=== PATIENT | female | born 1945 | race Caucasian/White ===

== ENCOUNTER 2017-08-16 12:19 | Inpatient (IN) | payer OTHER, BC ==
--- NOTE | 2017-08-16 13:26 | RAD REPORT ---
EXAM DESCRIPTION: Amina Single View08/16/2017 1:18 pm CLINICAL HISTORY: Shortness of breath COMPARISON: 2016 FINDINGS: Mild bilateral social opacities are present. The heart is mildly to moderately enlarged. Postsurgical changes involve the chest. IMPRESSION: Mild CHF
--- NOTE | 2017-08-16 13:38 | EKG ---
Test Date: 2017-08-16 Test Time: 13:15:24 [employer] Support: STEVEN MEASUREMENT RESULTS: Intervals: Rate: 41 MI: 172 QRSD: 150 QT: 508 QTc: 419 [place]: P: 80 MI: 172 QRS: 99 T: 70 INTERPRETIVE STATEMENTS: Marked sinus bradycardia with premature atrial complexes Right bundle branch block Abnormal ECG Compared to ECG 10/12/2015 07:43:26 Atrial premature complex(es) now present Sinus arrhythmia no longer present Atrial abnormality no longer present Electronically Signed On 08-16-17 13:37:49 CDT by Yusuf Montano
[2017-08-16 13:53] LABS: Absolute Lymphocytes (CBC) 2.1 K/uL (0.7-4.9); Absolute Monocytes 0.6 K/uL (0.1-1.3); Absolute Neutrophil 4.1 K/uL (1.8-8.0); Basophils % 0.8 % (0-1.3); Eosinophils % 1.9 % (0-4.4); Hematocrit 37.9 % (36.0-45.0); Lymphocytes % 29.9 % (15.3-44.8); MCV 85.5 fL (80-100); MPV 10.8 fL (7.6-11.3); RBC Red Blood Cell Count 4.43 M/uL (3.86-4.86)
[2017-08-16] MEDS ORDERED: GLUCAGON 1 MG/VIAL ONE (13:55)
[2017-08-16] MEDS ORDERED: FUROSEMIDE 20 MG/ 2ML VIAL ONE (14:03)
[2017-08-16 14:05] LABS: Potassium 5.4 mEq/L (3.6-5.0)
[2017-08-16 14:06] LABS: Protime INR 1.75
[2017-08-16 14:12] LABS: Albumin 3.9 g/dL (3.2-5.5); Bilirubin Direct 0.1 mg/dL (0-0.2); Bilirubin Total 0.8 mg/dL (0.3-1.2); Protein, Total 6.9 g/dL (6.0-8.3)
[2017-08-16 14:15] LABS: CKMB Creatine Kinase MB 1.4 ng/ml (0.3-4.0)
[2017-08-16 14:44] LABS: Thyroid Stimulating Hormone 0.7 uIU/mL (0.34-5.60)
--- NOTE | 2017-08-16 14:52 | EDPHYS ---
Physician Documentation [facility] Name: Jaymie Dill Age: 72 yrs Sex: Female : 1945 Arrival Date: 08/16/2017 Time: 12:23 Bed 4 Private MD: Isaac Andrade B ED Physician Raúl Wilcox HPI: 08/16 13:08 This 72 yrs old Female presents to ER via Wheelchair with complaints of betito Weakness. Historical: - Allergies: 12:44 Codeine; lk1 12:44 Demerol; lk1 12:44 Sulfa (Sulfonamide Antibiotics); lk1 12:44 Tetanus Vaccines \T\ Toxoid; lk1 - Home Meds: 13:19 seroflo 1 puff daily [Active]; Vitamin D3 68630 units oral tab every month [Active]; hj hydralazine 25 mg Oral tab 2 tab daily [Active]; doxazosin 8 mg oral tab 1 tab once daily [Active]; calcitriol 0.25 mcg oral cap 1 cap once daily [Active]; losartan-hydrochlorothiazide 50-12.5 mg oral tab 1 tab once daily [Active]; levothyroxine 88 mcg tab 1 tab once daily [Active]; warfarin 1 mg Oral tab 2 tabs once daily [Active]; - PMHx: 12:44 ESRD; Heart Murmur; Hypertension; Pseudocholinesterase deficiency; lk1 - PSHx: 12:44 open heart surgery; Cholecystectomy; lk1 - Immunization history:: Adult Immunizations up to date. - Social history:: Smoking status: Patient/guardian denies using tobacco. ROS: 13:08 Constitutional: Negative for fever, chills, and weight loss, Eyes: Negative for injury, betito pain, redness, and discharge, ENT: Negative for injury, pain, and discharge, Neck: Negative for injury, pain, and swelling, Respiratory: Negative for shortness of breath, cough, wheezing, and pleuritic chest pain, Abdomen/GI: Negative for abdominal pain, nausea, vomiting, diarrhea, and constipation, Back: Negative for injury and pain, : Negative for injury, bleeding, discharge, and swelling, MS/Extremity: Negative for injury and deformity, Skin: Negative for injury, rash, and discoloration, Psych: Negative for depression, anxiety, suicide ideation, homicidal ideation, and hallucinations, Allergy/Immunology: Negative for hives, rash, and allergies, Endocrine: Negative for neck swelling, polydipsia, polyuria, polyphagia, and marked weight changes, Hematologic/Lymphatic: Negative for swollen nodes, abnormal bleeding, and unusual bruising. 13:08 Cardiovascular: Positive for palpitations. 13:08 Neuro: Positive for dizziness, syncope, weakness. Exam: 13:08 Constitutional: This is a well developed, well nourished patient who is awake, alert, betito and in no acute distress. Head/Face: Normocephalic, atraumatic. Eyes: Pupils equal round and reactive to light, extra-ocular motions intact. Lids and lashes normal. Conjunctiva and sclera are non-icteric and not injected. Cornea within normal limits. Periorbital areas with no swelling, redness, or edema. ENT: Nares patent. No nasal discharge, no septal abnormalities noted. Tympanic membranes are normal and external auditory canals are clear. Oropharynx with no redness, swelling, or masses, exudates, or evidence of obstruction, uvula midline. Mucous membranes moist. Neck: Trachea midline, no thyromegaly or masses palpated, and no cervical lymphadenopathy. Supple, full range of motion without nuchal rigidity, or vertebral point tenderness. No Meningismus. Chest/axilla: Normal chest wall appearance and motion. Nontender with no deformity. No lesions are appreciated. Respiratory: Lungs have equal breath sounds bilaterally, clear to auscultation and percussion. No rales, rhonchi or wheezes noted. No increased work of breathing, no retractions or nasal flaring. Abdomen/GI: Soft, non-tender, with normal bowel sounds. No distension or tympany. No guarding or rebound. No evidence of tenderness throughout. Back: No spinal tenderness. No costovertebral tenderness. Full range of motion. Female : Normal external genitalia. Skin: Warm, dry with normal turgor. Normal color with no rashes, no lesions, and no evidence of cellulitis. MS/ Extremity: Pulses equal, no cyanosis. Neurovascular intact. Full, normal range of motion. Neuro: Awake and alert, GCS 15, oriented to person, place, time, and situation. Cranial nerves II-XII grossly intact. Motor strength 5/5 in all extremities. Sensory grossly intact. Cerebellar exam normal. Normal gait. Psych: Awake, alert, with orientation to person, place and time. Behavior, mood, and affect are within normal limits. 13:08 Cardiovascular: Rate: bradycardic, Rhythm: irregularly irregular, Pulses: Pulses are 4+ in bilateral radial, brachial, femoral, popliteal, posterior tibial and and dorsalis pedis arteries.. Heart sounds: normal, Edema: is not appreciated, JVD: is not appreciated. Vital Signs: 12:45 Pulse 35; Resp 14; Temp 97.7; Pulse Ox 92% on R/A; Weight 58.97 kg (R); Height 5 ft. 3 lk1 in. (160.02 cm) (R); Pain 0/10; 13:13 BP 194 / 51; Pulse 41; Resp 18; Pulse Ox 100% on 2 lpm NC; hj 13:28 BP 195 / 50; Pulse 35; Resp 18; Pulse Ox 100% on 2 lpm NC; hj 14:04 BP 189 / 45; Pulse 36; Resp 18; Pulse Ox 100% on 2 lpm NC; hj 15:09 BP 143 / 47; Pulse 50; Resp 18; Pulse Ox 100% on 2 lpm NC; hj 15:30 BP 146 / 50; Pulse 46; Resp 18; Pulse Ox 100% on 2 lpm NC; hj 12:45 Body Mass Index 23.03 (58.97 kg, 160.02 cm) lk1 12:45 unable to read BP lk1 MDM: 12:52 Patient medically screened. [facility] 13:10 Data reviewed: vital signs, nurses notes, lab test result(s), EKG, radiologic studies, betito plain films. 08/16 13:07 Order name: Basic Metabolic Panel; Complete Time: 14:45 [facility] 08/16 13:07 Order name: BNP; Complete Time: 14:40 [facility] 08/16 13:07 Order name: CBC with Diff; Complete Time: 14:03 [facility] 08/16 13:07 Order name: Ckmb; Complete Time: 14:45 [facility] 08/16 13:07 Order name: CPK; Complete Time: 14:45 [facility] 08/16 13:07 Order name: LFT's; Complete Time: 14:45 [facility] 08/16 13:07 Order name: Magnesium; Complete Time: 14:45 [facility] 08/16 13:07 Order name: PT-INR; Complete Time: 14:40 [facility] 08/16 13:07 Order name: Ptt, Activated; Complete Time: 14:40 [facility] 08/16 13:07 Order name: Troponin (emerg Dept Use Only); Complete Time: 14:40 [facility] 08/16 13:07 Order name: XRAY Chest (1 view); Complete Time: 14:03 [facility] 08/16 13:07 Order name: Lipase; Complete Time: 14:45 [facility] 08/16 13:39 Order name: TSH; Complete Time: 14:45 [facility] 08/16 14:45 Order name: CT Head Brain wo Cont [facility] 08/16 13:07 Order name: EKG; Complete Time: 13:08 [facility] 08/16 13:07 Order name: Cardiac monitoring; Complete Time: 13:12 [facility] 08/16 13:07 Order name: EKG - Nurse/Tech; Complete Time: 13:26 [facility] 08/16 13:07 Order name: IV Saline Lock; Complete Time: 13:12 [facility] 08/16 13:07 Order name: Labs collected and sent; Complete Time: 13:12 [facility] 08/16 14:46 Order name: EKG; Complete Time: 14:46 [facility] 08/16 14:59 Order name: CONS Physician Consult EDWA 08/16 14:59 Order name: Echo with Doppler EDWA 08/16 15:34 Order name: CT EDWA 08/16 16:39 Order name: MRI EDWA 08/16 17:00 Order name: VAS EDWA 08/16 13:07 Order name: O2 Per Protocol; Complete Time: 13:12 [facility] 08/16 13:07 Order name: O2 Sat Monitoring; Complete Time: 13:12 [facility] 08/16 13:25 Order name: Labs - recollect needed; Complete Time: 13:26 08/16 14:46 Order name: EKG - Nurse/Tech; Complete Time: 15:09 [facility] Administered Medications: 13:33 Drug: Glucagon 1 mg Route: IVP; Site: right antecubital; hj 13:40 Follow up: Response: No adverse reaction hj 13:40 Drug: Lasix 20 mg Route: IVP; Site: right antecubital; hj 13:47 Follow up: Response: No adverse reaction hj 14:43 Drug: Albuterol - atroVENT (3:1) (2.5 mg - 0.5 mg) 3 ml Route: Nebulizer; hj 15:09 Follow up: Response: No adverse reaction 14:43 Drug: Kayexalate 30 grams Route: PO; hj 15:08 Follow up: Response: No adverse reaction hj 15:08 Drug: Zofran 4 mg Route: IVP; Site: right antecubital; hj 15:08 Follow up: Response: No adverse reaction Disposition: 08/16/17 14:52 Hospitalization ordered by Jaime Cosby for Inpatient Admission. Preliminary diagnosis are Syncope and collapse, Dizziness and giddiness, Bradycardia, unspecified, Unspecified systolic (congestive) heart failure, Unspecified kidney failure - mild hyperkalemia, Hypercalcemia. - Bed requested for Telemetry/MedSurg (Inpatient). - Status is Inpatient Admission. iw - Condition is Fair. - Problem is new. - Symptoms have improved. UTI on Admission? No Signatures: Dispatcher [employer] EDMS Li England Corey, MD MD cha Williams, Irene, RN RN Thee Landaverde RN RN hj Kluge, Leah RN RN lk1
--- NOTE | 2017-08-16 14:52 | ER ---
Nurse's Notes [facility] Name: Jaymie iDll Age: 72 yrs Sex: Female : 1945 Arrival Date: 08/16/2017 Time: 12:23 Bed 4 Private MD: Isaac Andrade B Diagnosis: Syncope and collapse;Dizziness and giddiness;Bradycardia, unspecified;Unspecified systolic (congestive) heart failure;Unspecified kidney failure-mild hyperkalemia;Hypercalcemia Presentation: 08/16 12:41 Presenting complaint: Patient states: "I am real real weak. I passed out a few days ago lk1 and again last night. I went to Dr. Massey Monday and he started me on Metoprolol, but I was feeling weak before that.". Presenting complaint:. Transition of care: patient was not received from another setting of care. Onset of symptoms was August 12, 2017. Care prior to arrival: None. 12:41 Method Of Arrival: Wheelchair lk1 12:41 Acuity: SALUD 3 lk1 Triage Assessment: 12:44 General: Appears in no apparent distress. Behavior is calm, cooperative, appropriate lk1 for age. Pain: Denies pain. Neuro: Level of Consciousness is awake, alert, obeys commands, Oriented to person, place, time, situation, Moves all extremities. Weakness in bilateral arm(s) leg(s) Speech is normal, Facial symmetry appears normal. Historical: - Allergies: 12:44 Codeine; lk1 12:44 Demerol; lk1 12:44 Sulfa (Sulfonamide Antibiotics); lk1 12:44 Tetanus Vaccines \\T\\ Toxoid; lk1 - Home Meds: 13:19 seroflo 1 puff daily [Active]; Vitamin D3 87287 units oral tab every month [Active]; hj hydralazine 25 mg Oral tab 2 tab daily [Active]; doxazosin 8 mg oral tab 1 tab once daily [Active]; calcitriol 0.25 mcg oral cap 1 cap once daily [Active]; losartan-hydrochlorothiazide 50-12.5 mg oral tab 1 tab once daily [Active]; levothyroxine 88 mcg tab 1 tab once daily [Active]; warfarin 1 mg Oral tab 2 tabs once daily [Active]; - PMHx: 12:44 ESRD; Heart Murmur; Hypertension; Pseudocholinesterase deficiency; lk1 - PSHx: 12:44 open heart surgery; Cholecystectomy; lk1 - Immunization history:: Adult Immunizations up to date. - Social history:: Smoking status: Patient/guardian denies using tobacco. Screenin:07 Abuse screen: Denies threats or abuse. Denies injuries from another. Nutritional hj screening: No deficits noted. Tuberculosis screening: No symptoms or risk factors identified. Fall Risk Fall in past 12 months (25 points). Assessment: 13:09 General: Appears in no apparent distress. uncomfortable, slender, Behavior is calm, hj cooperative, appropriate for age. Pain: Denies pain. Neuro: Level of Consciousness is awake, alert, obeys commands, Oriented to person, place, time, situation, Appropriate for age. Cardiovascular: Capillary refill < 3 seconds Patient's skin is warm and dry. Respiratory: Airway is patent Respiratory effort is even, unlabored, Respiratory pattern is regular. GI: No signs and/or symptoms were reported involving the gastrointestinal system. : No signs and/or symptoms were reported regarding the genitourinary system. EENT: No signs and/or symptoms were reported regarding the EENT system. Derm: No signs and/or symptoms reported regarding the dermatologic system. Musculoskeletal: No signs and/or symptoms reported regarding the musculoskeletal system. 14:04 Reassessment: Patient and/or family updated on plan of care and expected duration. Pain hj level reassessed. Patient is alert, oriented x 3, equal unlabored respirations, skin warm/dry/pink. awaiting results;. 15:06 Reassessment: Patient and/or family updated on plan of care and expected duration. Pain hj level reassessed. Patient is alert, oriented x 3, equal unlabored respirations, skin warm/dry/pink. vomited x 1; MD notified with orders;. 15:19 Reassessment: wheeled to CT;. hj 15:30 Reassessment: Patient and/or family updated on plan of care and expected duration. Pain hj level reassessed. Patient is alert, oriented x 3, equal unlabored respirations, skin warm/dry/pink. came back from CT;. 16:39 Reassessment: wheeled to MRI:. hj Vital Signs: 12:45 Pulse 35; Resp 14; Temp 97.7; Pulse Ox 92% on R/A; Weight 58.97 kg (R); Height 5 ft. 3 lk1 in. (160.02 cm) (R); Pain 0/10; 13:13 BP 194 / 51; Pulse 41; Resp 18; Pulse Ox 100% on 2 lpm NC; hj 13:28 BP 195 / 50; Pulse 35; Resp 18; Pulse Ox 100% on 2 lpm NC; hj 14:04 BP 189 / 45; Pulse 36; Resp 18; Pulse Ox 100% on 2 lpm NC; hj 15:09 BP 143 / 47; Pulse 50; Resp 18; Pulse Ox 100% on 2 lpm NC; hj 15:30 BP 146 / 50; Pulse 46; Resp 18; Pulse Ox 100% on 2 lpm NC; hj 12:45 Body Mass Index 23.03 (58.97 kg, 160.02 cm) lk1 12:45 unable to read BP lk1 ED Course: 12:23 Patient arrived in ED. mr 12:23 Isaac Andrade MD is Private Physician. mr 12:44 Triage completed. lk1 12:50 Arm band placed on right wrist. lk1 12:52 Raúl Wilcox MD is Attending Physician. betito 12:53 Thee Landaverde RN is Primary Nurse. hj 13:07 Patient has correct armband on for positive identification. Placed in gown. Bed in low hj position. Call light in reach. Side rails up X2. Adult w/ patient. 13:09 Initial lab(s) drawn, by me, sent to lab. Inserted saline lock: 20 gauge in right hj antecubital area, using aseptic technique. Blood collected. 13:15 X-ray completed. Portable x-ray completed in exam room. Patient tolerated procedure jb2 well. 13:16 XRAY Chest (1 view) In Process Unspecified. EDMS 13:35 EKG done, by supply chain tech. reviewed by Raúl Wilcox MD. tc 14:50 Jaime Cosby DO is Hospitalizing Provider. betito 14:54 Radiology exam delayed due to bedside bathroom at this time. jg1 15:[address] via stretcher. nj 15:25 CT completed. Patient tolerated procedure well. Patient moved back from CT. nj 16:21 Patient moved to MRI via stretcher. em2 16:24 MRI completed. Patient tolerated well. em2 16:25 Patient taken to ultrasound. via stretcher. em2 16:52 Ultrasound completed. Patient tolerated well. Note: via stretcher. . Patient taken to sheree an exam room. 17:02 No provider procedures requiring assistance completed. Patient admitted, IV remains in hj place. Administered Medications: 13:33 Drug: Glucagon 1 mg Route: IVP; Site: right antecubital; hj 13:40 Follow up: Response: No adverse reaction hj 13:40 Drug: Lasix 20 mg Route: IVP; Site: right antecubital; hj 13:47 Follow up: Response: No adverse reaction hj 14:43 Drug: Albuterol - atroVENT (3:1) (2.5 mg - 0.5 mg) 3 ml Route: Nebulizer; hj 15:09 Follow up: Response: No adverse reaction hj 14:43 Drug: Kayexalate 30 grams Route: PO; hj 15:08 Follow up: Response: No adverse reaction hj 15:08 Drug: Zofran 4 mg Route: IVP; Site: right antecubital; hj 15:08 Follow up: Response: No adverse reaction Outcome: 14:52 Decision to Hospitalize by Provider. betito 17:02 Admitted to Med/surg accompanied by tech, family with patient, via stretcher, room 212, hj Report called to MARINO Stiles 17:02 Condition: stable 17:02 Instructed on the need for admit, Demonstrated understanding of instructions. 17:15 Patient left the ED. iw Signatures: Dispatcher [employer] EDRaúl Goode MD MD cha Rivera, Maria mr Cordero, Jason jb2 Meghan Dominguez jg1 Unique Gilmore, Thierry Batista RN em2 Janette Sommers, visual supervisor EKG [facility] Thee Landaverde RN RN hj Kluge, Leah, RN RN Temo Rice jd, Nathan nj
[2017-08-16] MEDS ORDERED: SOD POLYSTYREN SUL 15 GM/60 ML UCUP ONE (15:14)
[2017-08-16] MEDS ORDERED: ALBUTEROL 2.5 MG/3 ML NEB SOL ONE (15:14)
[2017-08-16] MEDS ORDERED: IPRATROPIUM BROM 0.5MG/2.5ML ONE (15:14)
[2017-08-16] MEDS ORDERED: ONDANSETRON 4 MG/2 ML VIAL ONE (15:19)
[2017-08-16] MEDS ORDERED: ACETAMINOPHEN 500 MG TAB PO PRN (15:24)
[2017-08-16] MEDS ORDERED: ONDANSETRON 4 MG/2 ML VIAL IV PRN (15:24)
[2017-08-16] MEDS ORDERED: IPRATROPIUM BROM 0.5MG/2.5ML NEB PRN (15:24)
[2017-08-16] MEDS ORDERED: ALBUTEROL 2.5 MG/3 ML NEB SOL NEB PRN (15:24)
--- NOTE | 2017-08-16 15:33 | RAD REPORT ---
EXAM DESCRIPTION: CT - Head Brain Wo Cont - 08/16/2017 3:26 pm CLINICAL HISTORY: Syncope COMPARISON: None. TECHNIQUE: Computed axial tomography of the head was obtained. IV contrast was not requested. All CT scans are performed using dose optimization technique as appropriate and may include automated exposure control or mA/KV adjustment according to patient size. FINDINGS: An intracranial bleed is not seen . The ventricles are normal in caliber. No extra-axial fluid collection is noted. Fluid within the sinuses/ mastoids is not seen. IMPRESSION: No acute intracranial abnormality is seen. If patient's symptoms persist MRI of the bra in would be recommended.
--- NOTE | 2017-08-16 15:44 | P.HP ---
Certification for Inpatient Patient admitted to: Inpatient With expected LOS: >2 Midnights Patient will require the following post-hospital care: None Practitioner: I am a practitioner with admitting privileges, knowledge of patient current condition, hospital course, and medical plan of care. Services: Services provided to patient in accordance with Admission requirements found in Title 42 Section 412.3 of the Code of Federal Regulations Patient History Date of Service: 08/16/17 Primary Care Provider: Dr. Andrade; Card-Dr. Raygoza; Pulm-Dr. Hamilton; Nephrology-Dr. Connors Reason for admission: Fatigue, syncope, shortness of breath History of Present Illness: 72-year-old female presented emergency room with multiple complaints including weakness, syncope and shortness of breath. The patient reports that she has been having episodes of syncope since the weekend. She 1st had an episode on Monday morning. This was very brief. She did not go to the emergency room at that time. Then she had 1 last night. Patient also reports blood pressure being elevated. She went to see her marine service manager on Monday. She was started on metoprolol at that time. Over the last day she has been having increasing shortness of breath. Weakness has been noted. She denies any chest pain. No significant nausea or vomiting noted. In the ER she was evaluated. CBC was unremarkable. Lab was remarkable for elevated potassium of 5.4, creatinine 2.68 with a GFR 17. Calcium 10.7. Troponin less than 0.03. BNP elevated at 484. Chest x-ray showed mild CHF. Patient also had bradycardia with a rate as low as 30 ranging from 30-50. Blood pressure elevated at 180 systolic. Due to nature of her symptoms the patient was admitted for further evaluation. She was treated in the ER for her hyperkalemia. In the ER when I evaluated the patient, she appeared without any respiratory distress. No significant edema to the lower extremities. Patient has significant history of pulmonary hypertension, chronic renal disease, history of DVT on anti coagulation. She sees multiple specialists including cardiology , nephrology, and pulmonology. Patient has a history of ventricular septal defect repair. Patient takes multiple medications for blood pressure including hydralazine, doxazosin, losartan and hydrochlorothiazide. Allergies Sulfa (Sulfonamide Antibiotics) Allergy (Intermediate, Verified 10/11/15 23:03) Anaphylaxis Tetanus Vaccines and Toxoid [Tetanus Vaccines & Toxoid] Allergy (Intermediate, Verified 10/11/15 23:03) unknown codeine Allergy (Mild, Verified 10/11/15 23:03) Nausea/Vomiting meperidine HCl [From Demerol] Allergy (Mild, Verified 10/11/15 23:03) Nausea/Vomiting Home medications list reviewed: Yes Home Medications: Amlodipine Besylate/Benazepril [Lotrel 10-20 mg Capsule] 1 each PO DAILY Cholecalciferol (Vitamin D3) [Vitamin D3] 1,000 unit PO DAILY 10/12/15 Citalopram Hydrobromide [Celexa] 10 mg PO DAILY 10/12/15 Fexofenadine HCl [Angelika Allergy] 180 mg PO DAILY 10/12/15 Folic Acid 0.4 mg PO DAILY 10/12/15 Levothyroxine [Synthroid*] 88 mcg PO [id number] 10/12/15 Magnesium Oxide [Magnesium] 400 mg PO DAILY 10/12/15 Pravastatin [Pravachol*] 40 mg PO DAILY 10/12/15 Vit A/Vit C/Vit E/Zinc/Copper [Preservision Areds Softgel] 1 each PO DAILY 10/11 Warfarin Sodium [Coumadin*] 2 mg PO DAILY 5 PM 10/12/15 Hydralazine [Apresoline*] 50 mg PO TID #90 tab 10/15/15 Levofloxacin [Levaquin] 500 mg PO DAILY #7 tab 10/15/15 Magnesium Oxide [Mag 0X*] 800 mg PO BID #20 tab 10/15/15 - Past Medical/Surgical History Diabetic: No -: Severe pulmonary hypertension -: History VSD repair -: COPD -: Chronic renal disease -: Hypothyroidism -: History DVT, chronic anti coagulation therapy -: VSD repair 1999 -: Cholecystectomy Psychosocial/ Personal History: The patient is of 3 years. She has no children. - Family History Family History: Reviewed- Non-Contributory - Family History Father -: Heart disease, Hypertension Notes: heart murmur - Social History Smoking Status: Never smoker Alcohol use: No CD- Drugs: No Caffeine use: Yes Place of Residence: Home Review of Systems General: Weakness, Malaise, As per HPI Eyes: Unremarkable ENT: Unremarkable Respiratory: Shortness of Breath, As per HPI Cardiovascular: As per HPI Gastrointestinal: As per HPI Genitourinary: Unremarkable Musculoskeletal: Unremarkable Integumentary: Unremarkable Neurological: Weakness, As per HPI Lymphatics: Unremarkable Physical Examination - Physical Exam General: Alert, In no apparent distress, Oriented x3, Cooperative HEENT: Atraumatic, Normocephalic, PERRLA, Mucous membr. moist/pink Neck: Supple, No Thyromegaly Respiratory: Crackles/rales (Minimal crackles to the bases bilateral, good air movement bilateral to the anterior chest) Cardiovascular: Abnormal pulses (Sinus bradycardia) Gastrointestinal: Normal bowel sounds, Soft and benign, Non-distended, No ascites, No tenderness, No masses, No rebound, No guarding Musculoskeletal: No contractures, No erythema, No tenderness, No warmth Integumentary: No tenderness/swelling, No erythema, No warmth, No cyanosis Neurological: Normal speech, Normal strength at 5/5 x4 extr, Normal tone, Normal affect Lymphatics: No axilla or inguinal lymphadenopathy - Studies Laboratory Data (last 24 hrs) 08/16/17 13:35: PT 20.8 H, INR 1.75, APTT 45.1 H 08/16/17 13:35: WBC 7.0, Hgb 12.4, Hct 37.9, Plt Count 152 08/16/17 13:35: B-Natriuretic Peptide 484 H 08/16/17 13:35: Sodium 138, Potassium 5.4 H, BUN 70 H, Creatinine 2.69 H, Glucose 94, Magnesium 2.0, Total Bilirubin 0.8, AST 41, ALT 26, Alkaline Phosphatase 110, Lipase 43 Assessment and Plan - Problems (Diagnosis) (1) Syncope Current Visit: Yes Status: Acute Plan: Etiology unknown. Likely from bradycardia. Patient with elevated blood pressure. Will make adjustments to medication. Will discontinue metoprolol. Will continue with hydralazine and Doxazosin. Will add Norvasc. Will hold losartan/hydrochlorothiazide at this time. Pulmonology, cardiology and Nephrology have been consulted to further address other multiple issues. Will check CT head. Will check echocardiogram and carotid Doppler. Will provide IV Lasix due to pulmonary edema noted on exam. Will monitor this closely as the patient has underlying chronic renal disease. Patient also treated for hyperkalemia. Patient given Kayexalate in the emergency room. Will continue monitor closely. Qualifiers: Syncope type: unspecified Qualified Code(s): R55 - Syncope and collapse (2) Chronic renal disease Current Visit: Yes Status: Acute Plan: Will monitor this closely. Nephrology consulted to further evaluate and address. Qualifiers: Chronic kidney disease stage: stage 4 (severe) Qualified Code(s): N18.4 - Chronic kidney disease, stage 4 (severe) (3) Pulmonary edema Current Visit: Yes Status: Acute Plan: Patient had mild pulmonary edema noted on chest x-ray. Will provide Lasix. This should help with hyperkalemia as well. Patient with chronic renal disease. Will monitor this closely. Nephrology consulted. Pulmonology also consulted Qualifiers: Chronicity: acute Qualified Code(s): J81.0 - Acute pulmonary edema (4) Pulmonary hypertension Current Visit: Yes Status: Chronic Plan: Patient with history of severe pulmonary hypertension. Will continue with diuresis. Pulmonology consulted to further evaluate. Will check echocardiogram. (5) Hypothyroidism Current Visit: Yes Status: Chronic Plan: Will continue with her medication. Will check TSH. Qualifiers: Hypothyroidism type: unspecified Qualified Code(s): E03.9 - Hypothyroidism , unspecified (6) COPD (chronic obstructive pulmonary disease) Current Visit: Yes Status: Chronic Plan: Patient with history of COPD. Will provide medication. Pulmonology consulted. Qualifiers: COPD type: chronic bronchitis (7) Chronic anticoagulation Current Visit: Yes Status: Chronic Plan: Will continue with her Coumadin. Will monitor INR closely. (8) History of DVT (deep vein thrombosis) Current Visit: Yes Status: Chronic Plan: Patient on Coumadin. Will continue as above. (9) Bradycardia Onset Date: 10/13/15 Current Visit: No Status: Acute Plan: Bradycardia likely related to new medication added recently. Metoprolol has been discontinued. Cardiology consulted to further evaluate. (10) Hyperkalemia Onset Date: 10/13/15 Current Visit: No Status: Acute Plan: Patient given Kayexalate in the ER. Will monitor this closely. Will provide Lasix. Discharge Plan: Home Plan to discharge in: Greater than 2 days - Advance Directives Does patient have a Living Will: Yes Does patient have a Durable POA for Healthcare: Yes - Code Status/Comfort Care Code Status Assessed: Yes Time Spent Managing Pts Care (In Minutes): 55
--- NOTE | 2017-08-16 16:38 | RAD REPORT ---
EXAM DESCRIPTION: MRI - Brain Wo Cont - 08/16/2017 4:26 pm CLINICAL HISTORY: Altered consciousness, syncope, CVA. COMPARISON: 08/16/2017 TECHNIQUE: Multi-sequence, multiplanar MR imaging of the brain was performed without contrast. FINDINGS: No intracranial hemorrhage, hydrocephalus or extra-axial fluid collections. No edema or sh ift of midline structures. No findings to suspect brain mass. DWI is negative for acute CVA. Midline structures are normally formed. Mastoid air cells and paranasal sinuses are clear. IMPRESSION: No acute or concerning intracranial abnormalities.
[2017-08-16 16:55] VITALS: BMI 23.0
[2017-08-16] MEDS ORDERED: WARFARIN SODIUM 1 MG TAB PO SCH (17:00)
--- NOTE | 2017-08-16 17:00 | RAD REPORT ---
EXAM DESCRIPTION: ARTEMIO - CP - 08/16/2017 4:53 pm CLINICAL HISTORY: Syncope COMPARISON: None. TECHNIQUE: Real-time sonographic evaluation of both carotid systems was performed. Doppler interroga tion was performed with waveform tracing bilaterally. FINDINGS: Normal high resistance waveforms are noted in both external carotid arteries. The common c arotid arteries and internal carotid arteries show normal low resistance waveforms. Minimal soft plaquing is seen in both proximal internal carotid arteries. Peak systolic and end diast olic velocity values and the ICA/CCA ratios are in the non-hemodynamically significant range. Antegrade flow seen in both vertebral arteries. IMPRESSION: Minimal soft plaquing in both proximal internal carotid arteries. No evidence of a hemodynamically significant stenosis.
[2017-08-16] MEDS: FUROSEMIDE 20 MG/ 2ML VIAL IV SCH (17:56)
[2017-08-16 18:16] LABS: Urine Appearance CLEAR; Urine Bilirubin NEGATIVE (NEG); Urine Blood NEGATIVE (NEG); Urine Color YELLOW; Urine Glucose NEGATIVE (NEG); Urine Protein TRACE (NEG); Urine Urobilinogen 0.2 mg/dL (0.2-1.0)
[2017-08-16 18:21] LABS: Urine Microscopic Reflex NO UMIC
[2017-08-16] MEDS: ARFORMOTEROL TARTRATE 15 MCG/2 ML VIAL.NEB NEB SCH (19:30)
[2017-08-16] MEDS: HYDRALAZINE HCL 25 MG TABLET PO SCH (20:17)
--- NOTE | 2017-08-16 20:54 | RAD REPORT ---
EXAM DESCRIPTION: US - Renal Ultrasound-Complete - 08/16/2017 8:42 pm CLINICAL HISTORY: . Acute renal failure COMPARISON: 2017 FINDINGS: The right kidney measures 9 cm with an increased echotexture. The left kidney measures 9 cm with an increased echotexture. Hydronephrosis is not seen. A 1.3 centimeter cyst is present within each kidney IMPRESSION: Increased renal echotexture consistent with parenchymal disease No hydronephrosis
[2017-08-16] MEDS ORDERED: DOXAZOSIN 4 MG TAB PO SCH (21:00)
[2017-08-16 21:37] LABS: CKMB Creatine Kinase MB 1.8 ng/ml (0.3-4.0); Uric Acid 8.7 mg/dL (2.6-8.0)
[2017-08-17 05:09] LABS: Absolute Monocytes 0.7 K/uL (0.1-1.3); Absolute Neutrophil 4.3 K/uL (1.8-8.0); Basophils % 0.9 % (0-1.3); Eosinophils % 1.2 % (0-4.4); Hematocrit 36.5 % (36.0-45.0); Lymphocytes % 27.8 % (15.3-44.8); MCH 27.9 pg (27.0-35.0); MCV 85.1 fL (80-100); MPV 10.9 fL (7.6-11.3); Monocytes % 9.5 % (3.3-12.3); RBC Red Blood Cell Count 4.29 M/uL (3.86-4.86)
[2017-08-17 05:23] LABS: Protime INR 1.89
[2017-08-17 05:49] LABS: CKMB Creatine Kinase MB 2.2 ng/ml (0.3-4.0)
[2017-08-17] MEDS ORDERED: LEVOTHYROXINE SOD 0.088 MG TAB PO SCH (06:00)
[2017-08-17] MEDS ORDERED: PANTOPRAZOLE 40MG TABLET PO SCH (07:30)
[2017-08-17] MEDS: ARFORMOTEROL TARTRATE 15 MCG/2 ML VIAL.NEB NEB SCH (07:31)
--- NOTE | 2017-08-17 08:12 | ECHO ---
HEIGHT: 5 ft 3 in WEIGHT: 130 lb 0.106 oz DATE OF STUDY: 08/16/[address]: Jaime Cosby DO 2-DIMENSIONAL: YES M.MODE: YES DOPPLER: YES COLOR FLOW: YES TDS: NO PORTABLE: NO DEFINITY: NO BUBBLE STUDY: NO DIAGNOSIS: CONGESTIVE HEART FAILURE CARDIAC HISTORY: CATHERIZATION: NO SURGERY: YES PROSTHETIC VALVE: NO PACEMAKER: NO MEASUREMENTS (cm) DIASTOLIC (NORMALS) SYSTOLIC (NORMALS) IVSd 0.8 (0.6-1.2) LA Diam (1.9-4.0) LVEF 79% LVIDd 4.3 (3.5-5.7) LVIDs 2.3 (2.0-3.5) %FS 47% LVPWd 1.0 (0.6-1.2) Ao Diam 2.3 (2.0-3.7) 2 DIMENSIONAL ASSESSMENT: RIGHT ATRIUM: NORMAL LEFT ATRIUM: NORMAL RIGHT VENTRICLE: NORMAL LEFT VENTRICLE: NORMAL TRICUSPID VALVE: NORMAL MITRAL VALVE: NORMAL PULMONIC VALVE: NORMAL AORTIC VALVE: NORMAL PERICARDIAL EFFUSION: NONE AORTIC ROOT: NORMAL LEFT VENTRICULAR WALL MOTION: NORMAL. DOPPLER/COLOR FLOW: MODERATE TRICUSPID REGURGITATION. SEVERE PULMONARY HYPERTENSION. ESTIMATED RIGHT VENTRICULAR SYSTOLIC PRESSURE 80mmHg. COMMENTS: NORMAL 2D ECHO. MODERATE TRICUSPID REGURGITATION. SEVERE PULMONARY HYPERTENSION. TECHNOLOGIST: HAVEN KAHN
--- NOTE | 2017-08-17 08:25 | RAD REPORT ---
EXAM DESCRIPTION: Amina Pa And Lat (2 Views)08/17/2017 6:34 am CLINICAL HISTORY: Shortness of breath COMPARISON: August 16 FINDINGS: Minimal improvement in bilateral interstitial lung opacities has occurred. The heart has m ildly decreased in size and is within normal limits. IMPRESSION: Improvement in mild CHF
[2017-08-17 08:28] LABS: Magnesium 2.1 mg/dL (1.8-2.5); Thyroid Stimulating Hormone 0.42 uIU/mL (0.34-5.60)
[2017-08-17 08:46] LABS: Potassium 5.7 mEq/L (3.6-5.0)
[2017-08-17] MEDS ORDERED: SOD POLYSTYREN SUL 15 GM/60 ML UCUP PO ONE (08:47)
[2017-08-17] MEDS: HYDRALAZINE HCL 25 MG TABLET PO SCH (09:00)
[2017-08-17] MEDS ORDERED: AMLODIPINE 5 MG TAB PO SCH (09:00)
[2017-08-17] MEDS: FUROSEMIDE 20 MG/ 2ML VIAL IV SCH (09:00)
[2017-08-17 09:29] VITALS: O2SAT 98
--- NOTE | 2017-08-17 10:10 | EKG ---
Test Date: 2017-08-16 Test Time: 15:09:58 Hospital Product Specialist: STEVEN MEASUREMENT RESULTS: Intervals: Rate: 47 [place]: 176 QRSD: 144 QT: 482 QTc: 426 [place]: P: 76 [place]: 176 QRS: 99 T: 66 INTERPRETIVE STATEMENTS: Sinus bradycardia with sinus arrhythmia Right bundle branch block Abnormal ECG Compared to ECG 08/16/2017 13:15:24 Atrial premature complex(es) no longer present Electronically Signed On 08-17-17 10:07:56 CDT by Jerry Raygoza
--- NOTE | 2017-08-17 11:51 | CON ---
Date of Consultation: 08/17/2017 Reason For Consultation: Syncope and weakness. History Of Present Illness: Ms. Dill is a 72-year-old white woman who has a history of ventricu lar septal defect repair and pulmonary hypertension secondary to that. She has a history of renal in sufficiency that is severe, hypertension. She has hypertension that is poorly controlled. I saw her in the office about 3 days ago. We started her on low-dose beta-irina. Her blood pressure is muc h better controlled, but she came in with a heart rate of 40, syncopal episode, and chronic right bun dle-branch block. Renal Doppler in the office has been done recently and is negative and had a negat hyacinth Cardiolite within the last year. Denied chest pain, nausea, vomiting, diaphoresis, PND, orthopne a, pedal edema, or palpitations. Past Medical History: As stated above. Allergies: INCLUDE CODEINE, DEMEROL, SULFA, AND TETANUS. Review of Systems: Negative. Social History: Negative. Family History: Negative. Medications: At home include hydralazine, Toprol, Cardura, Hyzaar, and Coumadin. Physical Examination: General: She appears to be rather weak, fatigued. No acute distress otherwise. Vital Signs: Stable. Her blood pressure is 140/64. Her heart rate in the 40s. HEENT: Negative. Neck: Supple without any bruit, lymphadenopathy, JVD, or thyromegaly. Chest: Clear. Cardiac: Revealed a regular rhythm and rate with a with a 3/6 holosystolic murmur radiating to the b ack. No S3 or S4, gallops, no rubs. Abdomen: Benign. Extremities: Reveal no clubbing, cyanosis, or edema. Diagnostic Data: Her INR was 1.75. Her calcium was 10.7. Chest x-ray showed mild failure. BNP is 484. Creatinine is 2.69. MRI is negative of the brain. Carotid Doppler negative. EKG showed right bundle-branch block, bradycardia. Impression And Plan: 1.Syncope, may be secondary to bradycardia. 2.History of ventricular septal defect repair. 3.Severe renal insufficiency. 4.Hypertension. Negative renal Doppler, negative carotid, negative stress test. There is an echoca rdiogram pending for today. I will consider switching the Hyzaar to losartan alone and maybe give he r low-dose Lasix to go home with. I would definitely discontinue her beta-irina. I think we will see what she does without the beta-irina. I would like her to get an event monitor in my office as an outpatient and she may end up needing a pacemaker. 5.I will discuss the case further with Dr. Cosby. RENUKA/MARCO Voice ID: [id number] Report ID: [id number]
[2017-08-17 12:20] VITALS: BP 193/73; TEMP 97.4
--- NOTE | 2017-08-17 13:02 | P.DS ---
Admission Date: 08/16/17 Discharge Date: 08/17/17 Primary Care Provider: Dr. Andrade; Card-Dr. Raygoza; Pulm-Dr. Hamilton; Nephrology-Dr. Connors Disposition: ROUTINE DISCHARGE Discharge Condition: GOOD Reason for Admission: Fatigue, syncope, shortness of breath Consultations: Pulmonology-Dr. Hamilton Cardiology-Dr. Raygoza Nephrology-Dr. Morales Procedures: Echocardiogram: Ejection fraction 79%. Severe pulmonary hypertension noted. MRI brain: No acute abnormality noted. CT scan: No acute abnormality noted. Carotid Doppler: No significant stenosis noted. - Problems (1) Syncope Onset Date: 08/17/17 Current Visit: Yes Status: Acute Qualifiers: Syncope type: unspecified Qualified Code(s): R55 - Syncope and collapse (2) Chronic renal disease Onset Date: 08/17/17 Current Visit: Yes Status: Acute Qualifiers: Chronic kidney disease stage: stage 4 (severe) Qualified Code(s): N18.4 - Chronic kidney disease, stage 4 (severe) (3) Pulmonary edema Onset Date: 08/17/17 Current Visit: Yes Status: Acute Qualifiers: Chronicity: acute Qualified Code(s): J81.0 - Acute pulmonary edema (4) Pulmonary hypertension Onset Date: 08/17/17 Current Visit: Yes Status: Chronic (5) Hypothyroidism Onset Date: 08/17/17 Current Visit: Yes Status: Chronic Qualifiers: Hypothyroidism type: unspecified Qualified Code(s): E03.9 - Hypothyroidism , unspecified (6) COPD (chronic obstructive pulmonary disease) Onset Date: 08/17/17 Current Visit: Yes Status: Chronic Qualifiers: COPD type: chronic bronchitis (7) Chronic anticoagulation Onset Date: 08/17/17 Current Visit: Yes Status: Chronic (8) History of DVT (deep vein thrombosis) Onset Date: 08/17/17 Current Visit: Yes Status: Chronic (9) Bradycardia Onset Date: 08/17/17 Current Visit: No Status: Acute (10) Hyperkalemia Onset Date: 08/17/17 Current Visit: No Status: Acute Brief History of Present Illness: 72-year-old female presented emergency room with multiple complaints including weakness, syncope and shortness of breath. The patient reports that she has been having episodes of syncope since the weekend. She 1st had an episode on Monday morning. This was very brief. She did not go to the emergency room at that time. Then she had 1 last night. Patient also reports blood pressure being elevated. She went to see her conditioner tender on Monday. She was started on metoprolol at that time. Over the last day she has been having increasing shortness of breath. Weakness has been noted. She denies any chest pain. No significant nausea or vomiting noted. In the ER she was evaluated. CBC was unremarkable. Lab was remarkable for elevated potassium of 5.4, creatinine 2.68 with a GFR 17. Calcium 10.7. Troponin less than 0.03. BNP elevated at 484. Chest x-ray showed mild CHF. Patient also had bradycardia with a rate as low as 30 ranging from 30-50. Blood pressure elevated at 180 systolic. Due to nature of her symptoms the patient was admitted for further evaluation. She was treated in the ER for her hyperkalemia. In the ER when I evaluated the patient, she appeared without any respiratory distress. No significant edema to the lower extremities. Patient has significant history of pulmonary hypertension, chronic renal disease, history of DVT on anti coagulation. She sees multiple specialists including cardiology , nephrology, and pulmonology. Patient has a history of ventricular septal defect repair. Patient takes multiple medications for blood pressure including hydralazine, doxazosin, losartan and hydrochlorothiazide. Hospital Course: The patient did well during the course of her stay. The patient had no further syncopal episode. Patient had bradycardia, rate around 45-60. Patient was evaluated by cardiology. Echocardiogram shows severe pulmonary hypertension with ejection fraction 79%. Patient had MRI brain, CT head, and carotid Doppler which were unremarkable. During her stay medications were adjusted. Losartan/hydrochlorothiazide and metoprolol were discontinued. At discharge patient has been started on Lasix 40 mg daily and Norvasc 5 mg daily. Patient will continue with Cardura 4 mg 1 pill twice daily. Hydralazine has been adjusted to 25 mg 1 pill 3 times a day. Cardiology recommended no further intervention at this time. Pulmonology if reported that she has not been able to afford specialized medication for pulmonary hypertension. Cardiology recommends that the patient can be discharged. The patient will follow up with cardiology within 1 week. Cardiology plans to have the patient get an event monitor set up as an outpatient to monitor and evaluate the bradycardia. Cardiology also plans to send the patient to be pulmonary hypertensive Clinic in [place]. Patient will likely require pulmonary hypertensive medication after her evaluation in [place]. Recommendation is to maintain blood pressures less 150/80. Further adjustment can be done by cardiology. Patient has hypothyroidism. She will continue with her medication-Levoxyl 88 mcg daily. Patient has history of COPD. She will continue with her inhaler-Advair/Proair. She does have home oxygen. She is to maintain oxygen greater than 90%. The patient has home oxygen. Patient will follow up with pulmonology as an outpatient to further monitor. Patient with chronic renal disease. Patient had acute on chronic disease. This remained stable. Patient will follow up with nephrology as an outpatient to further address. Patient will continue with a 1500 cc per day fluid restriction. Patient will continue with Lasix as stated above. Patient likely has GERD. She will continue with Protonix 40 mg 1 pill once daily. Patient with history of DVT on chronic anti coagulation therapy. She will continue with Coumadin. Patient will need to have her INR followed by her PCP or cardiology. Further adjustment can be done by them. Patient did have some hyperkalemia. She was given Kayexalate. At discharge potassium was within normal range. Recommendation to recheck lab-BMP in 1 week to monitor progress. Losartan has been discontinued. Vital Signs/Physical Exam: Temp Pulse Resp BP Pulse Ox 97.4 F 50 18 193/73 H 98 08/17/17 12:00 08/17/17 12:00 08/17/17 12:00 08/17/17 12:00 08/17/17 12:00 General: Alert, In no apparent distress, Oriented x3, Cooperative HEENT: Atraumatic Neck: Supple Respiratory: Clear to auscultation bilaterally, Normal air movement Gastrointestinal: Normal bowel sounds, Soft and benign, Non-distended, No rebound, No guarding Musculoskeletal: No erythema, No tenderness, No warmth Integumentary: No tenderness/swelling, No erythema, No warmth, No cyanosis Neurological: Normal speech, Normal strength at 5/5 x4 extr, Normal tone, Normal affect Laboratory Data at Discharge: WBC 7.1 K/uL (4.3-10.9) 08/17/17 04:50 Hgb 12.0 g/dL (12.0-15.0) 08/17/17 04:50 Hct 36.5 % (36.0-45.0) 08/17/17 04:50 Plt Count 142 K/uL (152-406) L 08/17/17 04:50 PT 22.4 SECONDS (9.5-12.5) H 08/17/17 04:50 INR 1.89 08/17/17 04:50 APTT 45.1 SECONDS (24.3-36.9) H 08/16/17 13:35 Sodium 137 mEq/L (135-145) 08/17/17 04:50 Potassium 4.6 mEq/L (3.6-5.0) 08/17/17 09:55 BUN 80 mg/dL (6-20) H 08/17/17 04:50 Creatinine 2.87 mg/dL (0.44-1.00) H 08/17/17 04:50 Glucose 83 mg/dL (65-120) 08/17/17 04:50 Uric Acid Cancelled 08/16/17 Unknown Magnesium 2.1 mg/dL (1.8-2.5) 08/17/17 04:50 Total Bilirubin 0.8 mg/dL (0.3-1.2) 08/16/17 13:35 AST 41 IU/L (10-42) 08/16/17 13:35 ALT 26 IU/L (10-60) 08/16/17 13:35 Alkaline Phosphatase 110 IU/L (42-121) 08/16/17 13:35 Troponin I 0.04 ng/mL (<0.03) H 08/17/17 04:50 B-Natriuretic Peptide 484 pg/ml (<=100) H 08/16/17 13:35 Triglycerides 120 mg/dL (35-160) 08/17/17 04:50 Cholesterol 170 mg/dL (<200) 08/17/17 04:50 HDL Cholesterol 55 mg/dL (29-89) 08/17/17 04:50 Cholesterol/HDL Ratio 3.09 08/17/17 04:50 Lipase 43 U/L (22-51) 08/16/17 13:35 Home Medications: Fexofenadine HCl [Angelika Allergy] 180 mg PO DAILY 10/12/15 Levothyroxine [Synthroid*] 88 mcg PO [id number] 10/12/15 Vit A/Vit C/Vit E/Zinc/Copper [Preservision Areds Softgel] 1 each PO DAILY 10/11 Warfarin Sodium [Coumadin*] 2 mg PO DAILY 5 PM 10/12/15 Doxazosin [Cardura*] 4 mg PO BID 08/16/17 Albuterol Sulfate [Proair Hfa] 8.5 gm IH TID PRN #1 hfa.aer.ad 08/17/17 Amlodipine [Norvasc*] 5 mg PO DAILY #30 tab 08/17/17 Fluticasone/Salmeterol [Advair 250-50 Diskus] 1 each IH BID #1 blst.w.dev Furosemide [Lasix] 40 mg PO DAILY #30 tab 08/17/17 Hydralazine [Apresoline*] 25 mg PO TID #90 tab 08/17/17 Pantoprazole [Protonix Tab*] 40 mg PO ACB #30 tab 08/17/17 New Medications: Albuterol Sulfate [Proair Hfa] 8.5 gm IH TID PRN #1 hfa.aer.ad PRN Reason: Shortness Of Breath Amlodipine [Norvasc*] 5 mg PO DAILY #30 tab Fluticasone/Salmeterol [Advair 250-50 Diskus] 1 each IH BID #1 blst.w.dev Furosemide [Lasix] 40 mg PO DAILY #30 tab Hydralazine [Apresoline*] 25 mg PO TID #90 tab Pantoprazole [Protonix Tab*] 40 mg PO ACB #30 tab Patient Discharge Instructions: 1. Patient will need to follow up with her PCP in 1 week to follow up this hospitalization. 2. Patient presented with syncope and bradycardia. MRI unremarkable. Echocardiogram shows severe pulmonary hypertension. Patient with multiple medical issues including history of VSD repair, severe pulmonary hypertension, and CAD. Patient evaluated by Cardiology. Medications have been adjusted. At discharge patient will no longer take losartan/hydrochlorothiazide and metoprolol. New medication includes Lasix 40 mg daily and Norvasc 5 mg daily. Patient may continue with Cardura 4 mg 1 pill twice daily. Hydralazine will be adjusted to 25 mg 1 pill 3 times a day. Recommendation is for the patient to follow up with cardiology in 1 week. Cardiology plans to have an event monitor set up for the patient to further assess the bradycardia and syncope as an outpatient. Cardiology will also plan to arrange for the patient to be seen at the pulmonary hypertension clinic in [place]. Patient will likely require pulmonary hypertension medication after evaluation in [place]. 3. Patient has hypothyroidism. She will continue with her medication-Levoxyl 88 mcg daily. 4. Patient has history of COPD. She will continue with her inhaler-Advair/Proair. She does have home oxygen. She is to maintain oxygen greater than 90%. Patient will follow up with pulmonology as an outpatient to further monitor. 5. Patient with chronic renal disease. Patient will follow up with nephrology as an outpatient to further address. Patient will continue with a 1500 cc per day fluid restriction. Patient will continue with Lasix as stated above. 6. Patient likely has GERD. She will continue with Protonix 40 mg 1 pill once daily. 7. Patient with history of DVT on chronic anti coagulation therapy. She will continue with Coumadin. Patient will need to have her INR followed by her PCP or cardiology. Further adjustment can be done by them. Diet: Renal Activity: Fall precautions Followup: Jerry Raygoza MD [ACTIVE - CAN ADMIT] - 1-2 Weeks (Call for appointment) Time spent managing pt's care (in minutes): 55
[2017-08-17 13:39] LABS: CKMB Creatine Kinase MB 2.7 ng/ml (0.3-4.0)
== END 2017-08-17 12:56 | disposition home or self-care (01) | DRG 312 ==
LOC: ER 12:19 → ERHOLD 14:53 → 2ND 17:02
PROVIDERS: ADMIT Family Medicine; ATTEND Family Medicine
DX: R55 Syncope and collapse (principal); J81.0 Acute pulmonary edema; N18.4 Chronic kidney disease, stage 4 (severe); R00.1 Bradycardia, unspecified; I27.20 Pulmonary hypertension, unspecified; I12.9 Hypertensive chronic kidney disease with stage 1 through stage 4 chronic kidney disease, or unspecified chronic kidney disease; J44.9 Chronic obstructive pulmonary disease, unspecified; E87.5 Hyperkalemia; E03.9 Hypothyroidism, unspecified; Z88.2 Allergy status to sulfonamides; Z88.7 Allergy status to serum and vaccine; Z86.718 Personal history of other venous thrombosis and embolism; Z79.01 Long term (current) use of anticoagulants
CPT/HCPCS: 36415; 70450; 70551; 71045; 71046; 76770; 80048; 80061; 80076; 81003; 81015; 82040; 82043; 82306; 82330; 82550; 82553; 82570; 83690; 83735; 83880; 83970; 84100; 84132; 84156; 84439; 84443; 84484; 84550; 85025; 85610; 85730; 87077; 87086; 87088; 87186; 93005; 93306; 93880; 94640; 96374; 96375; 99285; J1610; J1940; J2405; J7605

== ENCOUNTER 2020-01-14 15:12 | Emergency (ER) | payer OTHER, BC ==
--- OUTSIDE RECORDS SUMMARY | 2020-01-14 15:15 | XMS REPORT | Continuity of Care Document ---
:1945 Author Organization [facility] t Address [address] [place] [address] Care Team Providers Name Role Phone Raymond NORWOOD, B Primary Care Physician Edwin NUNO Attending Clinician Edelmira NORWOOD Attending Clinician Payers Payer Name Policy Type Policy Effective Date Expiration Date Sour ce Number MEDICAREMEDICARE PART [id number] 2012 MD Brenden Davidson AND 00:00:00 [id number] 2013-P [phone] TON, [place] BLUE [id number] 2012 MD Romeo calzada [facility] PPO 4 00:00:00 [id number] Problems Condition Condition Condition Status Onset Resolution Last Treating Co mments Source Name Details Category Date Date Treatment Clinician Date Mammograph Mammograph Disease Active M D y abnormal y abnormal 3-12 An derso 00:00: n 00 SOB SOB Disease Active [facility] (shortness (shortness 6-04 Assessmen Methodi of breath) of breath) 00:00: t & Plan: st 00 Uses oxygen 2 LPM and doing well Sleep Sleep Disease Active [place] apnea, apnea, 6-04 Methodi obstructiv obstructiv 00:00: st e e 00 GERD GERD Disease Active [facility] (gastroeso (gastroeso 604 Assessmen Methodi phageal phageal 00:00: t & Plan: st reflux reflux 00 Re-start disease) disease) reflux medsPatie nt advised to Follow Aspiratio n precautio ns Elevate head of the bed by 4-5 inchesWai t at least 3 hours between meals and laying down SSS (sick SSS (sick Disease Active Reanna ston sinus sinus 09-13 Methodi syndrome) syndrome) 00:00: st 00 Stage 3 Stage 3 Disease Active [place] chronic chronic 09-06 Methodi kidney kidney 00:00: st disease disease 00 Urinary Urinary Disease Active [place] tract tract 09-06 Methodi infection infection 00:00: st Essential Essential Disease Active Jonnathan Reanna ston hypertensi hypertensi 09-06 Assessmen Methodi on on 00:00: t & Plan: 00 160/60 mmhgManua raul checked right arm f/u with her pcp Bradycardi Bradycardi Disease Active H isaura a a 08-17 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 Copd teaching by Seymour and teach her adequate technique Patient advised to use adviar twice a day and rinse her mouth after each use History of History of Disease Active H isaura deep deep 05 Methodi venous venous 00:00: st thrombosis thrombosis 00 Hyperkalem Hyperkalem Disease Active H isaura ia ia 05 Methodi 00:00: st 00 Pulmonary Pulmonary Disease Active Reanna ston edema edema 08-17 Methodi 00:00: st Pulmonary Pulmonary Disease Active Jonnathan Forte ston hypertensi hypertensi 4-05 Assessmen Methodi on on 00:00: t & Plan: st 00 No gradient across pulmonary vasculatu reGood cardiac outputs/p pacemaker placement No need for PH - pulmonary vasodilat or therapy Syncope Syncope Disease Active [place] 08-17 Methodi 00:00: st 00 Elevated Elevated Disease Active [place] internatio internatio 10-12 Me thodi nal nal 00:00: st normalized normalized 00 ratio ratio (INR) (INR) Bradycardi Bradycardi Disease Active Overview : MD davidson a 1- s/p Anderso 00:00: pacemaker n 00 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 Dependence Dependence Disease Active M D on on Anderso nocturnal nocturnal n oxygen oxygen therapy therapy Chronic Chronic Disease Active kidney kidney Anderso disease disease n Hyperlipid Hyperlipid Disease Active M D emia emia Anderso n Hypertensi Hypertensi Disease Active M D on on Anderso n Hypothyroi Hypothyroi Disease Active M D dism dism Anderso n Depressive Depressive Disease Active M D disorder disorder Gavin o n Pulmonary Pulmonary Disease Active Overview: embolism embolism on Gavin o chronic n coumadin Pulmonary Pulmonary Disease Active embolism embolism Gavin o on on n long-term long-term anticoagul anticoagul ation ation therapy therapy Allergies, Adverse Reactions, Alerts Allergy Allergy Status Severity Reaction(s) Onset Inactive Treating Comm ents Source Name Type Date Date Clinician Tetanus Propensi Active Other (See Reanna ston Immune ty to Comments) 09-13 Methodi Globulin adverse 00:00: st reaction 00 s to drug Codeine Propensi Active [place] ty to 09-06 Methodi adverse 00:00: st reaction 00 s to drug Meperidi Propensi Active [place] ty to 25 Methodi adverse 00:00: st reaction 00 s to drug Sulfa Propensi Active [place] (Sulfona ty to 09-06 Methodi mide adverse 00:00: st Antibiot reaction 00 ics) s to drug Family History Family Member Diagnosis Comments Start Date Stop Date Source Natural father Hypertension [place] [employer] Natural father Mesothelioma Romeo son Natural mother Hypertension [place] [employer] Other Pancreatic cancer MD Chaparro you Family member Breast cancer MD Walters son Family member Ovarian cancer MD Chaparro you Social History Social Habit Start Date Stop Date Quantity Comments Source History [facility] MD Wilcox Alcohol Std Drinks History [facility] MD Wilcox Alcohol Binge Sex Assigned At F MD Alonso on Tobacco use and 2019-07-25 2019-07-25 Never used MD Alonso on exposure 00:00:00 00:00:00 Alcohol intake 2019-07-25 2019-07-25 Lifetime MD Michelle n 00:00:00 00:00:00 non-drinker (finding) History [facility] 2019-07-25 2019-07-25 1 MD Wilcox Alcohol Frequency 00:00:00 00:00:00 Smoking Status Start Date Stop Date Source Never smoker MD Wilcox Medications Ordered Filled Start Stop Current Ordering Indication Dosage Frequency Signature Comments Components Source Medication Medication Date Date Medication? Clinician (SIG) Name Name doxazosin 2020-0 Yes 4mg Take 4 mg MD (CARDURA) 4 3-12 by mouth Chaparro rso mg tablet 19:13: twice n 09 daily. fluticasone 2020-0 Yes 2{puff} Inhale 2 MD propionate- 3-12 puffs by Chaparro rso salmeterol 19:13: mouth. n (ADVAIR) 09 250 mcg-50 mcg/inhalat ion diskus inhaler furosemide 2020-0 Yes 40mg Take 40 mg M D (LASIX) 40 3-12 by mouth. [place] rso mg tablet 19:13: n 09 levothyroxi 2020-0 Yes 88ug Take 88 MD ne 3-12 mcg by Anderso (SYNTHROID, 19:13: mouth. n LEVOTHROID) 09 88 mcg tablet TART FERNANDEZ 2020-0 Yes 1200mg Take 1,200 MD EXTRACT 3-12 mg by Anderso ORAL 19:13: mouth. n 08 cholecalcif 2020-0 Yes 11032[i Take MD johana, 3-12 U] 15,000 Anderso vitamin D3, 19:13: Int'l n (VITAMIN D3 08 Units by ORAL) mouth every 30 (thirty) days. vit A/vit 2020-0 Yes 1{tbl} Take 1 MD C/vit 3-12 tablet by Anderso E/zinc/tiffanie 19:13: mouth. n er 08 (PRESERVISI ON AREDS ORAL) amLODIPine 2020-0 Yes 5mg Take 5 mg MD (NORVASC) 5 3-12 by mouth. And erso mg tablet 19:13: n 08 calcitriol 2020-0 Yes .25ug Take 0.25 M D (ROCALTROL) 3-12 mcg by Gavin o 0.25 mcg 19:13: mouth 2 n capsule 08 (two) times a week MTH. citalopram 2020-0 Yes MD (CeleXA) 10 3-06 Anderso mg tablet 00:00: n 00 famotidine 2020-0 Yes MD (PEPCID) 20 3-06 Anderso mg tablet 00:00: n 00 warfarin 2020-0 Yes 2{tbl} Take 2 MD (COUMADIN) 2-12 tablets by And erso 1 mg tablet 00:00: mouth n 00 daily. hydrALAZINE 2019-0 Yes 1{tbl} Take 1 MD (APRESOLINE 2-03 tablet by And erso ) 50 mg 00:00: mouth n tablet 00 twice daily. citalopram 2018-0 Yes 10mg QD Take 10 mg [place] (CeleXA) 20 6-04 by mouth Meth jason MG tablet 14:38: daily. st 58 calcitriol 2017-0 Yes .25ug QD Take 0.25 [place] (ROCALTROL) 6-04 mcg by Method i 0.25 MCG 14:38: mouth st capsule 58 daily. cholecalcif 2018-0 Yes 20030F Q30D Take [place] johana, 6-04 50,000 Methodi vitamin D3, 14:38: Units by st (VITAMIN 58 mouth D3) 1,000 every 30 unit tablet (thirty) days. hydrALAZINE 2018-0 Yes 25mg Q.[id number] Take 25 mg [place] (APRESOLINE 6-04 [id number] by mouth 3 Methodi ) 25 MG 14:38: 3D (three) st tablet 58 times a day. amLODIPine 2018-0 Yes 5mg Q.5D Take 5 mg [place] (NORVASC) 5 6-04 by mouth 2 Me thodi mg tablet 14:38: (two) st 58 times a day. furosemide Yes 40mg Take 40 mg [place] (LASIX) 40 6-04 by mouth Metho di mg tablet 14:38: as needed. st 58 For swelling levothyroxi Yes 88ug QD Take 88 Reanna ston ne 6-04 mcg by Methodi (SYNTHROID, 14:38: mouth st LEVOXYL) 88 58 every mcg tablet morning. albuterol Yes 2{puff} Q.[id number] Inhale 2 [place] (PROAIR 6-04 [id number] puffs 3 Met hodi HFA,PROVENT 14:38: 3D (three) st [place] 58 times a HFA,VENTOLI day. N HFA) 90 mcg/actuati on inhaler warfarin Yes 2mg QD Take 2 mg [place] (COUMADIN) 6-04 by mouth Metho di 2 MG tablet 14:38: daily. st 58 fluticasone Yes 2{puff} QD Inhale 2 [place] -salmeterol 6-04 puffs Methodi (ADVAIR) 14:38: daily. st 250-50 58 mcg/dose DISKUS pantoprazol Yes BEFORE [place] e 4-05 BREAKFAST Methodi (PROTONIX) 00:00: st 40 MG EC 00 tablet warfarin 0 Yes DAILY AT [place] (COUMADIN) 5-30 1700 Methodi 2 MG tablet 00:00: st 00 Vital Signs Vital Name Observation Time Observation Value Comments Source Body height 2019-07-25 17:20:00 157.5 cm MD Romeo calzada Body weight 2019-07-25 17:20:00 59.6 kg MD Romeo calzada BMI 2019-07-25 17:20:00 24.03 kg/m2 MD Romeo calzada Systolic blood pressure 2019-07-25 17:12:08 167 mm[Hg] MD Wilcox Diastolic blood pressure 2019-07-25 17:12:08 61 mm[Hg] MD Wilcox Heart rate 2019-07-25 17:12:08 71 /min MD Romeo calzada Body temperature 2019-07-25 17:12:08 36.5 [place] MD Latisha burkett Respiratory rate 2019-07-25 17:12:08 18 /min MD Latisha burkett Procedures Procedure Date / Time Performed Performing Clinician [facility] e US BREAST COMPLETE BILATERAL 2019-07-30 18:21:29 Risa Pineda MD US CHEST 2019-07-30 18:21:29 Risa Pineda MD MAMMO DIGITAL DIAGNOSTIC 2019-07-30 17:11:42 Risa Pineda MD BILATERAL W ROBINSON OSI MAMMOGRAPHY UNILATERAL 2019-07-03 21:02:17 Annabella Hickey MD LEFT OSI MAMMO BILATERAL 2019-06-07 21:02:28 Annabella Hickey MD rsgisella Plan of Care Planned Activity Planned Date Details Comments Source Future Scheduled 2020-02-13 INFLUENZA VACCINE [place] [facility] 00:00:00 [code = INFLUENZA VACCINE] Future Scheduled 2012 65+ PNEUMOCOCCAL [place] [facility] 00:00:00 VACCINE (1 of 2 - PCV13) [code = 65+ PNEUMOCOCCAL VACCINE (1 of 2 - PCV13)] Future Scheduled 1997 BREAST CANCER [place] [facility] Test 00:00:00 SCREENING [code = BREAST CANCER SCREENING] Future Scheduled 1997 COLONOSCOPY SCREENING [place] [facility] Test 00:00:00 [code = COLONOSCOPY SCREENING] Future Scheduled 1997 SHINGLES VACCINES (#1) [place] [facility] Test 00:00:00 [code = SHINGLES VACCINES (#1)] Results Test Description Test Time Test Comments Results Result Comments Source Mammography Digital Diagnostic Bilateral with Robinson 2019-07-14 7 18:27:45 Test Item Value Reference Range Interpretation Comme nts IMP (test code = IMP) 1: Fine pleomorphic calcifications in the left breast outer hemisphere at 3o'clock located 7 centimeters from the nipple are suspicious. Stereotacticbiopsy is recommended. 2: Coarse heterogeneous calcifications in the left breast upper outer quadrantat 2 o'clock located 11 centimeters from the nipple are suspicious. Stereotacticbiopsy is recommended. 3: Benign appearing calcifications in both breasts are benign. BI-RADS Category 4:Suspicious Abnormality The above recommendations were emailed to Risa Pineda on 07/30/2019. Theabove recommendations were also discussed with Ms. Rosario by Dr. Sandoval at thetime of her examination and all questions were answered. PXN (test code = PXN) Interface, Radiology Results In - 07/30/2019 1:27 PM CDTCLINICAL INDICATION:Patient is a 74 year old female and is seen for additional evaluation requestedfrom prior study MAMMO DIGITAL DIAGNOSTIC BILATERAL W TOMODigital Mammogram evaluated with Computer Aided Detection (CAD). COMPARISON:The present examination has been compared to prior imaging studies performed ata outside location on 12/31/2009, 09/02/2014, 06/07/2019 and 07/03/2019. FINDINGS:The breasts are heterogeneously dense, which may obscure small masses. 1: There are fine pleomorphic calcifications measuring 1.6 x 1 x 0.7centimeters in the left breast outer hemisphere at 3 o'clock located 7centimeters from the nipple. 2: There are coarse heterogeneous calcifications measuring 0.2 x 0.2 x 0.2centimeters in the left breast upper outer quadrant at 2 o'clock located 11centimeters from the nipple. 3: There are benign appearing calcifications with scattered distribution inboth breasts. Tomosynthesis performed in CC and MLO projections. IMPRESSION:1: Fine pleomorphic calcifications in the left breast outer hemisphere at 3o'clock located 7 centimeters from the nipple are suspicious. Stereotacticbiopsy is recommended. 2: Coarse heterogeneous calcifications in the left breast upper outer quadrantat 2 o'clock located 11 centimeters from the nipple are suspicious. Stereotacticbiopsy is recommended. 3: Benign appearing calcifications in both breasts are benign. BI-RADS Category 4:Suspicious Abnormality The above recommendations were emailed to Risa Pineda on 07/30/2019. Theabove recommendations were also discussed with Ms. Rosario by Dr. Sandoval at thetime of her examination and all questions were answered. Lab Interpretation (test code = Abnormal 50260-4) MD WilcoxUS Breast Complete - [id number] 18:25:46There is no evidence of malignancy. Left breast stereotactic biopsies have beenrecommended. Please r efer to patient's same day diagnostic mammogram report foradditional details. BI-RADS Category 4:Suspicious: Left breast stereotactic biopsies have been recommended Interface, Radiology Results In - 07/30/2019 1:25 PM CDTCLINICAL INDICATION:Patient is a 74 year old female and is seen for breast cancer FILMS COMPAREDThe present examination has been compared to a prior imaging study performed [facility] on 07/30/2019. Images were obtained in multiple scanning planes. Real-time sonographic imaging of both breasts (including all 4 quadrants andretroareolar region) was performed. Real- time sonographic imaging of the leftregional maria luz basins including ultrasound of the chest/mediastinum to evaluatethe axillary (level I,II,III) and internal mammary regions was performed. No suspicious mass is identified in either breast. Specifically, no sonographiccorrelate is identified for the suspicious calcifications seen in the leftbreast. Left Regional Maria Luz Basins: No suspi cious axillary levels I, II, III(infraclavicular) or internal mammary lymph node is identified. IMPRESSION:There is no evidence of malignancy. Left breast stereotactic biopsies have beenrecommended. Please refer to patient's same day diagnostic mammogram report foradditional details. BI-RADS Category4:Suspicious: Left breast stereotactic biopsies have been recommendedMD [facility] 2019-07-30 18:25:46There is no evidence of malignancy. Left breast stereotactic biopsies have beenrecommended. Please refer to patient's same day diagnostic mammogram report foradditional details. BI-RADS Category 4:Suspicious: Left breast stereotactic biopsies have been recommended Interface, Radiology Results In - 07/30/2019 1:25 PM CDTCLINICAL INDICATION:Patient is a 74 year old female and is seen for breast cancer FILMS COMPAREDThe present examination has been compared to a prior imaging study performed [facility] on 07/30/2019. Images were obtained in multiple scanning planes. Real- time sonographic imaging of both breasts (including all 4 quadrants andretroareolar region) was performed. Real-time sonographic imaging of the leftregional maria luz basins including ultrasound of the chest/mediastinum to evaluatethe axillary (level I,II,III) and internal mammary regions was performe d. No suspicious mass is identified in either breast. Specifically, no sonographiccorrelate is identified for the suspicious calcifications seen in the leftbreast. Left Regional Maria Luz Basins: No suspicious axillary levels I, II, III(infraclavicular) or internal mammary lymph node is identified. IMPRE SSION:There is no evidence of malignancy. Left breast stereotactic biopsies have beenrecommended. Please refer to patient's same day diagnostic mammogram report foradditional details. BI-RADS Category4:Suspicious: Left breast stereotactic biopsies have been recommendedMD Angela [id number] 20:02:41For comparison only. No interpretation requested.MD Angela MAMMOGRAPHY UNILATERAL [id number] 20:02:23For comparison only. No interpretation requested.MD Wilcox
--- OUTSIDE RECORDS SUMMARY | 2020-01-14 15:15 | XMS REPORT | Clinical Summary ---
:1945 Author Organization [facility] Address [address] [place] [address] Care Team Providers Name Role Phone Isaac Andrade MD Primary Care Provider Allergies Active Allergy Reactions Severity Noted Date Comments Codeine 09/06/2017 Meperidine 09/06/2017 Sulfa (Sulfonamide Antibiotics) 8 Tetanus Immune Globulin Other (See Comments) 8 Medications Medication Sig Dispensed Refills Start Date End Date Status citalopram (CeleXA) 20 Take 10 mg by 0 Active MG tablet mouth daily. calcitriol (ROCALTROL) Take 0.25 mcg by 0 Active 0.25 MCG capsule mouth daily. cholecalciferol, Take 50,000 Units 0 Active vitamin D3, (VITAMIN by mouth every 30 D3) 1,000 unit tablet (thirty) days. hydrALAZINE Take 25 mg by 0 Acti ve (APRESOLINE) 25 MG mouth 3 (three) tablet times a day. amLODIPine (NORVASC) 5 Take 5 mg by mouth 0 Active mg tablet 2 (two) times a day. furosemide (LASIX) 40 Take 40 mg by 0 Active mg tablet mouth as needed. For swelling levothyroxine Take 88 mcg by 0 A ctive (SYNTHROID, LEVOXYL) mouth every 88 mcg tablet morning. albuterol (PROAIR Inhale 2 puffs 3 0 Active HFA,PROVENTIL (three) times a HFA,VENTOLIN HFA) 90 day. mcg/actuation inhaler warfarin (COUMADIN) 2 Take 2 mg by mouth 0 Active MG tablet daily. fluticasone-salmeterol Inhale 2 puffs 0 Active (ADVAIR) 250-50 daily. mcg/dose DISKUS warfarin (COUMADIN) 2 DAILY AT 1700 0 10/12/2015 Active MG tablet pantoprazole BEFORE BREAKFAST 0 08/17/2017 Active (PROTONIX) 40 MG EC tablet Active Problems Problem Noted Date SOB (shortness of breath) 10/16/2017 Last Assessment & Plan: Uses oxygen 2 LPM and doing well Sleep apnea, obstructive 10/16/2017 GERD (gastroesophageal reflux disease) 10/16/2017 Last Assessment & Plan: Re-start reflux meds Patient advised to Follow Aspiration pre cautions Elevate head of the bed by 4-5 inches Wait at least 3 hours between meals and laying down SSS (sick sinus syndrome) 09/13/2017 Stage 3 chronic kidney disease 09/06/2017 Urinary tract infection 09/06/2017 Essential hypertension 09/06/2017 Last Assessment & Plan: 160/60 mmhg Manually checked right arm f/u with her pcp Bradycardia 08/17/2017 care home current use of anticoagulant therapy 018 Last Assessment & Plan: Warfarin 2 mg daily No IVC filter Hx PE Chronic kidney disease 08/17/2017 Chronic obstructive pulmonary disease 08/17/2017 Last Assessment & Plan: COPD is unchanged. Discussed monitoring symptoms and use of quick-relief medications and contacting us early in the course of exacerbations. Medication changes per orders. Copd teaching by Seymour and teach her adequate technique Patient advised to use adviar twice a da y and rinse her mouth after each use History of deep venous thrombosis 08/17/2017 Hyperkalemia 08/17/2017 Hypothyroidism 08/17/2017 Pulmonary edema 08/17/2017 Pulmonary hypertension 08/17/2017 Last Assessment & Plan: No gradient across pulmonary vasculature Good cardiac output s/p pacemaker placement No need for PH - pulmonary vasodilator t herapy Syncope 08/17/2017 Elevated international normalized ratio (INR) 10/13/19 16 Family History Medical History Relation Name Comments Hypertension Father Hypertension Mother Relation Name Status Comments Father Mother Social History Tobacco Use Types Packs/Day Years Used Date Never Smoker Smokeless Tobacco: Never Used Alcohol Use Drinks/Week oz/Week Comments No Sex Assigned at Date Recorded Not on file Job Start Date Occupation Industry Not on file Not on file Not on file Travel History Travel Start Travel End No recent travel history available. Last Filed Vital Signs Not on file Plan of Treatment Health Maintenance Due Date Last Done Comments BREAST CANCER SCREENING 1997 COLONOSCOPY SCREENING 1997 SHINGLES VACCINES (#1) 1997 65+ PNEUMOCOCCAL VACCINE (1 of 2 - PCV13) 2012 INFLUENZA VACCINE 02/13/2020 Implants Implanted Type Area Trauma Therapist Device Shelf Model / Identifier Expiration Serial / Date Lot Accolade Mri Dr Pacemaker - [id number] - [id number] Cardiac N/A: [employer] [place] 04/05/2019 [id number] / Implanted: Qty: 1 on 09/13/2017 by Yamil Bowling Jr., M D at [facility] Pacemaker N/A [employer]- CRM [id number] / Generators [id number] Ingevity Mri Pacing Lead 45cm - [id number] - [id number] Cardiac Pacing N/A: [place] [place] 07/11/2019 7740 45 / Implanted: Qty: 1 on 09/13/2017 by Yamil Bowling Jr., M D at [facility] Leads or N/A [employer]- CRM [id number] / Electrodes or [id number] Accessories 52cm [facility] Active Fixation Pacing Lead - [id number] - [id number] Cardiac Pacing N/A: [employer] [place] 12/08/2018 7741 / Implanted: Qty: 1 on 09/13/2017 by Yamil Bowling Jr., M D at [facility] Leads or N/A [employer]- CRM [id number] / Electrodes or [id number] Accessories Results Not on fileafter 01/13/2019 Insurance Payer Benefit Plan / Subscriber ID Effective Dates Phone Addre ss Type Group MEDICARE MEDICARE PART A xxxxxxxxxx 2012-Present [place], [place] Medicare AND B BCBS BCBS PAR/TRAD xxxxxxxxxxxx 2012-Present Indemnity PLAN Guarantor Name Account Type Relation to Date of Phone Billing Patient Address Jaymie Dill Personal/Family Self 1945 [address] (Home) [place] [phone] [place] [address] (Work) Advance Directives For more information, please contact: [phone] Type Date Recorded Patient Tractor Trailer Moving Van Driver Explanati on Advance Directives, Living Will 09/13/2017 5:38 AM and Medical Power of Regulator Operator Advance Directives, Living Will 09/13/2017 5:39 AM and Medical Power of Regulator Operator
--- NOTE | 2020-01-14 16:32 | RAD REPORT ---
EXAM DESCRIPTION: RAD - Chest Single View - 01/14/2020 4:26 pm CLINICAL HISTORY: SOB Chest pain. COMPARISON: Chest Pa And Lat (2 Views) dated 12/21/2018; Chest Pa And Lat (2 Views) dated 08/17/2017; Ch est Single View dated 08/16/2017; Chest Pa And Lat (2 Views) dated 02/29/2016 FINDINGS: Portable technique limits examination quality. Moderate bilateral pulmonary opacities noted likely representing pulmonary edema. Small bilateral ple ural effusions. The heart is mildly enlarged in size with multilead pacer device present. Sternotomy wires present. IMPRESSION: Moderate CHF.
[2020-01-14 16:35] LABS: Absolute Lymphocytes (CBC) 1.7 K/uL (0.7-4.9); Basophils % 1.2 % (0-1.3); Hematocrit 35.1 % (36.0-45.0); Lymphocytes % 24.5 % (15.3-44.8); MPV 10.1 fL (7.6-11.3); RBC Red Blood Cell Count 4.27 M/uL (3.86-4.86)
[2020-01-14] MEDS ORDERED: FUROSEMIDE 40 MG/4 ML VIAL ONE (16:35)
[2020-01-14] MEDS ORDERED: ALBUTEROL 2.5 MG/3 ML NEB SOL ONE (16:35)
[2020-01-14 16:36] LABS: Protime INR 1.43
[2020-01-14 16:48] LABS: ALT/SGPT 16 U/L (12-78); AST/SGOT 27 U/L (15-37); Alkaline Phosphatase 122 U/L (45-117); BUN Blood Urea Nitrogen 29 mg/dL (7-18); Bicarbonate 27 mmol/L (21-32); Bilirubin Direct 0.2 mg/dL (0-0.2); Bilirubin Total 0.6 mg/dL (0.2-1.0); Glucose Level 87 mg/dL (74-106); Magnesium 2.1 mg/dL (1.8-2.4); NT PRO-BNP 2677 pg/mL (<125); Potassium 4.3 mmol/L (3.5-5.1); Protein, Total 7.8 g/dL (6.4-8.2); Sodium Level 142 mmol/L (136-145); Troponin (Emerg Dept Use Only) < 0.02 ng/mL (0.0-0.045)
--- NOTE | 2020-01-14 17:50 | EDPHYS ---
Physician Documentation [facility] Name: Jaymie Dill Age: 74 yrs Sex: Female : 1945 Arrival Date: 01/14/2020 Time: 15:16 Bed 17 Private MD: ED Physician Houston Garcia HPI: 01/13 16:39 This 74 yrs old Female presents to ER via Ambulatory with complaints of pm1 Shortness of breath. 16:39 The patient has shortness of breath at rest, with light activity. Onset: The pm1 symptoms/episode began/occurred 1 week(s) ago, and became worse 2 day(s) ago. Duration: The symptoms are continuous. The patient's shortness of breath is aggravated by light activity, is alleviated by nothing. Associated signs and symptoms: Pertinent positives: non-productive cough, Fever last night. No fever today, Pertinent negatives: chest pain. Severity of symptoms: in the emergency department the symptoms are worse. The patient has not recently seen a physician, Contacted PCP, Dr. Raza, by phone this AM and instructed to report to the ER for evaluation. Patient has been having swelling to lower extremities for the past 1 month and it is better now. Patient takes Lasix 40 mg as needed. Last dosage of Lasix was 2 days ago. Historical: - Allergies: 15:40 Codeine; iw 15:40 Demerol; iw 15:40 Sulfa (Sulfonamide Antibiotics); iw 15:40 Tetanus Vaccines \T\ Toxoid; iw - Home Meds: 15:40 doxazosin 4 mg oral tab twice a day [Active]; amlodipine 5 mg tab twice a day [Active]; iw citalopram 10 mg tab 1 tab once daily [Active]; hydralazine 50 mg oral tab 2 times per day [Active]; levothyroxine 88 mcg tab 1 tab once daily [Active]; famotidine 20 mg Oral tab 1 tab once daily [Active]; warfarin 2 mg oral tab once daily [Active]; Advair Diskus 250-50 mcg/dose Inhl dsdv 1 puff 2 times per day [Active]; Vitamin D Oral daily [Active]; Lasix 40 mg Oral tab 1 tab once daily [Active]; Tart Aguilar oral daily [Active]; PreserVision AREDS oral oral daily [Active]; - PMHx: 15:40 ESRD; Heart Murmur; Hypertension; Pseudocholinesterase deficiency; Ventricular septal iw defect; - PSHx: 15:40 open heart surgery; Cholecystectomy; iw ROS: 16:39 Constitutional: Negative for fever, chills, and weight loss, Cardiovascular: Negative pm1 for chest pain, palpitations, and edema. 16:39 Abdomen/GI: Negative for abdominal pain, nausea, vomiting, diarrhea, and constipation, Back: Negative for injury and pain. 16:39 MS/Extremity: Negative for injury and deformity, Skin: Negative for injury, rash, and discoloration, Neuro: Negative for headache, weakness, numbness, tingling, and seizure. 16:39 ENT: Positive for hoarseness, Negative for ear pain, sinus congestion, sinus pain, sore throat, difficulty swallowing, difficulty handling secretions. 16:39 Respiratory: Positive for cough, with no reported sputum, shortness of breath, Negative for wheezing. Exam: 16:39 Constitutional: This is a well developed, well nourished patient who is awake, alert, pm1 and in no acute distress. Head/Face: Normocephalic, atraumatic. 16:39 Chest/axilla: Normal chest wall appearance and motion. Nontender with no deformity. No lesions are appreciated. 16:39 Back: No spinal tenderness. No costovertebral tenderness. Full range of motion. Skin: Warm, dry with normal turgor. Normal color with no rashes, no lesions, and no evidence of cellulitis. MS/ Extremity: Pulses equal, no cyanosis. Neurovascular intact. Full, normal range of motion. 16:39 Cardiovascular: Rate: normal, Rhythm: regular, Pulses: no pulse deficits are appreciated, Edema: pedal edema, that is mild. 16:39 Respiratory: the patient does not display signs of respiratory distress, Breath sounds: decreased breath sounds, are located in both bases. 16:39 Neuro: Exam negative for acute changes, Orientation: is normal, Mentation: is normal, Motor: is normal, moves all fours. Vital Signs: 15:32 BP 171 / 40; Pulse 64; Resp 22 S; Temp 98.3; Pulse Ox 80% on R/A; iw 16:21 Pulse Ox 98% on 2 lpm NC; iw 16:33 BP 100 / 65; Pulse 61; Resp 18 S; Pulse Ox 100% on Nebulizer Mask; iw 17:21 BP 175 / 50; Pulse 66; Resp 20 S; Pulse Ox 85% on 2 lpm NC; iw MDM: 15:28 Patient medically screened. pm1 17:43 Data reviewed: vital signs. Counseling: I had a detailed discussion with the patient pm1 and/or guardian regarding: the historical points, exam findings, and any diagnostic results supporting the discharge/admit diagnosis, lab results, the need for further work-up and treatment in the hospital. 17:43 Refusal of service: The patient/guardian displays adequate decision making capability pm1 and despite a detailed discussion of alternatives, benefits, risks, and consequences refuses: Admission to the hospital for further work-up and treatment, After multiple discussions on separate occasions, patient does not want to stay in the hospital. Patient is concerned about her 96 year old mother and her is going out of town. 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 01/13 15:37 Order name: Basic Metabolic Panel; Complete Time: 16:50 pm01/13 15:37 Order name: CBC with Diff; Complete Time: 16:46 pm1 01/13 15:37 Order name: LFT's; Complete Time: 16:50 pm1 01/13 15:37 Order name: Magnesium; Complete Time: 16:50 pm01/13 15:37 Order name: NT PRO-BNP; Complete Time: 16:50 pm1 01/13 15:37 Order name: PT-INR; Complete Time: 16:46 pm01/13 15:37 Order name: Troponin (emerg Dept Use Only); Complete Time: 16:50 pm01/13 15:37 Order name: Flu; Complete Time: 16:50 pm1 01/13 15:37 Order name: Strep; Complete Time: 16:50 pm1 01/13 15:37 Order name: COVID-19 pm01/13 15:37 Order name: Blood Culture Adult (2) pm1 01/13 15:37 Order name: Lactate; Complete Time: 16:50 pm1 01/13 15:37 Order name: Procalcitonin; Complete Time: 17:34 pm01/13 16:50 Order name: Throat Culture EDMS 01/13 15:37 Order name: XRAY Chest (1 view); Complete Time: 16:37 pm1 01/13 15:37 Order name: EKG; Complete Time: 15:38 pm1 01/13 15:37 Order name: Cardiac monitoring; Complete Time: 16:22 pm1 01/13 15:37 Order name: EKG - Nurse/Tech; Complete Time: 16:20 pm1 01/13 15:37 Order name: IV Saline Lock; Complete Time: 16:20 pm1 01/13 15:37 Order name: Labs collected and sent; Complete Time: 16:20 pm1 01/13 15:37 Order name: O2 Per Protocol; Complete Time: 16:20 pm1 01/13 15:37 Order name: O2 Sat Monitoring; Complete Time: 16:20 pm1 Administered Medications: 16:32 Drug: Lasix 40 mg Route: IVP; Site: right antecubital; iw 17:28 Follow up: Response: No adverse reaction iw 16:32 Drug: Albuterol 2.5 mg Route: Inhalation; Disposition: 18:41 Co-signature as Attending Physician, Houston Garcia MD. rn Disposition: 01/14/20 17:52 Patient has left against medical advice. Impression: Unspecified combined systolic (congestive) and diastolic (congestive) heart failure, Shortness of breath, Volume overload. - Patients states they are going to Home. - Condition is Stable. - Discharge Instructions: Heart Failure, Shortness of Breath. Follow up: Emergency Department; When: As needed; Reason: Worsening of condition. Follow up: Private Physician; When: Upon discharge from the Emergency Department; Reason: Recheck today's complaints, Continuance of care, Re-evaluation by your physician. Follow up: Jerry Raygoza MD; When: Upon discharge from the Emergency Department; Reason: Recheck today's complaints, Continuance of care, Re-evaluation by your physician. Follow up: Latisha Raza MD; When: Upon discharge from the Emergency Department; Reason: Recheck today's complaints, Continuance of care, Re-evaluation by your physician. - Problem is new. - Symptoms have improved. Signatures: Dispatcher [employer] [facility] Unique Gilmore RN RN iw Nieto, Roman, MD MD rn Marinas, Patrick, NP TORCH SOLDERER pm1 Corrections: (The following items were deleted from the chart) 17:50 17:50 01/14/2020 17:50 Discharged to Home. Impression: Unspecified combined systolic pm1 (congestive) and diastolic (congestive) heart failureVolume overload; Shortness of breath. Condition is Undetermined. Forms are Medication Reconciliation Form, Thank You Letter, Antibiotic Education, Prescription Opioid Use. Follow up: Private Physician; When: Upon discharge from the Emergency Department; Reason: Recheck today's complaints, Continuance of care, Re-evaluation by your physician. Follow up: Emergency Department; When: As needed; Reason: Worsening of condition. Problem is new. Symptoms have improved. pm1 18:23 17:52 01/14/2020 17:52 Patients has left against medical advice. Impression: iw Unspecified combined systolic (congestive) and diastolic (congestive) heart failure; Shortness of breath; Volume overload. Patient states they are going to Home. Condition is Stable. Follow up: Emergency Department; When: As needed; Reason: Worsening of condition. Follow up: Private Physician; When: Upon discharge from the Emergency Department; Reason: Recheck today's complaints, Continuance of care, Re-evaluation by your physician. Follow up: Jerry Raygoza; When: Upon discharge from the Emergency Department; Reason: Recheck today's complaints, Continuance of care, Re-evaluation by your physician. Follow up: Latisha Raza; When: Upon discharge from the Emergency Department; Reason: Recheck today's complaints, Continuance of care, Re-evaluation by your physician. Problem is new. Symptoms have improved. pm1
--- NOTE | 2020-01-14 17:50 | ER ---
Nurse's Notes [facility] Name: Jaymie Dill Age: 74 yrs Sex: Female : 1945 Arrival Date: 01/14/2020 Time: 15:16 Bed 17 Private MD: Diagnosis: Unspecified combined systolic (congestive) and diastolic (congestive) heart failure;Shortness of breath;Volume overload Presentation: 01/13 15:32 Chief complaint: Patient states: increasing SOB and swelling in legs and feet, hx of iw pulmonary stenosis, uses home O2 at night but has been having to use it during the day. Ebola Screen: Patient negative for fever greater than or equal to 101.5 degrees Fahrenheit, and additional compatible Ebola Virus Disease symptoms Patient denies exposure to infectious person. Patient denies travel to an Ebola-affected area in the 21 days before illness onset. No symptoms or risks identified at this time. Initial Sepsis Screen: Does the patient meet any 2 criteria? No. Patient's initial sepsis screen is negative. Does the patient have a suspected source of infection? No. Patient's initial sepsis screen is negative. Risk Assessment: Do you want to hurt yourself or someone else? Patient reports no desire to harm self or others. 15:32 Method Of Arrival: Ambulatory iw 15:32 Acuity: SALUD 3 iw Triage Assessment: 16:00 General: Appears in no apparent distress. Behavior is calm, cooperative. iw Historical: - Allergies: 15:40 Codeine; iw 15:40 Demerol; iw 15:40 Sulfa (Sulfonamide Antibiotics); iw 15:40 Tetanus Vaccines \T\ Toxoid; iw - Home Meds: 15:40 doxazosin 4 mg oral tab twice a day [Active]; amlodipine 5 mg tab twice a day [Active]; iw citalopram 10 mg tab 1 tab once daily [Active]; hydralazine 50 mg oral tab 2 times per day [Active]; levothyroxine 88 mcg tab 1 tab once daily [Active]; famotidine 20 mg Oral tab 1 tab once daily [Active]; warfarin 2 mg oral tab once daily [Active]; Advair Diskus 250-50 mcg/dose Inhl dsdv 1 puff 2 times per day [Active]; Vitamin D Oral daily [Active]; Lasix 40 mg Oral tab 1 tab once daily [Active]; Tart Aguilar oral daily [Active]; PreserVision AREDS oral oral daily [Active]; - PMHx: 15:40 ESRD; Heart Murmur; Hypertension; Pseudocholinesterase deficiency; Ventricular septal iw defect; - PSHx: 15:40 open heart surgery; Cholecystectomy; iw Screenin:21 Abuse screen: Denies threats or abuse. Denies injuries from another. Nutritional iw screening: No deficits noted. Tuberculosis screening: No symptoms or risk factors identified. Fall Risk IV access (20 points). Assessment: 15:45 General: Appears in no apparent distress. Behavior is calm, cooperative. General:. iw Pain: Denies pain. Neuro: Level of Consciousness is awake, alert, obeys commands, Oriented to person, place, time, situation, Moves all extremities. Full function. Cardiovascular: Patient's skin is warm and dry. Respiratory: Reports shortness of breath at rest on exertion cough that is non-productive, labored breathing Respiratory effort is even, unlabored, Respiratory pattern is regular, symmetrical. Derm: Skin is fragile, is thin, Skin is pink, warm \T\ dry. Musculoskeletal: Range of motion: intact in all extremities. 17:06 Reassessment: pt got herself up to bathroom without oxygen and SpO2 dropped to 70%, iw EZEKIEL Christianson notified. 17:10 Reassessment: Patient appears in no apparent distress at this time. Patient and/or iw family updated on plan of care and expected duration. Pain level reassessed. Patient is alert, oriented x 3, equal unlabored respirations, skin warm/dry/pink. pt placed back on oxygen, SpO2 back up to 96%. 17:30 Reassessment: pt updated on POC, pt advised she needs to be admitted to hospital due to iw pulmonary edema and hypoxia, pt states she cannot stay because she has to take care of her 96 year old mother and her is going out of town, there is no one else to care for her. 18:10 Reassessment: Patient appears in no apparent distress at this time. Patient and/or iw family updated on plan of care and expected duration. Pain level reassessed. Patient is alert, oriented x 3, equal unlabored respirations, skin warm/dry/pink. pt still refuses admission after speaking with EZEKIEL Christianson and after consultation with Dr. Raza. Pt was advised to increase her lasix and use her home O2 and follow up with Dr. Raza. Vital Signs: 15:32 BP 171 / 40; Pulse 64; Resp 22 S; Temp 98.3; Pulse Ox 80% on R/A; iw 16:21 Pulse Ox 98% on 2 lpm NC; iw 16:33 BP 100 / 65; Pulse 61; Resp 18 S; Pulse Ox 100% on Nebulizer Mask; iw 17:21 BP 175 / 50; Pulse 66; Resp 20 S; Pulse Ox 85% on 2 lpm NC; iw ED Course: 15:16 Patient arrived in ED. ds1 15:27 Sammy Koch NP is PHCP. pm1 15:27 Houston Garcia MD is Attending Physician. pm1 15:35 Triage completed. iw 15:35 Arm band placed on. iw 16:00 Initial lab(s) drawn, by me, sent to lab. First set of blood cultures drawn. Inserted iw saline lock: 20 gauge in right antecubital area, using aseptic technique. Blood collected. 16:20 Unique Gilmore RN is Primary Nurse. iw 16:27 XRAY Chest (1 view) In Process Unspecified. EDMS 17:51 Jerry Raygoza MD is Referral Physician. pm1 17:52 Latisha Raza MD is Referral Physician. pm1 18:20 No provider procedures requiring assistance completed. IV discontinued, intact, iw bleeding controlled, No redness/swelling at site. Pressure dressing applied. Administered Medications: 16:32 Drug: Lasix 40 mg Route: IVP; Site: right antecubital; iw 17:28 Follow up: Response: No adverse reaction iw 16:32 Drug: Albuterol 2.5 mg Route: Inhalation; iw Outcome: 17:50 Discharge ordered by . pm1 18:10 AMA AMA form signed iw 18:10 Condition: improved 18:23 Patient left the ED. iw Addendum: 01/17/2020 14:20 Addendum: COVID-19 Result: Negative result given to RN to notify pt. Left voice mail. d m5 Signatures: Dispatcher [employer] EDMS Karen Ryder RN RN dmMeryl Cedillo ds1 Unique Gilmore RN RN iw Sammy Koch, EZEKIEL SPECIAL PROJECTS COORDINATOR pm1
--- NOTE | 2020-01-15 12:24 | EKG ---
Test Date: 2020-01-14 Test Time: 15:49:18 Spool Salvager: JUNG MEASUREMENT RESULTS: Intervals: Rate: 65 GA: 174 QRSD: 140 QT: 452 QTc: 470 [place]: P: 100 GA: 174 QRS: 153 T: 70 INTERPRETIVE STATEMENTS: Suspect arm lead reversal, interpretation assumes no reversal Electronic atrial pacemaker Right bundle branch block Abnormal ECG Compared to ECG 08/16/2017 15:09:58 Sinus bradycardia no longer present Sinus arrhythmia no longer present Electronically Signed On 01-15-20 12:22:47 CDT by Jerry Raygoza
--- NOTE | 2020-01-15 12:24 | EKG ---
Test Date: 2020-01-14 Test Time: 15:54:30 Outside Event Sales Specialist: JUNG MEASUREMENT RESULTS: Intervals: Rate: 63 IL: 178 QRSD: 136 QT: 442 QTc: 452 [place]: P: 99 IL: 178 QRS: 151 T: 59 INTERPRETIVE STATEMENTS: Suspect arm lead reversal, interpretation assumes no reversal Electronic atrial pacemaker Right bundle branch block Abnormal ECG Compared to ECG 01/14/2020 15:49:18 No significant changes Electronically Signed On 01-15-20 12:22:46 CDT by Jerry Raygoza
--- NOTE | 2020-01-15 12:24 | EKG ---
Test Date: 2020-01-14 Test Time: 15:56:07 Border Patrol Officer: JUNG MEASUREMENT RESULTS: Intervals: Rate: 65 NM: 180 QRSD: 138 QT: 442 QTc: 459 [place]: P: 90 NM: 180 QRS: 137 T: 49 INTERPRETIVE STATEMENTS: Suspect arm lead reversal, interpretation assumes no reversal Electronic atrial pacemaker Right bundle branch block Abnormal ECG Compared to ECG 01/14/2020 15:54:30 No significant changes Electronically Signed On 01-15-20 12:22:46 CDT by Jerry Raygoza
[2020-01-16 21:04] VITALS: TEMP 98.3
[2020-01-16 21:07] VITALS: BP 175/50; O2SAT 85
== END 2020-01-14 18:23 | disposition left against medical advice (07) ==
LOC: ER 15:12
DX: I50.40 Unspecified combined systolic (congestive) and diastolic (congestive) heart failure (principal); E87.70 Fluid overload, unspecified; R06.02 Shortness of breath; Z88.6 Allergy status to analgesic agent; Z88.2 Allergy status to sulfonamides; Z88.7 Allergy status to serum and vaccine; I12.0 Hypertensive chronic kidney disease with stage 5 chronic kidney disease or end stage renal disease; N18.6 End stage renal disease; Z53.29 Procedure and treatment not carried out because of patient's decision for other reasons; Z20.828 Contact with and (suspected) exposure to other viral communicable diseases
CPT/HCPCS: 93005 ×3; 87040 ×2; 87070; 85025; 80048; 36415; 83735; 85610; 80076; 87081; 83605; 84484; 84145; 83880; 87804 ×2; 71045; 96374; 99284; U0002; J1940

== ENCOUNTER 2020-03-11 18:02 | Inpatient (IN) | payer OTHER, BC ==
--- OUTSIDE RECORDS SUMMARY | 2020-03-11 18:04 | XMS REPORT | Clinical Summary ---
:1945 Author Organization [facility] Address [address] [place] [address] Care Team Providers Name Role Phone Isaac [...] arm f/u with her pcp Bradycardia 08/17/2017 longterm current use of anticoagulant therapy 018 Last [...] Elevated international normalized ratio (INR) 10/13/19 16 Surgical History Surgery Date Site/Laterality Comments GALLBLADDER SURGERY CARDIAC CATHETERIZATION CARDIAC SURGERY 05/15/2007 - VSD SURGERY- Dr 05/14/2008 TOÑO CARDIAC ELECTROPHYSIOLOGY 09/13/2017 N/A Proced ure: Ep ppi PROCEDURE generator insert ion dual; Surgeon: Yamil Bowling Jr., MD; Location: [facility] Lab Invasive Locatio n; Service: Cardiovascular; Laterality: N/A; Medical devices from this surgery are in the Implants sec tion. Medical History Medical History Date Comments GERD (gastroesophageal reflux disease) Sleep apnea, obstructive Pseudocholinesterase deficiency Arrhythmia Hypertension Pulmonary hypertension (HCC) Syncope Disease of thyroid gland Chronic kidney disease Kidney failure, acute (HCC) SOB (shortness of breath) History of blood clots Family History Medical History Relation Name Comments Hypertension Father Hypertension Mother Relation Name Status Comments Father Mother Social History Tobacco Use Types Packs/Day Years Used Date Never Smoker Smokeless Tobacco: Never Used Alcohol Use Drinks/Week oz/Week Comments No Sex Assigned at Date Recorded Not on file Last Filed Vital Signs Not on file Plan of Treatment Health Maintenance Due Date Last Done Comments BREAST CANCER SCREENING 1997 COLONOSCOPY SCREENING 1997 SHINGLES VACCINES (#1) 1997 65+ PNEUMOCOCCAL VACCINE (1 of 1 - PPSV23) 2012 INFLUENZA VACCINE 12/14/2019 Implants Implanted Type Area Auto Battery Builder Device Shelf Model / Identifier Expiration Serial / Date Lot Accolade Mri Dr Pacemaker - [id number] - [id number] Cardiac N/A: RANDOLPH 04/05/2019 [id number] / Implanted: Qty: 1 on 09/13/2017 by Yamil Bowling Jr., M D at [facility] Pacemaker N/A SCIENTIFIC- [id number] / Generators [id number] Ingevity Mri Pacing Lead 45cm - [id number] - [id number] Cardiac Pacing N/A: RANDOLPH 07/11/2019 7740 45 / Implanted: Qty: 1 on 09/13/2017 by Yamil Bowling Jr., M D at [facility] Leads or N/A [employer]x [id number] / Electrodes or [id number] Accessories 52cm Ingevity Mri Active Fixation Pacing Lead - [id number] - [id number] Cardiac Pacing N/A: RANDOLPH 12/08/2018 7741 / Implanted: Qty: 1 on 09/13/2017 by Yamil Bowling Jr., M D at [facility] Leads or N/A [employer] [id number] / Electrodes or [id number] Accessories Results Not on fileafter 03/11/2019 Insurance Payer Benefit Plan / Subscriber ID Effective Dates Phone Addre ss Type Group MEDICARE MEDICARE PART A [id number] 2012-Present [place] B BCBS BCBS PAR/TRAD [id number] 2012-Present Indemnity PLAN (Work) Advance Directives For more information, please contact: [phone] Type Date Recorded Patient Barrel Tester Explanati on Advance Directives, Living Will 09/13/2017 5:38 AM and Medical Power of Ged Instructor Advance Directives, Living Will 09/13/2017 5:39 AM and Medical Power of Ged Instructor
--- OUTSIDE RECORDS SUMMARY | 2020-03-11 18:05 | XMS REPORT | Continuity of Care Document ---
:1945 Author Organization [facility] t Address [address] [place] [address] Care Team Providers Name Role Phone Raymond NORWOOD, B Primary Care Physician Edwin NUNO Attending Clinician Edelmira NORWOOD Attending Clinician Payers Payer Name Policy Type Policy Effective Date Expiration Date Sour ce Number MEDICAREMEDICARE PART [id number] 2012 MD Brenden Davidson AND 00:00:00 [id number] 2013-P [id number] [place] [id number] 2012 MD Romeo calzada [facility] PPO 4 00:00:00 [id number] Problems Condition Condition Condition Status Onset Resolution Last Treating Co mments Source Name Details Category Date Date Treatment Clinician Date Mammograph Mammograph Disease Active M D y abnormal y abnormal 3-12 An derso 00:00: n 00 SOB SOB Disease Active [facility] (shortness (shortness 6-04 Assessmen Methodi of breath) of breath) 00:00: t & Plan: st 00 Uses oxygen 2 LPM and doing well Sleep Sleep Disease Active [place] apnea, apnea, 6-04 Methodi obstructiv obstructiv 00:00: st e e 00 GERD GERD Disease Active [facility] (gastroeso (gastroeso 604 Assessmen Methodi [...] 00 Stage 3 Stage 3 Disease Active [place] chronic chronic 09-06 Methodi kidney kidney 00:00: st disease disease 00 Urinary Urinary Disease Active [place] tract tract 09-06 Methodi infection infection 00:00: st Essential Essential Disease Active Jonnathan Reanna ston hypertensi hypertensi 09-06 Assessmen Methodi on on 00:00: t & Plan: 00 160/60 mmhgManua raul checked right arm f/u with her pcp Bradycardi Bradycardi Disease Active H isaura a a 08-17 Methodi 00:00: st 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 Reanna ston current current -05 Assessmen Metho di use of use of 00:00: t & Plan: st anticoagul anticoagul 00 Warfarin ant ant 2 mg therapy therapy daily No IVC filterHx PE Chronic Chronic Disease Active [facility] obstructiv obstructiv 08-17 Assessmen Methodi [...] vasodilat or therapy Syncope Syncope Disease Active [place] 08-17 Methodi 00:00: st 00 Elevated Elevated [...] 00 s to drug Codeine Propensi Active [place] ty to 09-06 Methodi adverse 00:00: st reaction 00 s to drug Meperidi Propensi Active [place] ty to 25 Methodi adverse 00:00: st reaction 00 s to drug Sulfa Propensi Active [place] (Sulfona ty to 09-06 Methodi mide adverse 00:00: st Antibiot reaction 00 ics) s to drug Family History Family Member Diagnosis Comments Start Date Stop Date Source Natural father Hypertension [place] [facility] Natural father Mesothelioma Romeo son Natural mother Hypertension [place] [facility] Other Pancreatic cancer MD Chaparro you Family member Breast cancer MD Walters son Family member Ovarian cancer MD Chaparro you Social History Social Habit Start Date Stop Date Quantity Comments Source History [facility] MD Wilcox Alcohol Std Drinks History [facility] MD [place] Alcohol Binge Sex Assigned At F MD Alonso on Tobacco use and 2019-07-25 2019-07-25 Never used MD Alonso on exposure 00:00:00 00:00:00 Alcohol intake 2019-07-25 2019-07-25 Lifetime MD Michelle n 00:00:00 00:00:00 non-drinker (finding) History [facility] 2019-07-25 2019-07-25 1 MD Wilcox Alcohol Frequency [...] 19:13: mouth. n 08 cholecalcif 2020-0 Yes [id number][i Take MD johana, 3-12 U] 15,000 Anderso [...] st capsule 58 daily. cholecalcif 2018-0 Yes [id number] Q30D Take [place] johana, 6-04 50,000 Methodi vitamin D3, 14:38: Units by st (VITAMIN 58 mouth D3) 1,000 every 30 unit tablet (thirty) days. hydrALAZINE 2018-0 Yes 25mg Q.[id number] Take 25 mg [place] (APRESOLINE 6-04 [id number] by mouth 3 Methodi ) 25 MG [...] every mcg tablet morning. albuterol Yes 2{puff} Q.[id number] Inhale 2 [place] (PROAIR 6-04 [id number] puffs 3 Met hodi HFA,PROVENT 14:38: 3D [...] Procedure Date / Time Performed Performing Clinician [facility] US BREAST COMPLETE BILATERAL 2019-07-30 18:21:29 Risa Pineda MD US CHEST 2019-07-30 18:21:29 Risa Pineda MD MAMMO DIGITAL DIAGNOSTIC 2019-07-30 17:11:42 Risa Pineda MD BILATERAL W [place] OSI MAMMOGRAPHY UNILATERAL 2019-07-03 21:02:17 Annabella Hickey MD LEFT OSI MAMMO BILATERAL 2019-06-07 21:02:28 Annabella Hickey MD rsgisella Plan of Care Planned Activity Planned Date Details Comments Source Future Scheduled 2019-12-14 INFLUENZA VACCINE [place] [facility] 00:00:00 [code = INFLUENZA VACCINE] Future Scheduled 2012 65+ PNEUMOCOCCAL [place] [facility] Test 00:00:00 VACCINE (1 of 1 - PPSV23) [code = 65+ PNEUMOCOCCAL VACCINE (1 of 1 - PPSV23)] Future Scheduled 1997 BREAST CANCER [place] [facility] Test 00:00:00 SCREENING [code = BREAST CANCER SCREENING] Future Scheduled 1997 COLONOSCOPY SCREENING [place] [facility] 00:00:00 [code = COLONOSCOPY SCREENING] Future Scheduled 1997 SHINGLES VACCINES (#1) [place] [facility] 00:00:00 [code = SHINGLES VACCINES (#1)] [...] been compared to prior imaging studies performed atan outside location on 12/31/2009, 09/02/2014, 06/07/2019 and [...] 07/30/2019. Theabove recommendations were also discussed with Anoop Aniyah by Dr. Sandoval at thetime of her examination and all questions were answered. Lab Interpretation (test code = Abnormal [id number]) MD WilcoxUS Breast Complete - [id number] 18:25:46There is no evidence of malignancy. Left [...] compared to a prior imaging study performed [facility] on 07/30/2019. Images were obtained in multiple [...] Left breast stereotactic biopsies [facility] 2019-07-30 18:25:46There is no evidence [...] compared to a prior imaging study performed [facility] on 07/30/2019. Images were obtained in multiple [...] breast stereotactic biopsies have been recommendedMD Angela [id number] 20:02:41For comparison only. No interpretation requested.MD Angela MAMMOGRAPHY UNILATERAL [id number] 20:02:23For comparison only. No interpretation requested.MD Wilcox
[2020-03-11 18:58] LABS: Absolute Lymphocytes (CBC) 1.4 K/uL (0.7-4.9); Basophils % 1.4 % (0-1.3); Hematocrit 34.9 % (36.0-45.0); Lymphocytes % 21.5 % (15.3-44.8); MPV 10.1 fL (7.6-11.3); RBC Red Blood Cell Count 4.52 M/uL (3.86-4.86)
[2020-03-11 18:59] LABS: Protime INR 1.26
[2020-03-11] MEDS ORDERED: FUROSEMIDE 100 MG/10 ML VIAL IV ONE (19:18)
--- NOTE | 2020-03-11 19:20 | RAD REPORT ---
EXAM DESCRIPTION: Amina Single View03/11/2020 6:50 pm CLINICAL HISTORY: Shortness of breath COMPARISON: January 2020 FINDINGS: Mild bilateral pulmonary opacities. Small to moderate pleural effusions are suspected. . The heart is mildly enlarged. Pacemaker leads are in place. IMPRESSION: CHF
[2020-03-11 19:21] LABS: ALT/SGPT 20 U/L (12-78); AST/SGOT 33 U/L (15-37); Albumin 3.1 g/dL (3.4-5.0); Alkaline Phosphatase 135 U/L (45-117); BUN Blood Urea Nitrogen 49 mg/dL (7-18); Bicarbonate 26 mmol/L (21-32); Bilirubin Direct 0.2 mg/dL (0-0.2); Bilirubin Total 0.5 mg/dL (0.2-1.0); Glucose Level 104 mg/dL (74-106); Magnesium 2.3 mg/dL (1.8-2.4); NT PRO-BNP 3881 pg/mL (<125); Potassium 4.6 mmol/L (3.5-5.1); Protein, Total 7.6 g/dL (6.4-8.2); Sodium Level 143 mmol/L (136-145); Troponin (Emerg Dept Use Only) < 0.02 ng/mL (0.0-0.045)
--- NOTE | 2020-03-11 19:36 | ER ---
Nurse's Notes [facility] Name: Jaymie Dill Age: 74 yrs Sex: Female : 1945 Arrival Date: 03/11/2020 Time: 18:03 Bed 17 Private MD: Diagnosis: Combined systolic (congestive) and diastolic (congestive) heart failure Presentation: 03/11 18:20 Chief complaint: Patient states: SOB and weakness for 2 days. No known fever. Wears ll1 oxygen 2 liters at home, states her normal O2 sat. is around 88%. Coronavirus screen: Client denies travel out of the [place] in the last 14 days. cough unrelated to allergies, difficulty breathing, fatigue, shortness of breath, Client presents with at least one sign or symptom that may indicate coronavirus-19. Standard/surgical mask placed on the client. Ebola Screen: Patient denies travel to an Ebola-affected area in the 21 days before illness onset. Initial Sepsis Screen: Does the patient meet any 2 criteria? RR > 20 per min. No. Patient's initial sepsis screen is negative. Does the patient have a suspected source of infection? Yes: Productive cough/pneumonia. Risk Assessment: Do you want to hurt yourself or someone else? Patient reports no desire to harm self or others. Onset of symptoms was March 10, 2020. 18:20 Method Of Arrival: Wheelchair ll1 18:20 Acuity: SALUD 2 ll1 Triage Assessment: 19:15 General: Behavior is calm, cooperative, appropriate for age. wh 19:17 Respiratory: Onset: The symptoms/episode began/occurred gradually, the patient has mild wh shortness of breath. Historical: - Allergies: 18:22 Codeine; ll1 18:22 Demerol; ll1 18:22 Sulfa (Sulfonamide Antibiotics); ll1 18:22 Tetanus Vaccines \T\ Toxoid; ll1 - PMHx: 18:22 ESRD; ventricular septal defect; Pseudocholinesterase deficiency; Heart Murmur; ll1 Hypertension; stage 3 renal disease; Pacemaker; - PSHx: 18:22 Cholecystectomy; open heart surgery; ll1 - Immunization history:: Flu vaccine is up to date. - Social history:: Smoking status: Patient/guardian denies using tobacco. Screenin:50 Abuse screen: Denies threats or abuse. Denies injuries from another. Nutritional hb screening: No deficits noted. Tuberculosis screening: No symptoms or risk factors identified. Fall Risk None identified. Assessment: 18:51 General: Appears distressed. Pain: Pain currently is 2 out of 10 on a pain scale. hb Neuro: Level of Consciousness is awake, alert, obeys commands, Oriented to person, place, time, situation. Cardiovascular: Capillary refill < 3 seconds Patient's skin is warm and dry. Rhythm is regular. Respiratory: Reports shortness of breath Airway is patent Respiratory effort is labored, Respiratory pattern is tachypnea. GI: No signs and/or symptoms were reported involving the gastrointestinal system. : No signs and/or symptoms were reported regarding the genitourinary system. EENT: No signs and/or symptoms were reported regarding the EENT system. Derm: Skin is pink, warm \T\ dry. Musculoskeletal: No signs and/or symptoms reported regarding the musculoskeletal system. 19:16 Reassessment: Patient appears in no apparent distress at this time. Patient and/or family updated on plan of care and expected duration. Pain level reassessed. Patient is alert, oriented x 3, equal unlabored respirations, skin warm/dry/pink. Pain: Denies pain. Cardiovascular: Heart tones S1 S2. Respiratory: Reports shortness of breath Airway is patent Respiratory effort is labored, Respiratory pattern is tachypnea Breath sounds with rales. 20:30 Reassessment: Patient appears in no apparent distress at this time. No changes from previously documented assessment. Patient and/or family updated on plan of care and expected duration. Pain level reassessed. Patient is alert, oriented x 3, equal unlabored respirations, skin warm/dry/pink. Explained POC need for admit. 21:15 Reassessment: Patient appears in no apparent distress at this time. Patient and/or family updated on plan of care and expected duration. Pain level reassessed. Patient is alert, oriented x 3, equal unlabored respirations, skin warm/dry/pink. Notified Pt that we are just awaiting covid result to establish room assignment. 22:16 Reassessment: Patient appears in no apparent distress at this time. Patient and/or family updated on plan of care and expected duration. Pain level reassessed. Patient is alert, oriented x 3, equal unlabored respirations, skin warm/dry/pink. Pt negative for Covid, notified house sup. Vital Signs: 18:20 BP 168 / 51; Pulse 82; Resp 24; Temp 98.2(O); Pulse Ox 80% on 2 lpm NC; Pain 2/10; ll1 19:16 BP 173 / 52; Pulse 61; Resp 20; Pulse Ox 91% on 2 lpm NC; wh 20:30 BP 169 / 52; Pulse 63; Resp 20; Pulse Ox 93% on 2 lpm NC; wh 21:15 BP 173 / 53; Pulse 72; Resp 18; Pulse Ox 96% on 2 lpm NC; wh 22:16 BP 168 / 50; Pulse 64; Resp 18; Pulse Ox 92% on 2 lpm NC; wh 23:00 BP 160 / 74; Pulse 68; Resp 18; Pulse Ox 92% on 2 lpm NC; wh ED Course: 18:03 Patient arrived in ED. ds1 18:20 [facility]C [facility] kb 18:20 Christina Moreno MD is Attending Physician. kb 18:21 Triage completed. ll1 18:23 Arm band placed on Patient placed in an exam room, on a stretcher. ll1 18:24 Susan Szymanski RN is Primary Nurse. hb 18:34 Inserted saline lock: 20 gauge in right antecubital area, using aseptic technique. hb Blood collected. 18:50 XRAY Chest (1 view) In Process Unspecified. EDMS 18:50 Patient has correct armband on for positive identification. Bed in low position. Call hb light in reach. 19:34 Latisha Raza MD is Hospitalizing Provider. kb 20:21 Pt swabbd for COVID-19. jp3 22:55 No provider procedures requiring assistance completed. Patient admitted, IV remains in wh place. Administered Medications: 19:15 Drug: Lasix 60 mg {Note: 173/52.} Route: IVP; Site: right antecubital; 20:59 Follow up: Response: No adverse reaction Outcome: 19:35 Decision to Hospitalize by Provider. kb 22:55 Admitted to Med/surg accompanied by tech, family with patient, via wheelchair, room wh 207, with oxygen, with chart, Report called to Ligia PICHARDO 22:55 Condition: stable 22:55 Instructed on the need for admit. 23:02 Patient left the ED. Signatures: Dispatcher [employer] EDMS Robe Mooreistin, PERSONAL DEVELOPMENT MENTOR-C PERSONAL DEVELOPMENT MENTOR-Ckb Meryl Owusu ds1 Susan Szymanski, RN RN Nicola Pa Rober Correia jp3 Gracie Aparicio, RN RN ll1 Corrections: (The following items were deleted from the chart) 20:31 20:30 Reassessment: Patient appears in no apparent distress at this time. No changes wh from previously documented assessment. Patient and/or family updated on plan of care and expected duration. Pain level reassessed. Patient is alert, oriented x 3, equal unlabored respirations, skin warm/dry/pink. wh
--- NOTE | 2020-03-11 19:36 | EDPHYS ---
Physician Documentation [facility] Name: Jaymie Dill Age: 74 yrs Sex: Female : 1945 Arrival Date: 03/11/2020 Time: 18:03 Bed 17 Private MD: ED Physician Christina Moreno HPI: 03/11 18:42 This 74 yrs old Female presents to ER via Wheelchair with complaints of kb Breathing Difficulty, Weakness. 18:42 Onset: The symptoms/episode began/occurred 4 day(s) ago. Duration: The symptoms are kb continuous. The patient's shortness of breath is aggravated by exertion, is alleviated by rest, application of supplemental oxygen. Severity of symptoms: At their worst the symptoms were moderate in the emergency department the symptoms are unchanged. The patient has experienced similar episodes in the past. The patient has not recently seen a physician. 18:49 The patient has shortness of breath with light activity. Associated signs and symptoms: kb The patient has no apparent associated signs or symptoms. Historical: - Allergies: 18:22 Codeine; ll1 18:22 Demerol; ll1 18:22 Sulfa (Sulfonamide Antibiotics); ll1 18:22 Tetanus Vaccines \T\ Toxoid; ll1 - PMHx: 18:22 ESRD; ventricular septal defect; Pseudocholinesterase deficiency; Heart Murmur; ll1 Hypertension; stage 3 renal disease; Pacemaker; - PSHx: 18:22 Cholecystectomy; open heart surgery; ll1 - Immunization history:: Flu vaccine is up to date. - Social history:: Smoking status: Patient/guardian denies using tobacco. ROS: 18:40 Constitutional: Negative for fever, chills, and weight loss, Cardiovascular: Negative kb for chest pain, palpitations, and edema, Abdomen/GI: Negative for abdominal pain, nausea, vomiting, diarrhea, and constipation, Back: Negative for injury and pain, : Negative for injury, bleeding, discharge, and swelling, MS/Extremity: Negative for injury and deformity, Skin: Negative for injury, rash, and discoloration, Neuro: Negative for headache, weakness, numbness, tingling, and seizure. 18:40 Respiratory: Positive for dyspnea on exertion, shortness of breath, Negative for cough, hemoptysis, orthopnea, pleurisy, sputum production, wheezing. Exam: 18:40 Constitutional: This is a well developed, well nourished patient who is awake, alert, kb and in no acute distress. Head/Face: Normocephalic, atraumatic. Chest/axilla: Normal chest wall appearance and motion. Nontender with no deformity. No lesions are appreciated. Abdomen/GI: Soft, non-tender, with normal bowel sounds. No distension or tympany. No guarding or rebound. No evidence of tenderness throughout. Back: No spinal tenderness. No costovertebral tenderness. Full range of motion. Skin: Warm, dry with normal turgor. Normal color with no rashes, no lesions, and no evidence of cellulitis. MS/ Extremity: Pulses equal, no cyanosis. Neurovascular intact. Full, normal range of motion. Neuro: Awake and alert, GCS 15, oriented to person, place, time, and situation. Cranial nerves II-XII grossly intact. Motor strength 5/5 in all extremities. Sensory grossly intact. Cerebellar exam normal. Normal gait. 18:40 Cardiovascular: Rate: normal, Pulses: no pulse deficits are appreciated, Heart sounds: murmur. 20:00 Respiratory: moderate respiratory distress is noted, Respirations: labored breathing, kb Breath sounds: decreased breath sounds, that are mild, that are moderate, are located in both bases. Vital Signs: 18:20 BP 168 / 51; Pulse 82; Resp 24; Temp 98.2(O); Pulse Ox 80% on 2 lpm NC; Pain 2/10; ll1 19:16 BP 173 / 52; Pulse 61; Resp 20; Pulse Ox 91% on 2 lpm NC; wh 20:30 BP 169 / 52; Pulse 63; Resp 20; Pulse Ox 93% on 2 lpm NC; wh 21:15 BP 173 / 53; Pulse 72; Resp 18; Pulse Ox 96% on 2 lpm NC; wh 22:16 BP 168 / 50; Pulse 64; Resp 18; Pulse Ox 92% on 2 lpm NC; wh 23:00 BP 160 / 74; Pulse 68; Resp 18; Pulse Ox 92% on 2 lpm NC; wh MDM: 18:20 Patient medically screened. kb 18:36 Data reviewed: vital signs, nurses notes. Data interpreted: Pulse oximetry: on 2L(s) kb per nasal canula, home O2 is 80 %. Interpretation: hypoxia. 19:31 Counseling: I had a detailed discussion with the patient and/or guardian regarding: the kb historical points, exam findings, and any diagnostic results supporting the discharge/admit diagnosis, lab results, radiology results, the need for further work-up and treatment in the hospital. Physician consultation: A Ry NORWOOD was contacted at 19:34, regarding admission, to the telemetry unit. 03/11 18:20 Order name: Basic Metabolic Panel; Complete Time: 19:25 kb 03/11 18:20 Order name: CBC with Diff; Complete Time: 19:04 kb 03/11 18:20 Order name: LFT's; Complete Time: 19:25 kb 03/11 18:20 Order name: Magnesium; Complete Time: 19:25 kb 03/11 18:20 Order name: NT PRO-BNP; Complete Time: 19:25 kb 03/11 18:20 Order name: PT-INR; Complete Time: 19:04 kb 03/11 18:20 Order name: Troponin (emerg Dept Use Only); Complete Time: 19:25 kb 03/11 18:20 Order name: XRAY Chest (1 view); Complete Time: 19:25 kb 03/11 18:20 Order name: EKG; Complete Time: 18:21 kb 03/11 18:20 Order name: Cardiac monitoring; Complete Time: 18:50 kb 03/11 19:56 Order name: COVID-19 ar5 03/11 20:27 Order name: CORONAVIRUS EDNJ 03/11 21:53 Order name: SARS-COV-2 RT PCR [facility] 03/11 18:20 Order name: EKG - Nurse/Tech; Complete Time: 18:50 kb 03/11 18:20 Order name: IV Saline Lock; Complete Time: 18:50 kb 03/11 18:20 Order name: Labs collected and sent; Complete Time: 18:50 kb 03/11 18:20 Order name: O2 Per Protocol; Complete Time: 18:50 kb 03/11 18:20 Order name: O2 Sat Monitoring; Complete Time: 18:50 kb Administered Medications: 19:15 Drug: Lasix 60 mg {Note: 173/52.} Route: IVP; Site: right antecubital; wh 20:59 Follow up: Response: No adverse reaction Disposition: 03/11/20 19:35 Hospitalization ordered by Latisha Raza for Observation. Preliminary diagnosis is Combined systolic (congestive) and diastolic (congestive) heart failure. - Bed requested for Telemetry/MedSurg (observation). - Status is Observation. - Condition is Stable. - Problem is new. - Symptoms are unchanged. Signatures: Dispatcher [employer] EDMS Lexi Moore, REEL OPERATOR-C REEL OPERATOR-Ckb Alec Luna, REEL OPERATOR-C REEL OPERATOR-Cla1 Argelia Barreto, RN RN tl1 Nicola Pa Gracie Aparicio RN RN ll1 Corrections: (The following items were deleted from the chart) 20:01 18:40 Constitutional: This is a well developed, well nourished patient who is awake, kb alert, and in no acute distress. Head/Face: Normocephalic, atraumatic. Chest/axilla: Normal chest wall appearance and motion. Nontender with no deformity. No lesions are appreciated. Abdomen/GI: Soft, non-tender, with normal bowel sounds. No distension or tympany. No guarding or rebound. No evidence of tenderness throughout. Back: No spinal tenderness. No costovertebral tenderness. Full range of motion. Skin: Warm, dry with normal turgor. Normal color with no rashes, no lesions, and no evidence of cellulitis. MS/ Extremity: Pulses equal, no cyanosis. Neurovascular intact. Full, normal range of motion. Neuro: Awake and alert, GCS 15, oriented to person, place, time, and situation. Cranial nerves II-XII grossly intact. Motor strength 5/5 in all extremities. Sensory grossly intact. Cerebellar exam normal. Normal gait. kb 22:33 19:35 Hospitalization Ordered by Latisha Raza MD for Observation. Preliminary diagnosis is tl1 Combined systolic (congestive) and diastolic (congestive) heart failure. Bed requested for Telemetry/MedSurg (observation). Status is Observation. Condition is Stable. Problem is new. Symptoms are unchanged. kb 23:02 22:33 03/11/2020 19:35 Hospitalization Ordered by Latisha Raza MD for Observation. Preliminary diagnosis is Combined systolic (congestive) and diastolic (congestive) heart failure. Bed requested for Telemetry/MedSurg (observation). Status is Observation. Condition is Stable. Problem is new. Symptoms are unchanged. tl1
[2020-03-11 23:39] VITALS: BMI 23.6
[2020-03-12 04:49] LABS: Lymphocytes % 18.4 % (15.3-44.8); MPV 10.2 fL (7.6-11.3); RBC Red Blood Cell Count 4.11 M/uL (3.86-4.86)
[2020-03-12 05:07] LABS: Potassium 4.7 mmol/L (3.5-5.1)
[2020-03-12] MEDS ORDERED: INFLUENZA VACCINE (for 3y+) 0.5 ML DOSE IMVAC ONE (08:00)
[2020-03-12] MEDS ORDERED: CALCITROL 0.25 MCG CAP PO SCH (08:00)
[2020-03-12] MEDS ORDERED: DOXAZOSIN 2 MG TAB ONE ×2 (08:08→20:38)
[2020-03-12] MEDS: SALMETEROL IH SCH (09:00)
[2020-03-12] MEDS: DOXAZOSIN 4 MG TAB PO SCH ×2 (09:00→21:00)
[2020-03-12] MEDS: FLUTICASONE IH SCH (09:00)
[2020-03-12] MEDS: CITALOPRAM 10 MG TABLET PO SCH (09:11)
[2020-03-12] MEDS: HYDRALAZINE HCL 25 MG TABLET PO SCH ×2 (09:12→21:02)
[2020-03-12] MEDS: FUROSEMIDE 40 MG/4 ML VIAL IV SCH ×2 (09:13→17:08)
[2020-03-12] MEDS: WARFARIN SODIUM 2 MG TAB PO SCH (17:08)
[2020-03-12] MEDS: FAMOTIDINE 20 MG TAB PO SCH (20:59)
[2020-03-13 05:20] LABS: Protime INR 1.42
[2020-03-13 05:21] LABS: Basophils % 2.2 % (0-1.3); Lymphocytes % 22.5 % (15.3-44.8); MPV 10.3 fL (7.6-11.3); RBC Red Blood Cell Count 4.01 M/uL (3.86-4.86)
[2020-03-13] MEDS: LEVOTHYROXINE SOD 0.088 MG TAB PO SCH (05:49)
[2020-03-13 05:57] LABS: Folic Acid, (Folate) 14.6 ng/mL (3.1-17.5); Potassium 4.4 mmol/L (3.5-5.1)
[2020-03-13 06:01] LABS: Thyroid Stimulating Hormone 6.7 uIU/mL (0.360-3.740)
--- NOTE | 2020-03-13 08:08 | ECHO ---
HEIGHT: 5 ft 3 in WEIGHT: 127 lb 4.8 oz DATE OF STUDY: 03/12/[address]: John Raza MD 2-DIMENSIONAL: YES M.MODE: YES DOPPLER: YES COLOR FLOW: YES TDS: PORTABLE: DEFINITY: BUBBLE STUDY: DIAGNOSIS: CONGESTIVE HEART FAILURE CARDIAC HISTORY: CATHERIZATION: YES SURGERY: YES PROSTHETIC VALVE: NO PACEMAKER: YES MEASUREMENTS (cm) DIASTOLIC (NORMALS) SYSTOLIC (NORMALS) IVSd 1.2 (0.6-1.2) LA Diam 3.5 (1.9-4.0) LVEF 72% LVIDd 4.3 (3.5-5.7) LVIDs 2.6 (2.0-3.5) %FS 41% LVPWd 0.9 (0.6-1.2) Ao Diam 2.0 (2.0-3.7) 2 DIMENSIONAL ASSESSMENT: RIGHT ATRIUM: ENLARGED LEFT ATRIUM: NORMAL RIGHT VENTRICLE: NORMAL LEFT VENTRICLE: NORMAL TRICUSPID VALVE: SEVERE TRICUSPID REGUGITATION MITRAL VALVE: NORMAL PULMONIC VALVE: NORMAL AORTIC VALVE: NORMAL PERICARDIAL EFFUSION: MILD AORTIC ROOT: NORMAL LEFT VENTRICULAR WALL MOTION: NORMAL DOPPLER/COLOR FLOW: SEVERE PULMONARY HYPERTENSION COMMENTS: NORMAL LEFT VENTRICULAR EJECTION FRACTION 55-60% WITH NORMAL WALL MOTION. RIGHT ATRIAL ENLARGEMENT. SEVERE PULMONARY HYPERTENSION WITH RIGHT VENTRICULAR SYSTOLIC PRESSURE >60 mmHg. MILD PERICARDIAL EFFUSION (SMALL). TECHNOLOGIST: HAVEN ARZATE
[2020-03-13] MEDS: DOXAZOSIN 4 MG TAB PO SCH ×2 (09:00→20:55)
[2020-03-13] MEDS: FLUTICASONE IH SCH (09:00)
[2020-03-13] MEDS: SALMETEROL IH SCH (09:00)
[2020-03-13] MEDS: HYDRALAZINE HCL 25 MG TABLET PO SCH ×2 (09:27→20:54)
[2020-03-13] MEDS: FUROSEMIDE 40 MG/4 ML VIAL IV SCH ×2 (09:27→17:36)
[2020-03-13] MEDS: CITALOPRAM 10 MG TABLET PO SCH (09:28)
[2020-03-13] MEDS ORDERED: DOXAZOSIN 2 MG TAB ONE ×2 (09:34→20:50)
[2020-03-13] MEDS: WARFARIN SODIUM 2 MG TAB PO SCH (17:36)
[2020-03-13] MEDS: FAMOTIDINE 20 MG TAB PO SCH (20:54)
[2020-03-14] MEDS: LEVOTHYROXINE SOD 0.088 MG TAB PO SCH (05:47)
[2020-03-14] MEDS: CITALOPRAM 10 MG TABLET PO SCH (09:00)
[2020-03-14] MEDS: FLUTICASONE IH SCH (09:00)
[2020-03-14] MEDS: SALMETEROL IH SCH (09:00)
[2020-03-14] MEDS: DOXAZOSIN 4 MG TAB PO SCH (09:28)
[2020-03-14] MEDS: HYDRALAZINE HCL 25 MG TABLET PO SCH (09:29)
[2020-03-14] MEDS: FUROSEMIDE 40 MG/4 ML VIAL IV SCH (09:29)
[2020-03-14] MEDS ORDERED: INFLUENZA VACCINE (for 3y+) 0.5 ML DOSE IMVAC ONE (11:00)
[2020-03-14 12:18] VITALS: BP 158/62; TEMP 97.3
[2020-03-14 12:47] VITALS: O2SAT 93
--- NOTE | 2020-03-19 08:02 | PN ---
Date of Progress Note: 03/13/2020 Subjective: The patient was seen for followup in the morning. No new complaints or problems reporte d by the patient. She was overall feeling better than yesterday. Objective: Vital Signs: Reviewed. HEENT: Unremarkable. Lungs: Clear to auscultation, except rales noted in both lower lung dominguez, overall better than befo re. Heart: Sounds normal. Presence of systolic murmur, unchanged. Abdomen: Soft. Bowel sounds normal. No guarding, rigidity, tenderness, or distention. Extremities: Bilateral leg edema present, but better than yesterday. Laboratory Data: White count 4.5, hemoglobin 9.7, platelets 155. INR 1.42. Sodium 145, potassium 4 .4, chloride 111, bicarb 32, BUN 46, creatinine 1.95, glucose 86, and ferritin level low at 7. Serum iron 21, TIBC 365, B12 424, folic acid 14, TSH 6.7. Echocardiogram shows normal ejection fraction 7 2% and shows severe pulmonary hypertension. Impression: 1.Congestive heart failure. 2.Severe pulmonary hypertension. 3.Anemia, iron deficiency. 4.Chronic kidney disease, stage 4. 5.Hypothyroidism. Plan: We will go ahead and continue current medications. Ambulation was encouraged. We will contin ue oxygen, continue Lasix, and possible discharge to go home tomorrow. Details were discussed with the patient. MARY/MODL Voice ID: [id number] Report ID: [id number]
--- NOTE | 2020-03-19 08:18 | HP ---
Date of Admission: 03/12/2020 Chief Complaint: Shortness of breath. History Of Present Illness: This is a 74-year-old female patient, who came into emergency room with complaints of shortness of breath. She denies any fever, chills. She has generalized weakness with shortness of breath. Denies any problems with any expectoration. No exposure to COVID-19 patient. The patient came into emergency room, she was noted to have some moderate respiratory distress and af ter she was evaluated in the emergency room, she was admitted to the hospital with congestive heart f ailure problem. She was started on IV diuretic therapy and has shown improvement with use of IV diur etic therapy. Allergies: TO CODEINE CAUSING NAUSEA, DEMEROL CAUSING NAUSEA, SULFA CAUSING NAUSEA. Medications: List reviewed. Review of Systems: Respiratory: As mentioned above. All other systems reviewed and negative. Past Medical History: Significant for hypothyroidism, COPD, hypertension, hyperlipidemia, ventricula r septal defect, chronic kidney disease, anemia due to chronic kidney disease, depression. Past Surgical History: Pacemaker placement, repair of VSD, and cholecystectomy. Family History: Father; hypertension, Parkinson disease. Mother; COPD. Brother; pancreatic cancer, COPD. Social History: Negative for smoking and alcohol use. Physical Examination: Vital Signs: Temperature 97.2, pulse 62, respiratory rate 18, blood pressure 188/86, height 5 feet 3 inches, weight 123 pounds. General: Awake, alert, oriented, not in distress. HEENT: Head atraumatic, normocephalic. Conjunctivae nonerythematous. Sclerae white. Mouth, no thr ush or edema noted. Ears/Nose, no mass, lesion, discharge noted. Neck: Supple. No JVD, lymph nodes, bruit, thyromegaly noted. Lungs: Presence of rales noted in bilateral lower lung region. Not in any respiratory distress. Heart: Presence of systolic murmur, unchanged from before. Abdomen: Soft, bowel sounds normal. No guarding, rigidity, tenderness, mass, hepatosplenomegaly, dis tention, or bruit noted. Extremities: Bilateral leg edema present. Skin: No rash, ulcer, cellulitis. Lymphatics: No lymph node enlargement in neck, supraclavicular, infraclavicular region. Neuro: No focal neurological deficit. Chest: Unremarkable. External Genitalia: Deferred. Rectal: Deferred. Laboratory Data: Yesterday; INR 1.26 with WBC 6.4, hemoglobin 10.9, platelets 199 and this was when she first came into ER. This morning; white count 5.6, hemoglobin 10, platelets 178. Yesterday; sod ium 143, potassium 4.6, chloride 111, bicarb 26, BUN 49, creatinine 2.34, glucose 104. Liver functio n tests unremarkable. Troponin less than 0.02. ProBNP 3881. COVID-19 test came back negative. Thi s morning; sodium 144, potassium 4.7, chloride 111, bicarb 28, BUN 48, creatinine 2.15, glucose 89. Chest x-ray shows changes of congestive heart failure. Impression: 1.Congestive heart failure. 2.Hypertension. 3.Chronic anticoagulation therapy. 4.Chronic kidney disease. 5.Anemia due to chronic kidney disease. 6.Hyperlipidemia. 7.Ventricular septal defect. 8.Chronic obstructive pulmonary disease. 9.Hypothyroidism. 10.Depression. Plan: We will admit the patient to hospital for further evaluation and management of this problem. The patient is appropriate for inpatient and is expected to spend 2 midnights in hospital. We will g o ahead and continue IV Lasix, monitor electrolytes. Echocardiogram will be done today, we will foll ow up on that. Home medications will be continued and she is on continuous home oxygen so we will co ntinue that. Details and plan of treatment discussed with her. We will continue her warfarin that s he takes normally and monitor her PT/INR tomorrow. MARY/MODL Voice ID: [id number]
--- NOTE | 2020-03-19 08:27 | DS ---
Date of Discharge: 03/14/2020 Physical Examination: General: The patient was seen for followup this morning. No new complaints or problems reported by her. She was lying in bed, not in distress. Vital Signs: Reviewed. HEENT: Examination unremarkable. Lungs: Clear to auscultation. No rales. Not in respiratory distress. Heart: Sounds normal. Abdomen: Soft. Bowel sounds normal. No guarding, rigidity, tenderness, or distention. Extremities: No leg edema. Discharge Diagnoses: 1.Congestive heart failure, chronic, diastolic, with acute exacerbation. 2.Severe pulmonary hypertension. 3.Anemia, due to iron deficiency. 4.Chronic kidney disease stage 4. 5.Hypothyroidism. 6.Hypertension. 7.Hyperlipidemia. 8.Ventricular septal defect. 9.Chronic obstructive pulmonary disease. 10.Depression. Discharge Medications And Instructions: Continue all prior home medication except change Lasix 40 mg , patient to take 1 tablet by mouth daily. The patient was advised to continue her oxygen use all time and follow up at office next week on . Hospital Course: This is a 74-year-old pleasant female patient, admitted to the hospital with shortn ess of breath. Please see dictated H and P for more information. After the patient was evaluated in ER, she was admitted to the hospital with congestive heart failure and she was started on IV Lasix. She is on continuous home oxygen, which was continued. Home medications were continued as well. We monitored her electrolytes and renal function and her creatinine when she came in was 2.34. Last cr eatinine yesterday was 1.95. Anemia profile was done. It shows iron deficiency anemia with low ferr itin at 7, normal B12 and folic acid level. TSH was slightly elevated at 6.7. Last hemoglobin was 9 .7 yesterday. Initial hemoglobin was 10.9. There is no evidence of any active ongoing GI bleed, but I am considering she is on chronic anticoagulation therapy, there is a possibility of chronic gastro intestinal blood loss causing this iron deficiency anemia that we need to keep in mind, and we will p ursue further discussion and intervention on outpatient basis with her. Overall, her shortness of br eath problem has improved. Echocardiogram had shown normal ejection fraction of 72% with severe pulm onary hypertension, and I have discussed with her about followup with cerner analyst for pulmonary hyp ertension problem to see if there is any further intervention can be provided. She has a longstandin g history of pulmonary hypertension as she reports. MARY/MODL Voice ID: [id number] Report ID: [id number]
== END 2020-03-14 11:58 | disposition home or self-care (01) | DRG 291 ==
LOC: ER 18:02 → ERHOLD 19:48 → 2ND 22:55 → OBSVTOIN 03-12 19:14
PROVIDERS: ADMIT Internal Medicine; ATTEND Internal Medicine
DX: I13.0 Hypertensive heart and chronic kidney disease with heart failure and stage 1 through stage 4 chronic kidney disease, or unspecified chronic kidney disease (principal); I50.33 Acute on chronic diastolic (congestive) heart failure; N18.4 Chronic kidney disease, stage 4 (severe); Q21.0 Ventricular septal defect; I27.20 Pulmonary hypertension, unspecified; D50.9 Iron deficiency anemia, unspecified; E03.9 Hypothyroidism, unspecified; J44.9 Chronic obstructive pulmonary disease, unspecified; E78.5 Hyperlipidemia, unspecified; D63.1 Anemia in chronic kidney disease; F32.9 Major depressive disorder, single episode, unspecified; Z90.49 Acquired absence of other specified parts of digestive tract; Z79.01 Long term (current) use of anticoagulants; Z88.1 Allergy status to other antibiotic agents; Z88.5 Allergy status to narcotic agent; Z88.7 Allergy status to serum and vaccine; Z99.81 Dependence on supplemental oxygen; Z23 Encounter for immunization; Z20.828 Contact with and (suspected) exposure to other viral communicable diseases
CPT/HCPCS: 36415; 71045; 80048; 80076; 82607; 82728; 82746; 83540; 83735; 83880; 84439; 84443; 84466; 84484; 85025; 85610; 90471; 93005; 93306; 96374; 99285; G0378; J1940; Q2035; U0003

== ENCOUNTER 2020-08-24 12:16 | Inpatient (IN) | payer OTHER, BC ==
--- OUTSIDE RECORDS SUMMARY | 2020-08-24 14:03 | XMS REPORT | Continuity of Care Document ---
:1945 Author Organization [facility] t Address [address] [place] [address] Care Team Providers Name Role Phone Edelmira NORWOOD Primary Care Physician Analilia NORWOOD Attending Clinician Edwin NUNO Attending Clinician Payers Payer Name Policy Type Policy Effective Date Expiration Date Sour ce Number MEDICAREMEDICARE PART [id number] 2012 MD rBenden Davidson AND 00:00:00 [id number] 2013-P [id number] [place] [id number] 2012 MD Romeo calzada [facility] PPO 4 00:00:00 [id number] Problems Condition Condition Condition Status Onset Resolution Last Treating Co mments Source Name Details Category Date Date Treatment Clinician Date Mammograph Mammograph Disease Active M D y abnormal y abnormal 3-12 An derso 00:00: n 00 SOB SOB Disease Active [facility] (shortness (shortness 6-04 Assessmen Methodi of breath) of breath) 00:00: t & Plan: st 00 Formattin g of this note might be different from the original. Uses oxygen 2 LPM and doing well Sleep Sleep Disease Active [place] apnea, apnea, 6-04 Methodi obstructiv obstructiv 00:00: st e e 00 GERD GERD Disease Active [facility] (gastroeso (gastroeso 6-04 Assessmen Methodi phageal phageal 00:00: t & Plan: st reflux reflux 00 Formattin disease) disease) g of this note might be different from the original. Re-start reflux medsPatie nt advised to Follow Aspiratio n precautio ns Elevate head of the bed by 4-5 inchesWai t at least 3 hours between meals and laying down SSS (sick SSS (sick Disease Active Reanna ston sinus sinus 09-13 Methodi syndrome) syndrome) 00:00: st 00 Stage 3 Stage 3 Disease Active [place] chronic chronic 09-06 Methodi kidney kidney 00:00: st disease disease 00 Urinary Urinary Disease Active [place] tract tract 09-06 Methodi infection infection 00:00: st Essential Essential Disease Active [facility] Reanna ston hypertensi hypertensi 09-06 Assessmen Methodi on on 00:00: t & Plan: st 00 Formattin g of this note might be different from the original. 160/60 mmhgBharathi carter checked right arm f/u with her pcp Bradycardi Bradycardi Disease Active [place] a a 4-05 Methodi 00:00: st 00 rn long term care rn long term care Disease Active [facility] Reanna ston current current -05 Assessmen Metho di use of use of 00:00: t & Plan: st anticoagul anticoagul 00 Formattin ant ant g of this therapy therapy note might be different from the original. Warfarin 2 mg daily No IVC filterHx PE Chronic Chronic Disease Active [facility] obstructiv obstructiv 4-05 Assessmen Methodi e e 00:00: t & Plan: st pulmonary pulmonary 00 Formattin disease disease g of this note might be different from the original. COPD is unchanged .Discusse d monitorin g symptoms and use of quick-rel ief medicatio ns and contactin g us early in the course of exacerbat ions.Medi cation changes per orders. Copd teaching by Seymour and teach her adequate technique Patient advised to use adviar twice a day and rinse her mouth after each use History of History of Disease Active [place] deep deep 4-05 Methodi venous venous 00:00: st thrombosis thrombosis 00 Hyperkalem Hyperkalem Disease Active [place] ia ia 08-17 Methodi 00:00: st 00 Pulmonary Pulmonary Disease Active Reanna ston edema edema 08-17 Methodi 00:00: st 00 Pulmonary Pulmonary Disease Active Last Reanna ston hypertensi hypertensi 08-17 Assessmen Methodi on on 00:00: t & Plan: st 00 Formattin g of this note might be different from the original. No gradient across pulmonary vasculatu reGood cardiac outputs/p pacemaker placement No need for PH - pulmonary vasodilat or therapy Syncope Syncope Disease Active [place] 08-17 Methodi 00:00: st 00 Elevated Elevated Disease Active [place] internatio internatio 10-12 Me thodi nal nal 00:00: st normalized normalized 00 ratio ratio (INR) (INR) Bradycardi Bradycardi Disease Active Overview : MD davidson a 1- s/p Anderso 00:00: pacemaker n 00 Ventricula Ventricula Disease Active Overview : r septal r septal 1- s/p VSD Romeo so defect defect 00:00: [...] 00 s to drug Codeine Propensi Active [place] ty to 4-25 Methodi adverse 00:00: st reaction 00 s to drug [facility]idi [facility] adverse 00:[facility]: st reaction 00 s to drug Sulfa Propensi Active [place] (Sulfona ty to 4-25 Methodi mide adverse 00:00: st Antibiot reaction 00 ics) s to drug Family History Family Member Diagnosis Comments Start Date Stop Date Source Natural father Mesothelioma Romeo son Natural father Hypertension [place] Scientologist Other Pancreatic cancer MD [place] rson Family member Breast cancer Romeo son Family member Ovarian cancer MD [place] you Natural mother Hypertension [place] Scientologist Social History Social Habit Start Date Stop Date Quantity Comments Source History [facility] MD [place] Alcohol Std Drinks History [facility] MD [place] Alcohol Binge Tobacco use and 2019-07-25 2019-07-25 Never used MD Alonso on exposure 00:00:00 00:00:00 Alcohol intake 2019-07-25 2019-07-25 Lifetime MD Viviana hernandez 00:00:00 00:00:00 non-drinker (finding) History [facility] 2019-07-25 2019-07-25 1 MD [place] Alcohol Frequency 00:00:00 00:00:00 Sex Ass[birth year] [facility] ethodist 00:00:00 00:00:00 Smoking Status Start Date Stop Date Source Never smoker MD [place] Medications Ordered Filled Start Stop Current Ordering Indication Dosage Frequency Signature Comments Components Source Medication Medication Date Date Medication? Clinician (SIG) Name Name doxazosin 2019-0 Yes 4mg Take 4 mg MD (CARDURA) [...] rso mg tablet 19:13: n 09 levothyroxi 2019-0 Yes 88ug Take 88 MD ne 3-12 mcg by Aryerscelestina (SYNTHROID, 19:13: mouth. n LEVOTHROID) 09 88 mcg tablet TART FERNANDEZ 2020-0 Yes 1200mg Take 1,200 MD EXTRACT 3-12 mg by Anderso ORAL 19:13: mouth. n 08 cholecalcif 2020-0 Yes [id number][i Take MD johana, 3-12 U] 15,000 Anderso [...] tablet 00:00: mouth n 00 daily. hydrALAZINE 2020-0 Yes 1{tbl} Take 1 MD (APRESOLINE 2-03 tablet by And erso ) 50 mg 00:00: mouth n tablet 00 twice daily. citalopram 2018-0 Yes 10mg QD Take 10 mg [place] (CeleXA) 20 6-04 by mouth Meth jason MG tablet 14:38: daily. st 58 calcitriol 2018-0 Yes .25ug QD Take 0.25 [place] (ROCALTROL) 6-04 mcg by Method i 0.25 MCG 14:38: mouth st capsule 58 daily. cholecalcif 2018-0 Yes [id number] Q30D Take [place] johana, 6-04 50,000 Methodi vitamin D3, 14:38: Units by st (VITAMIN 58 mouth D3) 1,000 every 30 unit tablet (thirty) days. hydrALAZINE 2018-0 Yes 25mg Q.[id number] Take 25 mg [place] (APRESOLINE 6-04 [id number] by mouth 3 Methodi ) 25 MG 14:38: 3D (three) st tablet 58 times a day. amLODIPine 2018-0 Yes 5mg Q.5D Take 5 mg [place] (NORVASC) 5 6-04 by mouth 2 Me thodi mg tablet 14:38: (two) st 58 times a day. furosemide 2018-0 Yes 40mg Take 40 mg [place] (LASIX) 40 6-04 by mouth Metho di mg tablet 14:38: as needed. st 58 For swelling levothyroxi 2018-0 Yes 88ug QD Take 88 Reanna ston ne 6-04 mcg by Methodi (SYNTHROID, 14:38: mouth st LEVOXYL) 88 58 every mcg tablet morning. albuterol 2018-0 Yes 2{puff} Q.[id number] Inhale 2 [place] (PROAIR 6-04 [id number] puffs 3 Met hodi HFA,PROVENT 14:38: 3D (three) st [place] 58 times a HFA,VENTOLI day. N HFA) 90 mcg/actuati on inhaler warfarin 2018-0 Yes 2mg QD Take 2 mg [place] (COUMADIN) 6-04 by mouth Metho di 2 MG tablet 14:38: daily. st 58 fluticasone 2018-0 Yes 2{puff} QD Inhale 2 [place] -salmeterol 6-04 puffs Methodi (ADVAIR) 14:38: daily. st 250-50 58 mcg/dose DISKUS pantoprazol 2018-0 Yes BEFORE [place] e 4-05 BREAKFAST Methodi (PROTONIX) 00:00: st 40 MG EC 00 tablet warfarin 2016-0 Yes DAILY AT [place] (COUMADIN) 5-30 1700 Methodi 2 MG tablet 00:00: st 00 Procedures This patient has no known procedures. Plan of Care Planned Activity Planned Date Details Comments Source Future Scheduled 2020-12-13 INFLUENZA VACCINE Geeta n Scientologist Test 00:00:00 [code = INFLUENZA VACCINE] Future Scheduled 1997 BREAST CANCER [place] Me thodist Test 00:00:00 SCREENING [code = BREAST CANCER SCREENING] Future Scheduled 1997 COLONOSCOPY SCREENING [place] razo Scientologist Test 00:00:00 [code = COLONOSCOPY SCREENING] Future Scheduled 1997 SHINGLES VACCINES (#1) Mayelin delarosa Scientologist Test 00:00:00 [code = SHINGLES VACCINES (#1)] Future Scheduled 1963 COVID-19 VACCINE (1) Reanna castanon Scientologist Test 00:00:00 [code = COVID-19 VACCINE (1)] Future Scheduled 1953 65+ PNEUMOCOCCAL [place] Scientologist Test 00:00:00 VACCINE (1 of 4 - PCV13) [code = 65+ PNEUMOCOCCAL VACCINE (1 of 4 - PCV13)] Results This patient has no known results.
[2020-08-24 15:17] VITALS: BMI 24.2
[2020-08-24 16:33] LABS: Absolute Lymphocytes (CBC) 1.1 K/uL (0.7-4.9); Basophils % 0.8 % (0-1.3); Hematocrit 31.1 % (36.0-45.0); Lymphocytes % 21.1 % (15.3-44.8); MPV 10.4 fL (7.6-11.3); RBC Red Blood Cell Count 3.82 M/uL (3.86-4.86)
[2020-08-24 16:53] LABS: Albumin 2.9 g/dL (3.4-5.0); Bilirubin Total 0.4 mg/dL (0.2-1.0); Magnesium 2.1 mg/dL (1.8-2.4); Potassium 4.7 mmol/L (3.5-5.1)
[2020-08-24 16:56] LABS: Protime INR 2.34
[2020-08-24] MEDS ORDERED: FUROSEMIDE 20 MG/ 2ML VIAL IV SCH (17:00)
--- NOTE | 2020-08-24 17:19 | RAD REPORT ---
EXAM DESCRIPTION: RAD - Chest Pa And Lat (2 Views) - 08/24/2020 4:48 pm CLINICAL HISTORY: dyspnea COMPARISON: February 2020 TECHNIQUE: Frontal and lateral views of the chest were obtained. FINDINGS: The lungs are fibrotic as a baseline with no peripheral mass or consolidations seen. Small to moderate bilateral pleural effusions are present. Interstitial pattern is probably increased over baseline. Pacemaker is in place. Sternotomy wires are in place. Heart size is upper normal to slig htly enlarged, similar to comparison. No pneumothorax. No acute bony finding noted. No aortic abnorm ality. IMPRESSION: Small to moderate bilateral pleural effusions are present similar to slightly smaller th an the comparison study. Heart size is prominent. Interstitial markings are prominent. Collectively findings would support CHF or volume overload.
[2020-08-24] MEDS ORDERED: WARFARIN SODIUM 2 MG TAB PO ONE (20:00)
[2020-08-24] MEDS: AMLODIPINE 5 MG TAB PO SCH (20:36)
[2020-08-24] MEDS: HYDRALAZINE HCL 25 MG TABLET PO SCH (20:36)
[2020-08-25] MEDS: LEVOTHYROXINE SOD 0.1 MG TAB PO SCH (05:29)
[2020-08-25 05:49] LABS: Protime INR 2.55
[2020-08-25 06:00] LABS: Potassium 4.5 mmol/L (3.5-5.1)
[2020-08-25] MEDS: HYDRALAZINE HCL 25 MG TABLET PO SCH ×2 (09:49→21:26)
[2020-08-25] MEDS: FUROSEMIDE 40 MG/4 ML VIAL IV SCH ×2 (09:49→16:58)
[2020-08-25] MEDS: VALSARTAN 160 MG TAB PO SCH (09:49)
[2020-08-25] MEDS: AMLODIPINE 5 MG TAB PO SCH ×2 (09:50→21:26)
[2020-08-25] MEDS: FAMOTIDINE 20 MG TAB PO SCH (09:50)
[2020-08-25] MEDS: CITALOPRAM 10 MG TABLET PO SCH (09:50)
--- NOTE | 2020-08-25 15:38 | HP ---
Date of Admission: 08/24/2020 Chief Complaint: Shortness of breath, low oxygen and weight gain. History Of Present Illness: Ms. Dill is a pleasant 75-year-old female patient who came to see jesus garibay for her regular followup visit and prior to seeing me today, she saw Dr. Hamilton. Her oxygen satu ration with 2 L nasal cannula oxygen at his office was 78%. The patient reported that Dr. Hamilton s uggested to change her furosemide and stop furosemide and start her on spironolactone. When she came to see me, her oxygen saturation was 80% to 81%. She was not in any respiratory distress, but she r eported that her weight lately has gone up. She is having more swelling and increasing shortness of breath. After I evaluated her, I recommended her to be admitted to the hospital and when she agreed, arrangements were made for her to be directly admitted to the hospital. Allergies: TO CODEINE CAUSING NAUSEA, DEMEROL CAUSING NAUSEA AND SULFA ALSO CAUSING NAUSEA. Medications: Amlodipine 5 mg 2 times a day; citalopram 10 mg p.o. daily with breakfast; calcitriol 0 .25 mcg daily; famotidine 20 mg p.o. daily at bedtime; ferrous fumarate 324 mg p.o. daily; Angelika 18 0 mg p.o. daily as needed for allergies; Advair 500/50 one puff 2 times a day; warfarin 1 mg tablet, she takes 2 tablets daily; olmesartan 40 mg daily; levothyroxine 100 mcg p.o. daily; hydralazine 50 m g 1.5 tablets, so total dose 75 mg 2 times a day and furosemide 40 mg p.o. daily. Review of Systems: Cardiovascular: As mentioned above. Respiratory: As mentioned above. All other systems reviewed and negative. Past Medical History: Significant for hypothyroidism, COPD, hypertension, hyperlipidemia, ventricula r septal defect, chronic kidney disease stage 4, anemia due to chronic kidney disease, depression, ch ronic diastolic congestive heart failure, iron deficiency anemia, pulmonary hypertension due to left heart disease. Past Surgical History: VSD repair, pacemaker placement, cholecystectomy. Family History: Father had Parkinson disease and hypertension. Mother, COPD. Brother had pancreati c cancer and COPD. Social History: Negative for smoking and alcohol use. Physical Examination: Vital signs: When the patient was seen at office, oxygen saturation was 80% to 81%. Blood pressure was 179/61, pulse 63, temperature 96.9, respiratory rate 18, weight 136 pounds, height 63 inches. He r oxygen saturation 81% on room air. General: Awake, alert, oriented, not in distress. HEENT: Head atraumatic, normocephalic. Conjunctivae nonerythematous. Sclerae white. Mouth, no thr ush or edema noted. Ears/Nose, no mass, lesion, discharge noted. Neck: Supple. No JVD, lymph nodes, bruit, thyromegaly noted. Lungs: Diminished air entry in lower half of both lung dominguez with presence of rales in lower lung r egion. Not using any accessory muscles of respiration. Heart: Presence of systolic murmur, unchanged from before. No gallop. Abdomen: Soft, bowel sounds normal. No guarding, rigidity, tenderness, mass, hepatosplenomegaly, dis tention, or bruit noted. Extremities: Bilateral leg edema. Skin: No rash, ulcer, cellulitis. Lymphatics: No lymph node enlargement in neck, supraclavicular, infraclavicular region. Neuro: No focal neurological deficit. Chest: Unremarkable. External Genitalia: Deferred. Rectal: Deferred. Labs: White count 5.4, hemoglobin 9.7, platelets 174. Sodium 142, potassium 4.7, chloride 108, bica rb 30, BUN 36, creatinine 2.15, glucose 95. INR 2.34. Liver function tests normal. COVID-19 test n egative and chest x-ray shows small to moderate bilateral pleural effusion with increased lung markin gs in both lung dominguez. Impression: 1.Congestive heart failure, chronic, diastolic, with acute exacerbation. 2.Pulmonary hypertension with left heart disease. 3.Iron deficiency anemia. 4.Chronic kidney disease stage 4. 5.Hypertension. 6.Hyperlipidemia. 7.Hypothyroidism. 8.Chronic anticoagulation therapy. Plan: Admit the patient to hospital for further evaluation and management of this problem. The [facility] ent is appropriate for inpatient and is expected to spend 2 midnights in hospital. Home medications will be continued per order. We will go ahead and start the patient on IV Lasix, monitor intake outp ut, daily weight monitor electrolyte, renal function and her INR. We will get echo with Doppler done . Last echocardiogram was done about 6 months ago in February of last year. Results reviewed. Kamari nue her oxygen therapy and I will see her tomorrow for followup. Details and plan of treatment discu ssed with the patient and her who was at bedside. MARY/MODL Voice ID: [id number]
[2020-08-25] MEDS: WARFARIN SODIUM 2 MG TAB PO SCH (16:58)
[2020-08-26 04:54] LABS: Absolute Lymphocytes (CBC) 1.2 K/uL (0.7-4.9); Basophils % 1.2 % (0-1.3); Hematocrit 28.5 % (36.0-45.0); Lymphocytes % 24.2 % (15.3-44.8); MPV 10.2 fL (7.6-11.3); RBC Red Blood Cell Count 3.53 M/uL (3.86-4.86)
[2020-08-26 05:10] LABS: Protime INR 2.73
[2020-08-26] MEDS: LEVOTHYROXINE SOD 0.1 MG TAB PO SCH (05:14)
[2020-08-26 05:15] LABS: Magnesium 1.9 mg/dL (1.8-2.4); Potassium 4.9 mmol/L (3.5-5.1)
--- NOTE | 2020-08-26 06:55 | PN ---
Date of Progress Note: 08/25/2020 Subjective: The patient was seen this morning for followup. She was lying in bed not in distress. Reports no new complaints. No chest pain. Shortness of breath is little better as she says. Objective: Vital signs: Reviewed HEENT: Unremarkable. Lungs: Bilateral good equal entry except diminished air entry in the lower half of both lung dominguez with some rales, not using any accessory muscles of respiration. Cardiac: Heart sounds normal. Presence of systolic murmur unchanged. Abdomen: Soft, bowel sounds normal. No guarding, rigidity, tenderness, or distention. Extremities: Bilateral leg edema present, but better today than yesterday. Skin: Brown discoloration of skin involving lower half of both legs, chronic. No open wound. No ev idence of any skin infection. Laboratory Data: Sodium 141, potassium 4.5, chloride 108, bicarb 30, BUN 35, creatinine 2.07, glucos e 82. ProBNP 3163. Impression: 1.Congestive heart failure, chronic, diastolic, with acute exacerbation. 2.Pulmonary hypertension due to left heart disease. 3.Hypertension. 4.Chronic kidney disease stage 4. Plan: We will go ahead and increase the dose of Lasix from 20 mg 2 times a day to 40 mg 2 times a da y intravenously. Monitor intake, output, daily weight, electrolyte and renal function. We will cont inue current warfarin. Monitor PT/INR. Echo with Doppler will be done and I will see her tomorrow f or followup. We will go ahead and request consultation from Dr. Raygoza and details were discussed with him. MARY/MODL Voice ID: [id number] Report ID: [id number]
[2020-08-26 07:32] LABS: Ferritin 12.6 ng/mL (8-388); Folic Acid, (Folate) 11.8 ng/mL (3.1-17.5)
--- NOTE | 2020-08-26 07:33 | RAD REPORT ---
EXAM DESCRIPTION: RAD - Chest Pa And Lat (2 Views) - 08/26/2020 7:04 am CLINICAL HISTORY: CHF COMPARISON: August 24 TECHNIQUE: Frontal and lateral views of the chest were obtained. FINDINGS: The lungs are underinflated compared to the prior study. This accentuates the interstitial opacification pattern. Interstitial markings are diffusely prominent. Cardiac silhouette remains pro minent. Pacemaker is in place. Right greater than left pleural effusions are present. Right-sided pl eural effusion is questionably larger than the comparison. No acute bony finding noted. No aortic ab normality. IMPRESSION: Diffusely prominent interstitial pattern, accentuated by shallow inspiration, shows no i mprovement since August 24. Bilateral pleural effusions are present with right-side questionably larger than the comparison.
--- NOTE | 2020-08-26 08:09 | ECHO ---
HEIGHT: 5 ft 3 in WEIGHT: 130 lb 0 oz DATE OF STUDY: 08/25/[address]: John Raza MD 2-DIMENSIONAL: YES M.MODE: YES DOPPLER: YES COLOR FLOW: YES TDS: NO PORTABLE: NO DEFINITY: NO BUBBLE STUDY: NO DIAGNOSIS: CONGESTIVE HEART FAILURE CARDIAC HISTORY: CATHERIZATION: YES SURGERY: YES PROSTHETIC VALVE: NO PACEMAKER: YES MEASUREMENTS (cm) DIASTOLIC (NORMALS) SYSTOLIC (NORMALS) IVSd 1.0 (0.6-1.2) LA Diam 3.4 (1.9-4.0) LVEF 78% LVIDd 4.4 (3.5-5.7) LVIDs 2.4 (2.0-3.5) %FS 47% LVPWd 1.1 (0.6-1.2) Ao Diam 2..5 (2.0-3.7) 2 DIMENSIONAL ASSESSMENT: RIGHT ATRIUM: NORMAL LEFT ATRIUM: NORMAL RIGHT VENTRICLE: NORMAL LEFT VENTRICLE: NORMAL TRICUSPID VALVE: NORMAL MITRAL VALVE: MITRAL ANNULAR CALCIFICATION PULMONIC VALVE: NORMAL AORTIC VALVE: SCLEROSIS PERICARDIAL EFFUSION: NONE AORTIC ROOT: NORMAL LEFT VENTRICULAR WALL MOTION: NORMAL DOPPLER/COLOR FLOW: SEVERE PULMONARY HYPERTENSION. RIGHT VENTRICULAR SYSTOLIC PRESSURE 98 mmHg. COMMENTS: SEVERE PULMONARY HYPERTENSION. RIGHT VENTRICULAR SYSTOLIC PRESSURE 98 mmHg. NORMAL LEFT VENTRICULAR SIZE AND FUNCTION. MITRAL ANNULAR CALCIFICATION. AORTIC SCLEROSIS. TECHNOLOGIST: Shan CHANDRA
[2020-08-26] MEDS: VALSARTAN 160 MG TAB PO SCH (08:52)
[2020-08-26] MEDS: AMLODIPINE 5 MG TAB PO SCH ×2 (08:53→20:37)
[2020-08-26] MEDS: FUROSEMIDE 40 MG/4 ML VIAL IV SCH ×2 (08:53→16:37)
[2020-08-26] MEDS: CITALOPRAM 10 MG TABLET PO SCH (08:54)
[2020-08-26] MEDS: FAMOTIDINE 20 MG TAB PO SCH (08:54)
[2020-08-26] MEDS: HYDRALAZINE HCL 25 MG TABLET PO SCH ×2 (08:54→20:38)
[2020-08-26] MEDS: WARFARIN SODIUM 2 MG TAB PO SCH (16:38)
--- NOTE | 2020-08-26 22:19 | PN ---
Date of Progress Note: 08/26/2020 Subjective: The patient was seen this morning for followup. She was lying in bed, not in any distress. Denies any shortness of breath. Overall feels better than before. Objective: Vital Signs: Reviewed. HEENT: Examination unremarkable. Lungs: Bilateral good equal air entry. Her air entry in both lung dominguez has improved compared to yesterday. Still has some diminished air entry in the lower lung dominguez with some rales, but overall better than before. Not using any accessory muscles of respiration. Heart: Sounds normal. Presence of systolic murmur unchanged. Abdomen: Soft. Bowel sounds normal. No guarding, rigidity, tenderness, or distention. Extremities: Trace leg edema. Laboratory Data: White count 4.9, hemoglobin 9.1. INR 2.73. Sodium 143, potassium 4.9, chloride 107, bicarb 32, BUN 38, creatinine 2.06, glucose 82, magnesium 1.9. ProBNP 3060. Chest x-ray reviewed. Impression: 1. Congestive heart failure, chronic, diastolic, with acute exacerbation. 2. Anemia. 3. Chronic kidney disease stage 4. 4. Hypertension. Plan: We will go ahead and continue current medication. Continue IV Lasix. The patient is responding well and we will continue Lasix 40 mg IV every 12 hours. Monitor electrolytes, renal function. Continue oxygen. Follow up with motor overhauler and ambulation was encouraged. I will see her tomorrow for followup. Possible discharge to go home tomorrow. MARY/MODL Voice ID: [id number] Report ID: [id number] ADALGISA
[2020-08-27 06:17] LABS: Protime INR 2.73
[2020-08-27 06:22] LABS: Magnesium 1.9 mg/dL (1.8-2.4); Potassium 4.5 mmol/L (3.5-5.1)
[2020-08-27] MEDS: LEVOTHYROXINE SOD 0.1 MG TAB PO SCH (06:23)
[2020-08-27] MEDS: FUROSEMIDE 40 MG/4 ML VIAL IV SCH ×4 (09:00→17:24)
--- NOTE | 2020-08-27 09:06 | RAD REPORT ---
EXAM DESCRIPTION: RAD - Chest Pa And Lat (2 Views) - 08/27/2020 8:57 am CLINICAL HISTORY: CHF Chest pain. COMPARISON: Chest Pa And Lat (2 Views) dated 08/26/2020; Chest Pa And Lat (2 Views) dated 08/24/2020; Chest Single View dated 03/11/2020; Chest Single View dated 01/14/2020 FINDINGS: Mild interstitial pulmonary edema persists. Bilateral pleural are again seen unchanged. Th e heart is moderately enlarged. Dual lead pacer device is present sternotomy wires noted. IMPRESSION: Stable CHF versus volume overload pattern.
[2020-08-27] MEDS: AMLODIPINE 5 MG TAB PO SCH ×2 (09:36→20:37)
[2020-08-27] MEDS: HYDRALAZINE HCL 25 MG TABLET PO SCH ×2 (09:39→20:37)
[2020-08-27] MEDS: CITALOPRAM 10 MG TABLET PO SCH (09:41)
[2020-08-27] MEDS: VALSARTAN 160 MG TAB PO SCH (09:41)
[2020-08-27] MEDS: FAMOTIDINE 20 MG TAB PO SCH (09:41)
[2020-08-27] MEDS ORDERED: METOLAZONE 2.5 MG TABLET PO ONE (11:45)
[2020-08-27] MEDS: WARFARIN SODIUM 2 MG TAB PO SCH (17:24)
--- NOTE | 2020-08-27 21:56 | PN ---
Date of Progress Note: 08/27/2020 Subjective: The patient was seen this morning for followup, lying in bed, not in distress. Denies a ny shortness of breath during nighttime. Yesterday during daytime, she did not have any complaints a s she reports. Objective: Vital Signs: Reviewed. HEENT: Unremarkable. Lungs: Bilateral good equal air entry. Presence of rales noted in lower lung field, unchanged from yesterday. Not using any accessory muscles of respiration. Heart: Sounds normal. Presence of systolic murmur unchanged. Abdomen: Soft. Bowel sounds normal. No guarding, rigidity, tenderness, or distention. Extremities: Bilateral trace leg edema. Laboratory Data: Chest x-ray done today shows no changes compared to yesterday. Sodium 145, potassi um 4.5, chloride 105, bicarb 35, BUN 39, creatinine 2.07, glucose 82, magnesium 1.9. Impression: 1.Congestive heart failure, chronic, diastolic, with acute exacerbation. 2.Right-sided heart failure. 3.Pulmonary hypertension due to left heart disease. 4.Hypertension. 5.Chronic kidney disease stage 4. 6.Paroxysmal atrial fibrillation. 7.Chronic anticoagulation therapy. Plan: We will go ahead and continue her warfarin. We will repeat blood work tomorrow morning. Toda y, Lasix IV will be continued at 40 mg 2 times a day and 1 dose of metolazone 2.5 mg p.o. x1 dose was ordered. We will follow intake and output, and I will see her tomorrow for followup. Possible discharge to go home tomorrow. Details discussed with the patient. MARY/MODL Voice ID: [id number] Report ID: [id number]
[2020-08-28 05:10] LABS: Absolute Lymphocytes (CBC) 1.5 K/uL (0.7-4.9); Basophils % 0.8 % (0-1.3); Hematocrit 29.8 % (36.0-45.0); Lymphocytes % 29.6 % (15.3-44.8); MPV 10.1 fL (7.6-11.3); RBC Red Blood Cell Count 3.73 M/uL (3.86-4.86)
[2020-08-28 05:11] LABS: Protime INR 2.11
[2020-08-28 05:20] LABS: Potassium 4.3 mmol/L (3.5-5.1)
[2020-08-28 05:26] VITALS: BP 180/76
[2020-08-28] MEDS: LEVOTHYROXINE SOD 0.1 MG TAB PO SCH (05:44)
[2020-08-28] MEDS: VALSARTAN 160 MG TAB PO SCH (08:26)
[2020-08-28] MEDS: HYDRALAZINE HCL 25 MG TABLET PO SCH (08:26)
[2020-08-28] MEDS: AMLODIPINE 5 MG TAB PO SCH (08:27)
[2020-08-28] MEDS: CITALOPRAM 10 MG TABLET PO SCH (08:28)
[2020-08-28] MEDS: FAMOTIDINE 20 MG TAB PO SCH (08:28)
[2020-08-28] MEDS: FUROSEMIDE 40 MG/4 ML VIAL IV SCH (08:28)
[2020-08-28 09:01] VITALS: TEMP 98.8
[2020-08-28 11:13] VITALS: O2SAT 90
--- NOTE | 2020-08-28 20:38 | DS ---
Date of Discharge: 08/28/2020 Disposition: Discharged to go home. Physical Examination: HEENT: Unremarkable. Lungs: Bilateral good equal entry with presence of some rales in basal region, overall much better t pimentel before. Heart: Sounds normal. Abdomen: Soft. Bowel sounds normal. No guarding, rigidity, tenderness, or distention. Extremities: Trace leg edema. Laboratory Data: Upon admission, white count 5.4, hemoglobin 9.7, platelets 174. Today, white count 4.9, hemoglobin 9.5, platelets 145. INR today 2.11 and we did multiple INR during this hospitalizat ion and her INR has remained between 2 to 3. Last chemistry today, sodium 143, potassium 4.3, chlori de 101, bicarb 36, BUN 37, creatinine 2.15, glucose 85, magnesium 2. ProBNP 3020. Her serum iron wa s 26, TIBC 371, ferritin level 12.6, vitamin B12 level 282, folic acid level 11.9. Hospital Course: This is a pleasant 75-year-old female patient, admitted to the hospital with shortn ess of breath, low oxygen level, and weight gain. Please see dictated H and P for more information. The patient was evaluated at the office. She was admitted to the hospital with acute exacerbation o f her chronic diastolic congestive heart failure. She was given IV Lasix initially 20 mg every 12 ho urs and day after admission, the dose was increased to 40 mg. Yesterday, she was given 1 dose of met olazone 2.5 mg p.o. x1 dose. The patient states that she diuresed very well during day and night maría e. Overall, she feels better. Denies any paroxysmal nocturnal dyspnea or orthopnea. She is ambulat ing well in the room without any difficulties. Cardiology consultation was requested from Dr. Kady pruitt. Echocardiogram was done showing normal ejection fraction, but increased right ventricular pressur e. Overall, her condition has improved and she will be discharged to go home in stable condition wit h above-mentioned medications and instructions. Final Diagnoses: 1.Congestive heart failure, chronic, diastolic, with acute exacerbation. 2.Pulmonary hypertension with left heart disease. 3.Iron deficiency anemia. 4.Chronic kidney disease stage 4. 5.Hypertension. 6.Hyperlipidemia. 7.Hypothyroidism. 8.Chronic anticoagulation therapy. Discharge Medications And Instructions: 1.Continue prior home medication except increase furosemide 40 mg, the patient to take 1 tablet by m outh 2 times a day. 2.Start metolazone 2.5 mg, the patient to take 1 tablet by mouth every 2 weeks, started on and the patient to take this medication 30 minutes after your morning dose of furosemide. 3.Do not take spironolactone. 4.Follow up at my office next week on 09/02/2020 at 9 a.m. MARY/MODL Voice ID: [id number] Report ID: [id number]
--- NOTE | 2020-09-01 09:09 | CON ---
Date of Consultation: 08/26/2020 Reason For Consultation: Pulmonary hypertension and right-sided failure. History Of Present Illness: Ms. Dill is a 75-year-old woman. She is known to me from previous office visits in the past and admissions. She has had a history of VSD, status post VSD repair secon flip to severe pulmonary hypertension by did many years ago. She is known to have nor mal coronaries. She is known to have severe pulmonary hypertension that persisted even postoperative ly. She is on home oxygen. She got admitted with right-sided failure. Echocardiogram showed a norm al ejection fraction. No evidence of VSD leak, but her PA pressure was 99. She is being treated by Dr. Hamilton and Dr. Raza and I was consulted to see if have any other suggestions. She is fairly as ymptomatic now. She does not have any edema. She has her baseline shortness of breath. She has mickey quate O2 saturation on nasal cannula. Past Medical History: As stated above. Allergies: TO SULFA AND TETANUS. Review of Systems: Negative. Social History: Negative. Family History: Noncontributory. Medications: She is presently on Norvasc, Lasix, hydralazine, valsartan, Coumadin, and thyroid. Review of Systems: Negative. Social History: Negative. Family History: Noncontributory. Physical Examination: General: She appeared to be her usual self. No acute distress. Vital Signs: Stable. Afebrile. HEENT: Negative. Neck: Supple with no bruit. Chest: Clear. Cardiac: Revealed a very loud 2/6 systolic ejection murmur at the left second intercostal space that did not radiate. Abdomen: Benign. Extremities: Revealed no clubbing, cyanosis, or edema. Diagnostic Data: She has a paced EKG rhythm. Creatinine was 2.07. O2 saturation was 91% on 4 L. H er hemoglobin was 9.1. Impression And Plan: Severe pulmonary hypertension secondary to history of ventricular septal defect , status post repair. Echocardiogram did not show any leaks in the VSD site. Her PA pressure was 99 . She has some right-sided failure. I think the mainstay of therapy is a calcium channel irina, h ydralazine, consider the use of Isordil. She is on diuretic. We need to watch her kidney function. I am not sure if we need to continue her valsartan. Maybe replace that with isosorbide that may hel p better with right-sided failure. Continue her Coumadin. Continue Dr. Hamilton's suggestion. Cont inue to monitor her O2 saturation and creatinine. I will discuss the case further with Dr. Raza. RENUKA/MARCO Voice ID: [id number] Report ID: [id number]
== END 2020-08-28 11:00 | disposition home or self-care (01) | DRG 291 ==
LOC: 2ND 13:59
PROVIDERS: ADMIT Internal Medicine; ATTEND Internal Medicine
DX: I13.0 Hypertensive heart and chronic kidney disease with heart failure and stage 1 through stage 4 chronic kidney disease, or unspecified chronic kidney disease (principal); I50.33 Acute on chronic diastolic (congestive) heart failure; N18.4 Chronic kidney disease, stage 4 (severe); J44.9 Chronic obstructive pulmonary disease, unspecified; I27.22 Pulmonary hypertension due to left heart disease; E78.5 Hyperlipidemia, unspecified; I50.810 Right heart failure, unspecified; D50.9 Iron deficiency anemia, unspecified; I48.0 Paroxysmal atrial fibrillation; E03.9 Hypothyroidism, unspecified; Z88.1 Allergy status to other antibiotic agents; Z79.890 Hormone replacement therapy; Z79.01 Long term (current) use of anticoagulants; Z90.49 Acquired absence of other specified parts of digestive tract; Z95.810 Presence of automatic (implantable) cardiac defibrillator; Z88.7 Allergy status to serum and vaccine; Z99.81 Dependence on supplemental oxygen; Z79.899 Other long term (current) drug therapy; Z88.5 Allergy status to narcotic agent; Z20.822 Contact with and (suspected) exposure to COVID-19
CPT/HCPCS: 36415; 71046; 80048; 80053; 82607; 82728; 82746; 83540; 83735; 83880; 84466; 85025; 85610; 93306; J1940; U0003

== ENCOUNTER 2020-10-20 16:40 | Inpatient (IN) | payer OTHER, BC ==
--- OUTSIDE RECORDS SUMMARY | 2020-10-20 18:37 | XMS REPORT | Continuity of Care Document ---
:1945 Author Organization [facility] t Address [address] [place] [address] Care Team Providers Name Role Phone Edelmira NORWOOD Primary Care Physician Analilia NORWOOD Attending Clinician Edwin NUNO Attending Clinician Payers Payer Name Policy Type Policy Effective Date Expiration Date Sour ce Number MEDICAREMEDICARE PART [id number] 2012 MD Brenden Davidson AND 00:00:00 [id number] 2013-P [id number] [place], [place] 2012 MD Romeo calzada [facility] PPO 4 00:00:00 [id number] Problems Condition Condition Condition Status Onset Resolution Last Treating Co mments Source Name Details Category Date Date Treatment Clinician Date Mammograph Mammograph Disease Active M D y abnormal y abnormal 3-12 An derso 00:00: n 00 SOB SOB Disease Active [facility] (shortness (shortness 6-04 Assessmen Methodi of breath) of breath) 00:00: t & Plan: st 00 Formattin g of this note might be different from the original. Uses oxygen 2 LPM and doing well Sleep Sleep Disease Active [place] apnea, apnea, 6-04 Methodi obstructiv obstructiv 00:00: st e e 00 GERD GERD Disease Active [facility] (gastroeso (gastroeso 604 Assessmen Methodi phageal phageal 00:00: t & Plan: st reflux reflux Formattin disease) disease) g of this note [...] 00 Stage 3 Stage 3 Disease Active [place] chronic chronic 09-06 Methodi kidney kidney 00:00: st disease disease 00 Urinary Urinary Disease Active [place] tract tract 09-06 Methodi infection infection 00:00: st Essential Essential Disease Active [facility] Reanna ston hypertensi hypertensi 09-06 Assessmen Methodi on on 00:00: t & Plan: st 00 Formattin g of this note might be different from the original. 160/60 mmhgMannora carter checked right arm f/u with her pcp Syncope Syncope Disease Active [place] 05 Methodi 00:00: st Bradycardi Bradycardi Disease Active [place] 08-17 Methodi 00:00: st MCC MCC Disease Active [facility] Reanna ston current current 05 Assessmen Metho di use of use of 00:00: t & Plan: st anticoagul anticoagul 00 Formattin ant ant g of this therapy therapy note might be different from the original. Warfarin 2 mg daily No IVC filterHx PE Chronic Chronic Disease Active [place] kidney kidney - Methodi disease disease 00:00: st 00 Chronic Chronic Disease Active [facility] obstructiv obstructiv 05 Assessmen Methodi e e 00:00: t & [...] History of History of Disease Active [facility] 405 Methodi venous venous 00:00: st thrombosis thrombosis 00 Hyperkalem Hyperkalem Disease Active [facility] 4 Methodi 00:00: st 00 Hypothyroi Hypothyroi Disease Active H isaura dism dism 4 Methodi 00:00: st 00 Pulmonary Pulmonary Disease Active Reanna ston edema edema 08-17 Methodi 00:00: st 00 Pulmonary Pulmonary Disease Active Last Reanna ston hypertensi hypertensi 405 Assessmen Methodi on on 00:00: t & Plan: st 00 Formattin g of this note might be different from the original. No gradient across pulmonary vasculatu reGood cardiac outputs/p pacemaker placement No need for PH - pulmonary vasodilat or therapy Elevated Elevated Disease Active [place] intern[place] internatio 10-12 Al thodi nal nal 00:00: st normalized normalized 00 ratio ratio (INR) (INR) Bradycardi Bradycardi Disease Active Overview : MD stuart davidson 05-15 Formattin Anderso 00:00: g of this n 00 note might be different from the original. s/p pacemaker Ventricula Ventricula Disease Active Overview : r septal r septal 05-15 Formattin And erso defect defect 00:00: g of this n 00 note might be different from the original. s/p VSD repair Anemia of Anemia of Disease Active MD chronic chronic Anderso disease disease n Stenosis Stenosis Disease Active Overview: of of Formattin Anderso pulmonary pulmonary g of this n artery artery note might be different from the original. Requires 2L 02 at night time only. Dependence Dependence Disease Active M D on on Anderso nocturnal nocturnal n oxygen oxygen therapy therapy Hyperlipid Hyperlipid Disease Active M D emia emia Anderso n Hypertensi Hypertensi Disease Active M D on on Anderso n Depressive Depressive Disease Active M D disorder disorder Gavin o n Pulmonary Pulmonary Disease Active Overview: embolism embolism Formattin And erso g of this n note might be different from the original. on chronic coumadin Pulmonary Pulmonary Disease Active MD embolism embolism Gavin o on on n long-term long-term anticoagul anticoagul ation ation therapy therapy Allergies, Adverse Reactions, Alerts Allergy Allergy Status Severity Reaction(s) Onset Inactive Treating Comm ents Source Name Type Date Date Clinician Tetanus Propensi Active Other (See Reanna ston Immune ty to Comments) 09-13 Methodi Globulin adverse 00:00: st reaction 00 s to drug Codeine Propensi Active [place] ty to 4-25 Methodi adverse 00:00: st reaction 00 s to drug Meperidi Propensi Active [place] ty to 25 Methodi adverse 00:00: st reaction 00 s to drug Sulfa Propensi Active [place] (Sulfona ty to 25 Methodi mide adverse 00:00: st Antibiot reaction 00 ics) s to drug Family History Family Member Diagnosis Comments Start Date Stop Date Source Natural father Mesothelioma Romeo son Natural father Hypertension [place] [facility] Other Pancreatic cancer Chap[place] rson Family member Breast cancer Romeo son Family member Ovarian cancer MD [place] rsgisella Natural mother Hypertension [place] [facility] Social History Social Habit Start Date Stop Date Quantity Comments Source History [facility] [place] Alcohol Std Drinks History [facility] MD [place] Alcohol Binge History [facility] 2019-07-25 2019-07-25 1 MD [place] Alcohol Frequency 00:00:00 00:00:00 Tobacco use and 2017-10-16 2017-10-16 Never used [facility] ethodist exposure 00:00:00 00:00:00 Alcohol intake 2017-10-16 2017-10-16 Current [facility]odist 00:00:00 00:00:00 non-drinker of alcohol (finding) Sex Ass[birth year] [facility] ethodist 00:00:00 00:00:00 Smoking Status Start Date Stop Date Source Never smoker [facility] t Medications Ordered Filled Start Stop Current Ordering Indication Dosage Frequency Signature Comments Components Source Medication Medication Date Date Medication? Clinician (SIG) Name Name doxazosin Yes 4mg Take 4 mg MD (CARDURA) 4 3-12 by mouth [place] rso mg tablet 19:13: twice n 09 daily. fluticasone 2019- Yes 2{puff} Inhale 2 MD propionate- 3-12 [...] 19:13: mouth. n 08 cholecalcif 2020-0 Yes [id number][i Take MD johana, 3-12 U] 15,000 Anderso [...] st capsule 58 daily. cholecalcif 2018-0 Yes [id number] Q30D Take [place] johana, 6-04 50,000 Methodi vitamin D3, 14:38: Units by st (VITAMIN 58 mouth D3) 1,000 every 30 unit tablet (thirty) days. hydrALAZINE 2018-0 Yes 25mg [id number] Take 25 mg [place] (APRESOLINE 6-04 [id number] by mouth 3 Methodi ) 25 MG [...] as needed. st 58 For swelling levothyroxi 2017-0 Yes 88ug QD Take 88 Reanna ston ne 6-04 mcg by Methodi (SYNTHROID, 14:38: mouth st LEVOXYL) 88 58 every mcg tablet morning. albuterol 2018-0 Yes 2{puff} Q.[id number] Inhale 2 [place] (PROAIR 6-04 [id number] puffs 3 Met hodi HFA,PROVENT 14:38: 3D [...] Comments Source Future Scheduled 2020-12-13 INFLUENZA VACCINE [place] [facility] 00:00:00 [code = INFLUENZA VACCINE] Future Scheduled 1997 BREAST CANCER [facility]ist Test 00:00:00 SCREENING [code = BREAST CANCER SCREENING] Future Scheduled 1997 COLONOSCOPY SCREENING [facility] Test 00:00:00 [code = COLONOSCOPY SCREENING] Future Scheduled 1997 SHINGLES VACCINES (#1) [place] [facility] Test 00:00:00 [code = SHINGLES VACCINES (#1)] Future Scheduled 1959 COVID-19 VACCINE (1) [facility] Test 00:00:00 [code = COVID-19 VACCINE (1)] Future Scheduled 1951 65+ PNEUMOCOCCAL [place] [facility] Test 00:00:00 VACCINE (1 of 4 - PCV13) [code = 65+ PNEUMOCOCCAL VACCINE (1 of 4 - PCV13)] Results This patient has no known results.
[2020-10-20 20:04] LABS: Absolute Lymphocytes (CBC) 1.6 K/uL (0.7-4.9); Basophils % 1.3 % (0-1.3); Hematocrit 32.1 % (36.0-45.0); Lymphocytes % 22.1 % (15.3-44.8); MPV 10.3 fL (7.6-11.3); RBC Red Blood Cell Count 4.02 M/uL (3.86-4.86)
[2020-10-20 20:14] LABS: Protime INR 5.46
--- NOTE | 2020-10-20 20:30 | RAD REPORT ---
EXAM DESCRIPTION: Amina Pa And Lat (2 Views)10/20/2020 8:24 pm CLINICAL HISTORY: Acute renal injury COMPARISON: August 2020 FINDINGS: Mild bilateral pulmonary opacities. The heart is mildly enlarged. Pacemaker leads are in place. Postsurgical changes involve the chest IMPRESSION: Mild CHF
[2020-10-20 20:44] LABS: Albumin 3.3 g/dL (3.4-5.0); Bilirubin Total 0.3 mg/dL (0.2-1.0); Potassium 5.4 mmol/L (3.5-5.1); Protein, Total 7.9 g/dL (6.4-8.2)
[2020-10-20] MEDS: NA CHLORIDE 0.9% 1,000 ML IV SCH (21:05)
[2020-10-20] MEDS ORDERED: ACETAMINOPHEN 500 MG TAB PO PRN (21:55)
[2020-10-20] MEDS ORDERED: SOD POLYSTYREN SUL 15 GM/60 ML UCUP PO ONE (21:55)
[2020-10-21] MEDS: LEVOTHYROXINE SOD 0.1 MG TAB PO SCH (06:50)
[2020-10-21] MEDS: NA CHLORIDE 0.9% 1,000 ML IV SCH ×2 (08:45→23:22)
--- NOTE | 2020-10-21 08:45 | RAD REPORT ---
EXAM DESCRIPTION: US - Abdomen Pelvis Scan US - 10/21/2020 8:07 am CLINICAL HISTORY: acute kidney injury COMPARISON: No comparisonsNone. TECHNIQUE: Sonographic evaluation of the kidneys was performed with measurements obtained and gross anatomic assessment performed.Doppler evaluation of the renal arteries, interlobar arteries and aorta performed. Waveforms and velocities were recorded. The renal artery ratios and resistive index heydi ues were calculated. FINDINGS: Both kidneys show thin hyperechoic renal cortical tissue indicating underlying medical jessica al disease. No hydronephrosis or solid mass lesions seen. A 17 millimeter lateral upper pole left jessica al cyst is present. This has a few low-level internal echoes which are believed to be more technical in nature. Simple cyst is still favored. Contracted urinary bladder shows no gross abnormality. Renal artery ratios are both well within normal range measuring 0.6 on the right and 0.2 on the left. No suspicious velocity value or waveform. Interlobar artery resistive index values measure 0.74 on the right and 0.85 on the left. Renal artery resistive index values range from 0.80-0.83 in value. Left resistive index value 0.88 distally. The proximal and mid portions of the left renal artery were too poorly visualized to allow accurate asses sment. IMPRESSION: Renal artery stenosis is not suspected. The renal artery ratios are well within normal r ana luisa. The proximal and mid portions of the left renal artery are not well visualized. However, this is not felt to alter the impression of no renal artery stenosis.
[2020-10-21] MEDS: FERROUS SULFATE 325 MG TAB PO SCH (08:46)
[2020-10-21] MEDS: FAMOTIDINE 20 MG TAB PO SCH (08:46)
[2020-10-21] MEDS: HYDRALAZINE HCL 10 MG TABLET PO SCH ×2 (08:46→21:26)
[2020-10-21] MEDS: CITALOPRAM 10 MG TABLET PO SCH (08:46)
[2020-10-21] MEDS: AMLODIPINE 5 MG TAB PO SCH ×2 (08:46→21:26)
[2020-10-21 11:24] LABS: Potassium 4.6 mmol/L (3.5-5.1)
[2020-10-21 11:48] LABS: Protime INR 4.67
--- NOTE | 2020-10-21 18:48 | HP ---
Date of Admission: 10/20/2020 Chief Complaint: Feeling weak. History Of Present Illness: A 75-year-old very pleasant female patient with multiple comorbidities. Has chronic diastolic congestive heart failure, left ventricular heart disease, prior history of VSD, on diuretic therapy. Recently was in the hospital a month ago or so with congestive heart failure problem. She had gained significant amount of weight at that time associated with swelling and shortness of breath. She was given IV diuretic therapy for maintenance diuretic therapy with furosemide during last hospital admission. She was also discharged to go home with metolazone 2.5 mg every 2 weeks. The patient responded very well to this diuretic therapy. Her swelling problem resolved. She lost quite a bit of weight, which was water weight and her baseline creatinine is always around 2 to 2.5. On September 02, her creatinine was 2.33. After this last hospital admission on 10/07/2020, her BUN was 123, creatinine 3.78 and at that time, the patient was advised to discontinue her metolazone. She was advised to stop her furosemide for 2 days and then to resume it and she was advised to get repeat blood work done on 10/19/2020 and that showed BUN and creatinine both going up with BUN 138, creatinine 4.33, and the patient was seen today and decision was made to admit her to the hospital with this acute kidney injury and worsening of renal function. The patient reports that she does not have good appetite. She is feeling weak. Denies any vomiting, diarrhea. No bleeding. She has shortness of breath with activity that has remained unchanged from last visit. Denies any chest pain. No fever. No chills. Allergies: TO CODEINE, DEMEROL, AND SULFA. Medications: Amlodipine 5 mg 2 times a day, calcitriol daily, citalopram 10 mg daily, famotidine 20 mg daily, ferrous fumarate 324 mg daily, hydralazine 50 mg takes 1-1/2 tablet 2 times a day, levothyroxine 100 mcg daily, warfarin 1 mg takes 2 tablets daily, olmesartan 40 mg daily, and furosemide 40 mg 2 times a day, Angelika 180 mg daily, hydralazine 50 mg takes 1-1/2 tablet 2 times a day, Advair inhaler 1 puff 2 times a day. Review of Systems: Constitutional: As mentioned above. Respiratory: As mentioned above. All other systems reviewed and negative. Past Medical History: Significant for hypothyroidism, COPD, hypertension, hyperlipidemia, ventricular septal defect, chronic kidney disease, anemia due to chronic kidney disease, and depression. Past Surgical History: Pacemaker placement, VSD repair, cholecystitis. Family History: Significant for father; hypertension, Parkinson disease. Mother, pancreatic cancer, COPD. Social History: Negative for smoking, alcohol use. Physical Examination: Vital Signs: Blood pressure 143/65, pulse 60, respiratory rate 18, temperature 97.8. Weight was 99 pounds, height 63 inches. General: Awake, alert, oriented, not in distress. HEENT: Head atraumatic, normocephalic. Conjunctivae nonerythematous. Sclerae white. Mouth, no thrush or edema noted. Ears/Nose, no mass, lesion, discharge noted. Neck: Supple. No JVD, lymph nodes, bruit, thyromegaly noted. Lungs: Bilateral good equal air entry. Clear to auscultation. No rhonchi. No rales. Heart: Presence of systolic murmur. No gallop. Abdomen: Soft, bowel sounds normal. No guarding, rigidity, tenderness, mass, hepatosplenomegaly, distention, or bruit noted. Extremities: No leg edema. No calf tenderness. Skin: No rash, ulcer, cellulitis. Lymphatics: No lymph node enlargement in neck, supraclavicular, infraclavicular region. Neuro: No focal neurological deficit. Chest: Unremarkable. External Genitalia: Deferred. Rectal: Deferred. Laboratory Data: On 09/02/2020; her BUN was 42, creatinine 2.33. On 10/07/2020; BUN 123, creatinine 3.78. Yesterday; BUN 138, creatinine 4.33. Today; BUN 131, creatinine 4.48, sodium 138, potassium 5.4, chloride 102, bicarb 27, glucose 138. White count 7.1, hemoglobin 10.6, platelets 148. INR is 5. COVID-19 test negative. Chest x-ray shows mild CHF pattern. Impression: 1. Acute kidney injury. 2. Hyperkalemia. 3. Coagulopathy. 4. Chronic anticoagulation use. 5. Hypertension. 6. Hyperlipidemia. 7. Hypothyroidism. 8. Chronic obstructive pulmonary disease. 9. Anemia due to chronic kidney disease. 10. Depression. Plan: Admit the patient to hospital for further evaluation and management of this problem. The patient is appropriate for inpatient and is expected to spend 2 midnights in hospital. We will go ahead and continue home medications per order, except we will not give any diuretic medication at this point. We will start her on careful IV fluid hydration, monitor her for signs and symptoms of any congestive heart failure. At this point, her lungs are clear. There is no evidence of any fluid retention with lungs or legs, and we will continue to monitor her in the hospital. At appropriate time, we will have to restart her diuretic therapy. We will get a renal ultrasound done tomorrow and renal artery Doppler. I will see her tomorrow for followup. For hyperkalemia, we will give 1 dose of Kayexalate and we will not give any warfarin and we will monitor her PT/INR. There is no evidence of any acute bleeding at this point and once her INR comes down, we will restart her warfarin at appropriate time at a lower dose. Monitor electrolyte and renal function along with PT/INR and blood count. Plan of treatment discussed with her. MARY/MARCO Voice ID: [id number] ADALGISA
[2020-10-21] MEDS ORDERED: HYDRALAZINE HCL 25 MG TABLET PO ONE (22:11)
[2020-10-22 01:07] VITALS: BMI 16.9
[2020-10-22 04:17] LABS: Absolute Lymphocytes (CBC) 1.5 K/uL (0.7-4.9); Basophils % 0.9 % (0-1.3); Hematocrit 28.9 % (36.0-45.0); Lymphocytes % 23.9 % (15.3-44.8); MPV 10.3 fL (7.6-11.3); RBC Red Blood Cell Count 3.62 M/uL (3.86-4.86)
[2020-10-22 04:38] LABS: Magnesium 2.2 mg/dL (1.8-2.4); Potassium 5.2 mmol/L (3.5-5.1)
[2020-10-22 05:07] LABS: Protime INR 4.26
[2020-10-22] MEDS: LEVOTHYROXINE SOD 0.1 MG TAB PO SCH (06:29)
[2020-10-22] MEDS ORDERED: SOD POLYSTYREN SUL 15 GM/60 ML UCUP PO ONE (07:42)
[2020-10-22] MEDS: ENSURE ENLIVE 237 ML CAN PO SCH ×2 (09:00→20:33)
[2020-10-22] MEDS: FERROUS SULFATE 325 MG TAB PO SCH (09:22)
[2020-10-22] MEDS: AMLODIPINE 5 MG TAB PO SCH ×2 (09:22→20:32)
[2020-10-22] MEDS: FAMOTIDINE 20 MG TAB PO SCH (09:22)
[2020-10-22] MEDS: HYDRALAZINE HCL 25 MG TABLET PO SCH ×2 (09:23→20:32)
[2020-10-22] MEDS: CITALOPRAM 10 MG TABLET PO SCH (09:23)
--- NOTE | 2020-10-22 11:09 | PN ---
Date of Progress Note: 10/21/2020 Subjective: The patient was seen this morning for followup. The patient reported that she is feelin g much better than yesterday after we admitted her to the hospital and after receiving IV fluid. Den ies any chest pain. No shortness of breath overnight. No nausea. No vomiting. Objective: Vital Signs: Reviewed. HEENT: Unremarkable. Lungs: Clear to auscultation. No wheezing. No rales. Heart: Sounds normal. Presence of systolic murmur unchanged. Abdomen: Soft. Bowel sounds normal. No guarding, rigidity, tenderness, or distention. Extremities: No leg edema. Laboratory Data: Reviewed. PT, INR, and BUN and creatinine still elevated, but better today than ye . Impression: 1.Acute kidney injury. 2.Congestive heart failure. 3.Hypertension. 4.Anemia. 5.Chronic anticoagulation therapy. Plan: We will current medications. We will go ahead and continue IV fluid. The patient's INR is co liliam down. There is no evidence of any bleeding. We will repeat blood work tomorrow morning includi ng PT/INR and her electrolytes. The patient already has started to improve. Depending on her blood work tomorrow, we will decide whether she is still able to go home either tomorrow or day after tomorrow. Details were discussed with her. MARY/MODL Voice ID: [id number] Report ID: [id number]
[2020-10-22] MEDS: D5 0.45 NS 1,000 ML IV SCH (11:36)
--- NOTE | 2020-10-23 00:10 | PN ---
Date of Progress Note: 10/22/2020 Subjective: The patient was seen this morning for followup. No new complaints or problems reported by the patient. Overall, she feels better. Denies any new complaints. No chest pain. No shortness of breath. No nausea or vomiting. Objective: Vital Signs: Reviewed. HEENT: Unremarkable. Lungs: Clear to auscultation. No rhonchi or rales. Heart: Sounds normal. Abdomen: Soft. Bowel sounds normal. No guarding, rigidity, tenderness, or distention. Extremities: No leg edema. Laboratory Data: White count 6.1, hemoglobin 9.7, platelets 130. Sodium 144, potassium 5.2, chlorid e 113, bicarb 24, BUN 100, creatinine 2.88, glucose 84, magnesium 2.2. Impression: 1.Acute kidney injury. 2.Anemia. 3.Thrombocytopenia. 4.Hypertension. Plan: We will continue current medication, anticoagulation therapy. Warfarin is on hold. INR is co liliam down slowly on a day-to-day basis. There is no evidence of any bleeding. We will continue to m onitor her blood work including renal function, which is improving very well. Today, IV fluid was ch anged to D5 half-normal saline at 70 cc/hour. I will see her tomorrow for followup. We will repeat blood work tomorrow morning. Depending on her blood work tomorrow, we will see if she can possibly go home garcia rrow or not. MARY/MODL Voice ID: [id number] Report ID: [id number]
[2020-10-23] MEDS: D5 0.45 NS 1,000 ML IV SCH (01:28)
[2020-10-23 06:25] LABS: Absolute Lymphocytes (CBC) 1.6 K/uL (0.7-4.9); Basophils % 0.9 % (0-1.3); Hematocrit 32.8 % (36.0-45.0); Lymphocytes % 27.3 % (15.3-44.8); MPV 10.2 fL (7.6-11.3); RBC Red Blood Cell Count 4.03 M/uL (3.86-4.86)
[2020-10-23 06:26] LABS: Protime INR 2.27
[2020-10-23 06:36] LABS: Potassium 4.9 mmol/L (3.5-5.1)
[2020-10-23] MEDS: LEVOTHYROXINE SOD 0.1 MG TAB PO SCH (07:36)
[2020-10-23] MEDS: FERROUS SULFATE 325 MG TAB PO SCH (08:19)
[2020-10-23] MEDS: ENSURE ENLIVE 237 ML CAN PO SCH (08:19)
[2020-10-23] MEDS: CITALOPRAM 10 MG TABLET PO SCH (08:19)
[2020-10-23] MEDS: AMLODIPINE 5 MG TAB PO SCH (08:19)
[2020-10-23] MEDS: HYDRALAZINE HCL 25 MG TABLET PO SCH (08:19)
[2020-10-23] MEDS: FAMOTIDINE 20 MG TAB PO SCH (08:22)
[2020-10-23 08:56] VITALS: O2SAT 92
[2020-10-23] MEDS ORDERED: D5 0.45 NS 1,000 ML IV SCH (09:40)
[2020-10-23] MEDS ORDERED: FUROSEMIDE 40 MG TABLET PO SCH (10:00)
--- NOTE | 2020-10-23 11:02 | PN ---
Date of Progress Note: 10/23/2020 Subjective: The patient was seen this morning for followup. She denies any shortness of breath. No chest pain. Overall feels better. Objective: Vital Signs: Reviewed. HEENT: Unremarkable. Lungs: Clear to auscultation. No wheezing. No rales. Heart: Sounds normal, presence of systolic murmur unchanged. Abdomen: Soft. Bowel sounds normal. No guarding, rigidity, tenderness, or distention. Extremities: No leg edema. Laboratory Data: White count 6, hemoglobin 10.7, platelets 136. INR 2.27. Sodium 143, potassium 4. 9, chloride 112, bicarb 28, BUN 64, creatinine 2.21, glucose 91, magnesium 2. Impression: 1.Acute kidney injury. 2.Anemia. 3.Thrombocytopenia. 4.Chronic anticoagulation therapy. 5.Hypertension. 6.Hyperkalemia. Plan: The patient's acute kidney injury problem has improved significantly with IV fluid hydration a nd so far we kept her diuretic medication on hold. Starting today, we will resume her furosemide 40 mg daily. At home she was taking it 2 times a day. Starting today, we will also resume her warfarin 2 mg daily. We will continue other current antihypertensive medication. Potassium level is normal now. I have discussed details with her. Her renal function is almost back to her baseline and we will plan to discharge her to go home either today or tomorrow. Details were discussed with her. MARY/MODL Voice ID: [id number] Report ID: [id number]
[2020-10-23 16:11] VITALS: TEMP 99
[2020-10-23 16:32] VITALS: BP 150/80
[2020-10-23] MEDS ORDERED: WARFARIN SODIUM 2 MG TAB PO SCH (17:00)
--- NOTE | 2020-10-25 20:58 | DS ---
Date of Discharge: 10/23/2020 Disposition: Discharged to go home. Physical Examination: See copy of today's progress note for more details. Discharge Medications And Instructions: 1.Continue all prior home medications except change furosemide 40 mg, the patient to take 1 tablet b y mouth daily. 2.Follow up at my office on 10/29/2020. 3.Come to our office on 10/28/2020 for nonfasting blood work. Laboratory Data: Upon admission on 10/20/2020, white count 7.1, hemoglobin 10.6, platelets 148, sodi um 138, potassium 5.4, chloride 102, bicarb 27, BUN 131, creatinine 4.48, glucose 138, liver function tests unremarkable. Today, on day of discharge, sodium 143, potassium 4.9, chloride 112, bicarb 28, BUN 64, creatinine 2.21, glucose 91, and her renal function is almost back to baseline and today als o on the day of discharge, last CBC shows white count 6, hemoglobin 10.7, platelets 136. Her initial INR upon admission on 10/20/2020 was 5.46 and we followed up on INR daily and it started coming down and last INR today on day of discharge 2.27. COVID-19 test negative. Her ultrasound of kidney was negative for any acute changes, it did show a benign-appearing renal cyst and renal artery Doppler wa s negative. Chest x-ray was reported as changes of mild CHF. Clinically, the patient did not have a ny signs or symptoms of CHF. Final Diagnoses: 1.Acute kidney injury. 2.Hyperkalemia. 3.Coagulopathy. 4.Chronic anticoagulation therapy. 5.Hypertension. 6.Hyperlipidemia. 7.Hypothyroidism. 8.Chronic obstructive pulmonary disease. 9.Anemia due to chronic kidney disease. 10.Depression. Hospital Course: Ms. Dill is a pleasant 75-year-old female patient admitted to the hospital wit h acute kidney injury and complaining of feeling weak. Please see dictated H and P for more informat ion. After the patient was admitted to the hospital, careful IV fluid hydration was started. She sierra d hyperkalemia and it was treated with Kayexalate. Her potassium came down to normal. We followed u p on her renal function, blood count, and PT/INR. PT/INR came within normal therapeutic range and at that point, which was on the day of discharge, we informed the patient to restart her anticoagulatio n therapy, which is warfarin 1 mg, she takes 2 tablets daily. At home, she was taking furosemide 40 mg 2 times a day. Instead of that, we will have her go home with 40 mg once a day. She was on metol azone, which was discontinued about 2 weeks ago or so, and we will not restart that. Overall, the howard sadler has felt much better with improvement in her renal function and she was discharged to go home i n stable and improved condition. We will follow up on her electrolytes, renal function, and PT/INR d ay prior to her office visit. MARY/MODL Voice ID: [id number] Report ID: [id number]
== END 2020-10-23 17:00 | disposition home or self-care (01) | DRG 683 ==
LOC: 4TH 18:33
PROVIDERS: ADMIT Internal Medicine; ATTEND Internal Medicine
DX: N17.9 Acute kidney failure, unspecified (principal); I50.32 Chronic diastolic (congestive) heart failure; I13.0 Hypertensive heart and chronic kidney disease with heart failure and stage 1 through stage 4 chronic kidney disease, or unspecified chronic kidney disease; D68.9 Coagulation defect, unspecified; E03.9 Hypothyroidism, unspecified; J44.9 Chronic obstructive pulmonary disease, unspecified; E78.5 Hyperlipidemia, unspecified; E87.5 Hyperkalemia; N18.9 Chronic kidney disease, unspecified; D63.1 Anemia in chronic kidney disease; F32.9 Major depressive disorder, single episode, unspecified; D69.6 Thrombocytopenia, unspecified; Z88.1 Allergy status to other antibiotic agents; Z79.890 Hormone replacement therapy; Z79.01 Long term (current) use of anticoagulants; Z95.0 Presence of cardiac pacemaker; Z79.899 Other long term (current) drug therapy; Z88.5 Allergy status to narcotic agent; Z20.822 Contact with and (suspected) exposure to COVID-19
CPT/HCPCS: 36415; 71046; 80048; 80053; 83735; 85025; 85610; 93975; J7030; J7799; U0003

== ENCOUNTER 2021-10-29 20:43 | Emergency (ER) | payer OTHER, BC ==
--- OUTSIDE RECORDS SUMMARY | 2021-10-29 20:45 | XMS REPORT | Continuity of Care Document ---
:1945 Author Organization [facility] t Address [address] [place] [address] Care Team Providers Name Role Phone Edelmira NORWOOD Primary Care Physician Problems Condition Condition Condition Status Onset Resolution Last Treating Co mments Source Name Details Category Date Date Treatment Clinician Date Mammograph Mammograph Disease Active U nivers y abnormal y abnormal 3-12 it y of 00:00: 00 MD Viviana hernandez [facility] Bradycardi Bradycardi Disease Active Overview : Univers a a 05-15 Formattin ity of 00:00: g of this note might be Andjefferyo different n from the Cancer original. Center s/p pacemaker Ventricula Ventricula Disease Active Overview : Univers r septal r septal 05-15 Formattin ity of defect defect 00:00: g of this note might be Andjefferyo different n from the Cancer original. Center s/p VSD repair Anemia of Anemia of Disease Active Uni vers chronic chronic ity of disease disease Jeniffer hernandez [facility] Stenosis Stenosis Disease Active Overview: Un savi of of [place] ity of pulmonary pulmonary g of this [place] artery artery note might be Gavino different n from the Cancer original. Center Requires 2L 02 at night time only. Dependence Dependence Disease Active U nivers [place]urnal [place] oxygen oxygen therapy therapy Viviana hernandez [facility] Chronic Chronic Disease Active Univers kidney kidney ity of disease disease Jeniffer hernandez [facility] Hyperlipid Hyperlipid Disease Active U nivers emia emia ity of [place] MD Viviana hernandez [facility] Hypertensi Hypertensi Disease Active U nivers on on [facility]y of [place] MD Viviana hernandez [facility] Hypothyroi Hypothyroi Disease Active U nivers dism dism ity of [place] MD Viviana hernandez [facility] Depressive Depressive Disease Active U nivers disorder disorder ity of [place] MD Viviana hernandez [facility] Pulmonary Pulmonary Disease Active Overview: Univers embolism embolism Formattin ity of g of this [place] note MD might be Viviana myers n from the Cancer original. Center on chronic coumadin Pulmonary Pulmonary Disease Active Uni vers embolism embolism ity of on on [place] long-term long-term anticoagul anticoagul Natacha garcia atdaxa atdaxa n therapy therapy Cancer Center Allergies, Adverse Reactions, Alerts Allergy Allergy Status Severity Reaction(s) Onset Inactive Treating Comm ents Source Name Type Date Date Clinician Tetanus Propensi Active Other (See Uni vers Immune ty to Comments) 09-13 ity of Globulin adverse 00:00: [place] reaction 00 MD arturo hernandez [facility] Codeine Propensi Active Nausea And Uni vers ty to Vomiting 4-25 ity of adverse 00:00: [place] reaction 00 MD arturo hernandez [facility] Meperidi Propensi Active Nausea And Un savi ne ty to Vomiting 4-25 ity of adverse 00:00: [place] reaction 00 MD arturo hernandez [facility] Sulfa Propensi Active Swelling Univer s (Sulfona ty to 4-25 ity of mide adverse 00:00: [place] Antibiot reaction 00 ics) arturo Alonso david [facility] Family History Family Member Diagnosis Comments Start Date Stop Date Source Natural father Mesothelioma [facility] [place] Canalecia r [place] Other Pancreatic cancer [facility] [place] Cance r [place] Family member Breast cancer [facility] [place] Cance r [place] Family member Ovarian cancer [facility] [place] Cance r [place] Social History Social Habit Start Date Stop Date Quantity Comments Source History SDOH University o f Alcohol Std Jeniffer [place] [facility] Dr[facility] History SDOH University o f Alcohol Binge Jeniffer phelps [facility] History SDOH University o f Alcohol Comment [facility] Tobacco use and 2019-07-25 2019-07-25 Smokeless tobacco Un iversity of exposure 00:00:00 00:00:00 non-user Jeniffer calzada [facility] Alcohol intake 2019-07-25 2019-07-25 Lifetime University of 00:00:00 00:00:00 non-drinker [place] MD Chaparro you (finding) [facility] History SDOH 2019-07-25 2019-07-25 1 University o f Alcohol Frequency 00:00:00 00:00:00 [facility] Sex Ass[birth year] F Universit y of 00:00:00 00:00:00 [place] MD Romeo calzada [facility] Center Smoking Status Start Date Stop Date Source Never smoked tobacco [facility] Medications Ordered Filled Start Stop Current Ordering Indication Dosage Frequency Signature Comments Components Source Medication Medication Date Date Medication? Clinician (SIG) Name Name doxazosin 2020-0 Yes 4mg Take 4 mg Uni vers (CARDURA) 4 3-12 by mouth ity of mg tablet 14:13: twice [place] 09 daily. MD Viviana hernandez [facility] fluticasone 2020-0 Yes 2{puff} Inhale 2 Univers propionate- 3-12 puffs by ity of salmeterol 14:13: mouth. [place] (ADVAIR) 09 250 mcg-50 Anderso mcg/inhalat n ion diskus Cancer inhaler Center furosemide 2020-0 Yes 40mg Take 40 mg U nivers (LASIX) 40 3-12 by mouth. ity of mg tablet 14:13: 09 MD Viviana hernandez [facility] levothyroxi 2020-0 Yes 88ug Take 88 Uni vers ne 3-12 mcg by ity of (SYNTHROID, 14:13: mouth. Braulio morris LEVOTHROID) 09 88 mcg Anderso tablet [facility] TART FERNANDEZ 2020-0 Yes 1200mg Take 1,200 Univers EXTRACT 3-12 mg by ity of ORAL 14:13: mouth. 08 MD Viviana hernandez [facility] cholecalcif 2020-0 Yes [id number][i Take Uni vers johana, 3-12 U] 15,000 ity of vitamin D3, 14:13: Int'l [place] (VITAMIN D3 08 Units by MD HERNANDEZ) mouth Anderso every 30 n (thirty) Cancer days. [place] vit A/vit 2020-0 Yes 1{tbl} Take 1 Univ ers C/vit 3-12 tablet by ity of E/zinc/tiffanie 14:13: mouth. Braulio salomon 08 (FIDELIA ANGELO AREDS n ORAL) Cancer Center amLODIPine 2020-0 Yes 5mg Take 5 mg Un savi (NORVASC) 5 3-12 by mouth. ity of mg tablet 14:13: [place] 08 MD Viviana hernandez [facility] calcitriol 2020-0 Yes .25ug Take 0.25 U nivers (ROCALTROL) 3-12 mcg by ity of 0.25 mcg 14:13: mouth 2 [place] capsule 08 (two) times a [facility] citalopram 2020-0 Yes Univers (CeleXA) 10 3-06 ity of mg tablet 00:00: [place] 00 MD Michelle [facility] famotidine 2020-0 Yes Univers (PEPCID) 20 3-06 ity of mg tablet 00:00: [place] 00 MD Viviana hernandez [facility] warfarin 2020-0 Yes 2{tbl} Take 2 Unive rs (COUMADIN) 2-12 tablets by ity of 1 mg tablet 00:00: mouth [place] 00 daily. MD Viviana hernandez [facility] hydrALAZINE 2019-0 Yes 1{tbl} Take 1 Un savi (APRESOLINE 2-03 tablet by ity of ) 50 mg 00:00: mouth [place] tablet 00 twice MD daily. [facility] Procedures This patient has no known procedures. Plan of Care Planned Activity Planned Date Details Comments Source Future Scheduled 2021-06-02 COVID-19 Vaccination Uni vers[facility] [place] Test 06:16:12 (1) [code = COVID-19 MD [place] [facility] [facility] Vaccination (1)] Center Results This patient has no known results.
--- OUTSIDE RECORDS SUMMARY | 2021-10-29 20:45 | XMS REPORT | Clinical Summary ---
:1945 Author Organization [facility] MD [facility] Address [address] [place] [address] Care Team Providers Name Role Phone Jonathan Raza MD Unavailable MD Edelmira Primary Care Provider Buddy Raygoza MD Unavailable Mike Hamilton MD Unavailable Latisha Mcconnell MD Unavailable MD Dash Unavailable Allergies Active Allergy Reactions Severity Noted Date Comments Codeine Nausea And Vomiting 09/06/2017 Meperidine Nausea And Vomiting 09/06/2017 Sulfa (Sulfonamide Antibiotics) Swelling 8 Tetanus Immune Globulin Other (See Comments) 8 Medications Medication Sig Dispensed Refills Start Date End Date Status TART FERNANDEZ EXTRACT Take 1,200 mg by 0 Active ORAL mouth. cholecalciferol, Take 15,000 Int'l 0 Active vitamin D3, (VITAMIN D3 Units by mouth ORAL) every 30 (thirty) days. vit A/vit C/vit Take 1 tablet by 0 Active E/zinc/copper mouth. (PRESERVISION AREDS ORAL) amLODIPine (NORVASC) 5 Take 5 mg by 0 Active mg tablet mouth. calcitriol (ROCALTROL) Take 0.25 mcg by 0 Active 0.25 mcg capsule mouth 2 (two) times a week MTH. citalopram (CeleXA) 10 0 07/19/2019 Active mg tablet doxazosin (CARDURA) 4 Take 4 mg by 0 Active mg tablet mouth twice daily. famotidine (PEPCID) 20 0 07/19/2019 Active mg tablet fluticasone Inhale 2 puffs by 0 Active propionate-salmeterol mouth. (ADVAIR) 250 mcg-50 mcg/inhalation diskus inhaler furosemide (LASIX) 40 Take 40 mg by 0 Active mg tablet mouth. hydrALAZINE Take 1 tablet by 0 06/17/2019 Active (APRESOLINE) 50 mg mouth twice tablet daily. levothyroxine Take 88 mcg by 0 A ctive (SYNTHROID, LEVOTHROID) mouth. 88 mcg tablet warfarin (COUMADIN) 1 Take 2 tablets by 0 06/26/2019 Active mg tablet mouth daily. 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 Dependence on nocturnal oxygen therapy Chronic kidney disease Hyperlipidemia Hypertension Hypothyroidism Depressive disorder Pulmonary embolism Overview: on chronic coumadin Pulmonary embolism on long-term anticoagulation therap y Surgical History Surgery Date Site/Laterality Comments VSD REPAIR 05/15/2007 - 05/14/2008 CARDIAC PACEMAKER PLACEMENT 05/15/2007 - 05/14/2008 CHOLECYSTECTOMY CATARACT EXTRACTION, BILATERAL EYE SURGERY Left Left epi retinol surgery TRACHEOSTOMY TUBE PLACEMENT 05/15/2007 - 05/14/2008 Medical History Medical History Date Comments Hypertension Hyperlipidemia Hypothyroidism Chronic kidney disease Anemia of chronic disease Obsessive-compulsive disorder Depressive disorder Osteoporosis Stenosis of pulmonary artery Requires 2L 02 at night time only. Gout Biliary calculus Urinary incontinence Sleep apnea Borderline. Does not use a CPAP Bradycardia 2007 s/p pacemaker Ventricular septal defect 2007 s/p VSD repair Dependence on nocturnal oxygen therapy Pulmonary embolism on long-term anticoagulation therapy Family History Medical History Relation Name Comments Mesothelioma Father Pancreatic cancer Other 1/2 brother Breast cancer Neg Hx Ovarian cancer Neg Hx Relation Name Status Comments Father Other 1/2 brother Social History Tobacco Use Types Packs/Day Years Used Date Never Smoker Smokeless Tobacco: Never Used Alcohol Use Standard Drinks/Week Comments Never 0 (1 standard drink = 0.6 oz pure alcoho l) Alcohol Habits Answer Date Recorded How often do you have a drink containing alcohol? Never 07/25/2019 How many drinks containing alcohol do you have on a typical Not asked day when you are drinking? How often do you have six or more drinks on one occasion? No t asked Comment: Not asked Sex Assigned at Date Recorded Female 07/24/2019 10:48 AM CDT Obstetrics History Para Term AB IAB SAB Ectopic Multiple Living Live Births 0 0 0 0 0 0 0 0 0 0 0 Comments Age of menarche: 16 OCP: 10 years HRT: none Fertility treatments: none Menopausal status: natural menopause@52y o Bra Size: B Last Filed Vital Signs Not on file Plan of Treatment Health Maintenance Due Date Last Done Comments COVID-19 Vaccination (1) 1950 Results Not on fileafter 10/29/2020 Insurance Payer Benefit Plan Subscriber ID Effective Phone Address Typ e / Group Dates MEDICARE MEDICARE PART [id number] 2012-Prese [phone] [employer] Medicare A AND B nt 82 SOLUTIONS [address] [place] [address] BLUE [place] BCBS [place] PPO [id number] 2012-Prese [address] PPO [place] 6[address]368 [place] [address] Care Teams Cooper Helper Relationship Specialty Start Date End Date John Raza MD PCP - External Referring Internal Medicine 07/12/19 [facility] [place] [address] Annabella Hickey MD PCP - General Breast Surgery 07/22/19 Jerry Raygoza Cardiology 07/25/19 MD Buddy [address] [facility] [place] [address] Pasquale Hamilton, Pulmonary Medicine 07/25/[address] [place] [address] [place] [address] Ajay Mcconnell, Ophthalmology 07/25/[address] [place], [place] [address] Yamil Bowling MD Consulting Physician Cardiology 07/25/[address] [id number]
[2021-10-29 21:35] LABS: Absolute Lymphocytes (CBC) 0.8 K/uL (0.7-4.9); Hematocrit 34.3 % (36.0-45.0); Lymphocytes % 7.5 % (15.3-44.8); MPV 10.6 fL (7.6-11.3)
[2021-10-29 21:37] LABS: Potassium 5.4 mmol/L (3.5-5.1)
[2021-10-29 21:40] LABS: Protime INR 1.51
--- NOTE | 2021-10-29 22:29 | RAD REPORT ---
EXAM DESCRIPTION: CT - Head C Spine Cap Wo Con - 10/29/2021 10:12 pm CLINICAL HISTORY: fall, head injury, neck and back pain, on warfarin COMPARISON: No comparisons TECHNIQUE: CT head without contrast. CT cervical spine without contrast with coronal and sagittal reformatted images. CT chest, abdomen and pelvis with coronal and sagittal reformatted images of the spine. All CT scans are performed using dose optimization technique as appropriate and may include automated exposure control or mA/KV adjustment according to patient size. FINDINGS: CT HEAD WITHOUT CONTRAST: No intracranial hemorrhage, hydrocephalus or extra-axial fluid collection. No acute large vascular te rritory infarct. The paranasal sinuses and mastoids are clear. The calvarium is intact. CT CERVICAL SPINE WITHOUT CONTRAST: No fracture or subluxation. The prevertebral soft tissues are normal in thickness. CT CHEST, ABDOMEN, PELVIS: Thorax: Chest Wall: No abnormal mass left upper chest wall pacemaker. Lungs: Pulmonary nodules noted. For example, a 5 mm nodule is present in the right upper lobe on imag e 24, series 402. A subpleural nodule in the right lower lobe measures 8 millimeters. Mucoid impacted lower lobe airways on the right side. Other areas of nodularity and micro nodularity. Scattered grou nd-glass opacities. No evidence of edema. No convincing evidence of an acute pneumonia. The findings are all favored chronic. Pleura: No effusions or pneumothorax. Amy/Mediastinum: No lymphadenopathy. Aorta/Pulmonary Arteries: Calcifications versus prior repair of the main pulmonary artery. The pulmon mariann arteries are enlarged. No aortic aneurysm. Heart: Cardiomegaly. Abdomen/Pelvis: Liver: Cirrhotic liver morphology. Biliary: No biliary ductal dilatation. Stomach: Small hiatal hernia Duodenum: No significant focal abnormality. Pancreas: No significant abnormality. Spleen: No significant abnormality. Adrenal: No suspicious lesions. Kidney/ureter: No hydronephrosis. Left renal cyst. No stones identified. Retroperitoneum: No retroperitoneal adenopathy. Vascular: No aneurysm. Bowel: Normal appendix.. Peritoneum: No ascites or free air. Bladder: Grossly unremarkable. Reproductive: No adnexal masses. Bones: Acute T12 compression fracture with less than 20% loss of height. No bony retropulsion. Other: n/a IMPRESSION: 1. Acute T12 compression fracture with less than 20% loss of height and no significant b lisa retropulsion. 2. No other evidence of significant trauma to the chest, abdomen, or pelvis identified. 3. No acute intracranial abnormality 4. No cervical spine fracture or traumatic malalignment. 5. Pulmonary nodules, the largest measuring 8 millimeters. Suspect a benign etiology as there are oth er findings suggesting a chronic or indolent infectious or inflammatory process. Consider 3-6 month f ollow-up chest CT. .
--- NOTE | 2021-10-29 22:54 | ER ---
Nurse's Notes [facility] Name: Jaymie Dill Age: 76 yrs Sex: Female : 1945 Arrival Date: 10/29/2021 Time: 20:52 Bed 18 Private MD: Diagnosis: Other fracture of unspecified thoracic vertebra, initial encounter for closed fracture-T12, 20% Presentation: 10/29 20:55 Chief complaint: Patient states: Fell at home - hit back of head, negative LOC, pt is tw5 on blood thinners. C/O N/V/fatigue. Coronavirus screen: At this time, the client does not indicate any symptoms associated with coronavirus-19. Ebola Screen: No symptoms or risks identified at this time. Initial Sepsis Screen: Does the patient meet any 2 criteria? No. Patient's initial sepsis screen is negative. Does the patient have a suspected source of infection? No. Patient's initial sepsis screen is negative. Risk Assessment: Do you want to hurt yourself or someone else? Patient reports no desire to harm self or others. Onset of symptoms was October 29, 2021. 20:55 Method Of Arrival: EMS: [facility] tw5 20:55 Acuity: SALUD 3 tw5 Triage Assessment: 20:57 General: Appears in no apparent distress. comfortable, Behavior is calm, cooperative, tw5 appropriate for age. Pain: Complains of pain in back Pain does not radiate. Pain currently is 7 out of 10 on a pain scale. EENT: No signs and/or symptoms were reported regarding the EENT system. Neuro: Level of Consciousness is awake, alert, obeys commands, Oriented to person, place, time, situation. Cardiovascular: Capillary refill < 3 seconds Patient's skin is warm and dry. Respiratory: Airway is patent Respiratory effort is even, unlabored. GI: Abdomen is flat, non-distended. : No signs and/or symptoms were reported regarding the genitourinary system. Derm: No signs and/or symptoms reported regarding the dermatologic system. Musculoskeletal: No signs and/or symptoms reported regarding the musculoskeletal system. Historical: - Allergies: 20:57 Codeine; tw5 20:57 Demerol; tw5 20:57 Sulfa (Sulfonamide Antibiotics); tw5 20:57 Tetanus Vaccines \T\ Toxoid; tw5 - PMHx: 20:57 Heart Murmur; stage 3 renal disease; ventricular septal defect; Pseudocholinesterase tw5 deficiency; Hypertension; ESRD; Pacemaker; - Immunization history:: Adult Immunizations up to date, Client reports receiving the 2nd dose of the Covid vaccine. - Social history:: Smoking status: Patient denies any tobacco usage or history of. Patient/guardian denies using alcohol. - Family history:: not pertinent. - Hospitalizations: : No recent hospitalization is reported. Screenin:59 Abuse screen: Denies threats or abuse. Denies injuries from another. Nutritional tw5 screening: No deficits noted. Nutritional screening: No deficits noted. Tuberculosis screening: No symptoms or risk factors identified. Fall Risk None identified. Assessment: 20:59 Reassessment: See triage assessment. tw5 Vital Signs: 20:55 BP 176 / 86; Pulse 60; Resp 18; Pulse Ox 92% on 2 lpm NC; Pain 7/10; tw5 21:22 BP 172 / 58; Pulse 63; Resp 18; Pulse Ox 93% on 3 lpm NC; bh1 21:41 BP 175 / 59; Pulse 81; Resp 23; Pulse Ox 93% on 3 lpm NC; tw5 22:23 BP 170 / 110; Pulse 60; Resp 19; Pulse Ox 92% on 3 lpm NC; bh1 23:23 BP 176 / 77; Pulse 65; Resp 18; Pulse Ox 93% on 3 lpm NC; bh1 ED Course: 20:52 Patient arrived in ED. tw5 20:52 Houston Garcia MD is Attending Physician. rn 20:57 Triage completed. tw5 20:57 Arm band placed on right wrist. tw5 20:59 Patient has correct armband on for positive identification. Placed in gown. Bed in low tw5 position. Call light in reach. Side rails up X2. staff scientist on. Pulse ox on. NIBP on. Door closed. Noise minimized. Warm blanket given. 20:59 No provider procedures requiring assistance completed. tw5 21:01 Janette Bowen is Primary Nurse. tw5 21:20 CBC with Diff Sent. bh1 21:20 Basic Metabolic Panel Sent. bh1 21:20 Ptt, Activated Sent. bh1 21:20 Protime (+inr) Sent. bh1 21:21 No apparent distress. Awaiting lab results, Awaiting CT Scan. bh1 21:21 Inserted saline lock: 20 gauge in right antecubital area, using aseptic technique. [facility] 22:14 Head C Spine Cap Wo Con In Process Unspecified. EDMS 22:22 Awaiting radiology results. [facility] 23:22 IV discontinued, intact, bleeding controlled, No redness/swelling at site. [facility] Administered Medications: 23:09 Drug: Tylenol 650 mg Route: PO; [facility] 23:22 Follow up: Response: No adverse reaction [facility] Medication: 20:59 VIS not applicable for this client. [facility] Outcome: 22:54 Discharge ordered by . rn 23:22 Discharged to home via wheelchair, with family. [facility] 23:22 Condition: good 23:22 Discharge instructions given to patient, family, Instructed on discharge instructions, follow up and referral plans. Demonstrated understanding of instructions, follow-up care. 23:23 Patient left the ED. [facility] Signatures: Dispatcher [employer] Houston Rand MD MD rn Wood, Tiffany [facility] Li Barbosa RN RN [facility]
--- NOTE | 2021-10-29 22:55 | EDPHYS ---
Physician Documentation [facility] Name: Jaymie Dill Age: 76 yrs Sex: Female : 1945 Arrival Date: 10/29/2021 Time: 20:52 Bed 18 Private MD: ED Physician Houston Garcia HPI: 10/29 22:37 This 76 yrs old Female presents to ER via EMS with complaints of Fall Injury. rn 22:37 Details of fall: The patient fell from an upright position. Onset: The symptoms/episode rn began/occurred just prior to arrival. Associated injuries: The patient sustained injury to the head, upper back injury, injury to the low back. Severity of symptoms: At their worst the symptoms were moderate, in the emergency department the symptoms have improved. The patient has experienced similar episodes in the past. The patient has not recently seen a physician. Pt reports fall from standing, slipped, landed on back, hit head and back, reports mild pain to head and moderate pain to back. No chest pain or abd pain. Takes warfarin. Remembers all events. No LOC. Reports on home O2, 2-3L, denies acute sob. Reports has PAH.. Historical: - Allergies: 20:57 Codeine; tw5 20:57 Demerol; tw5 20:57 Sulfa (Sulfonamide Antibiotics); tw5 20:57 Tetanus Vaccines \\T\\ Toxoid; tw5 - PMHx: 20:57 Heart Murmur; stage 3 renal disease; ventricular septal defect; Pseudocholinesterase tw5 deficiency; Hypertension; ESRD; Pacemaker; - Immunization history:: Adult Immunizations up to date, Client reports receiving the 2nd dose of the Covid vaccine. - Social history:: Smoking status: Patient denies any tobacco usage or history of. Patient/guardian denies using alcohol. - Family history:: not pertinent. - Hospitalizations: : No recent hospitalization is reported. ROS: 22:39 Constitutional: Negative for fever, chills, and weight loss, Eyes: Negative for injury, rn pain, redness, and discharge, Neck: Negative for injury, pain, and swelling, Cardiovascular: Negative for chest pain, palpitations, and edema, Respiratory: Negative for shortness of breath, cough, wheezing, and pleuritic chest pain, Abdomen/GI: Negative for abdominal pain, nausea, vomiting, diarrhea, and constipation, Back: + mid back pain MS/Extremity: Negative for injury and deformity, Skin: Negative for injury, rash, and discoloration, Neuro: Negative for headache, weakness, numbness, tingling, and seizure. Exam: 22:39 Constitutional: This is a well developed, well nourished patient who is awake, alert, rn and in no acute distress. Head/Face: Normocephalic, atraumatic. Eyes: Pupils equal round and reactive to light, extra-ocular motions intact. ENT: No oral trauma. Neck: No midline cervical tenderness Chest/axilla: Normal chest wall appearance and motion. Nontender with no deformity. No lesions are appreciated. Cardiovascular: Regular rate and rhythm. No pulse deficits. Respiratory: No increased work of breathing, no retractions or nasal flaring. Abdomen/GI: Soft, non-tender Back: + mid thoracic spinal tenderness, no swelling, no ecchymosis Skin: Warm, dry MS/ Extremity: Pulses equal, no cyanosis. Neurovascular intact. Full, normal range of motion. Equal circumference. Neuro: Awake and alert, GCS 15, oriented to person, place, time, and situation. Vital Signs: 20:55 BP 176 / 86; Pulse 60; Resp 18; Pulse Ox 92% on 2 lpm NC; Pain 7/10; tw5 21:22 BP 172 / 58; Pulse 63; Resp 18; Pulse Ox 93% on 3 lpm NC; bh1 21:41 BP 175 / 59; Pulse 81; Resp 23; Pulse Ox 93% on 3 lpm NC; tw5 22:23 BP 170 / 110; Pulse 60; Resp 19; Pulse Ox 92% on 3 lpm NC; bh1 23:23 BP 176 / 77; Pulse 65; Resp 18; Pulse Ox 93% on 3 lpm NC; bh1 MDM: 20:52 Patient medically screened. rn 22:51 Differential diagnosis: closed head injury, contusion, fracture, multiple trauma, rn sprain, strain. Data reviewed: vital signs, nurses notes, radiologic studies, CT scan, and as a result, I will discharge patient. Counseling: I had a detailed discussion with the patient and/or guardian regarding: the historical points, exam findings, and any diagnostic results supporting the discharge/admit diagnosis, lab results, radiology results, the need for outpatient follow up, to return to the emergency department if symptoms worsen or persist or if there are any questions or concerns that arise at home. Response to treatment: the patient's symptoms have mildly improved after treatment, and as a result, I will discharge patient. Special discussion: I discussed with the patient/guardian in detail that at this point there is no indication for admission to the hospital. It is understood, however, that if the symptoms persist or worsen the patient needs to return immediately for re-evaluation. Based on the history and exam findings, there is no indication for further emergent testing or inpatient evaluation. I discussed with the patient/guardian the need to see the back specialist for further evaluation of the symptoms. I discussed with the patient/guardian the need to see the primary care provider for further evaluation of the symptoms. ED course: Acute mild T12 fracture < 50% height. Spoke with patient to confirm her breathing is at baseline and oxygen at baseline, she and confirm she is at her baseline. Will dc home with back and pcp f/u. Pt states allergic to "everything" and can only take tylenol. Return precautions given and understood. . 10/29 20:53 Order name: CBC with Diff; Complete Time: 21:40 10/29 20:53 Order name: Basic Metabolic Panel; Complete Time: 21:40 10/29 20:53 Order name: Protime (+inr); Complete Time: 21:40 10/29 20:53 Order name: Ptt, Activated; Complete Time: 21:40 10/29 21:52 Order name: Head C Spine Cap Wo Con; Complete Time: 22:36 EDME 10/29 20:53 Order name: IV Start; Complete Time: 21:20 10/29 20:53 Order name: Cardiac monitoring; Complete Time: 21:20 10/29 20:53 Order name: O2 Sat Monitoring; Complete Time: 21:01 rn Administered Medications: 23:09 Drug: Tylenol 650 mg Route: PO; 1 23:22 Follow up: Response: No adverse reaction bh1 Disposition Summary: 10/29/21 22:54 Discharge Ordered Location: Home rn Problem: new rn Symptoms: have improved rn Condition: Stable rn Diagnosis - Other fracture of unspecified thoracic vertebra, initial encounter for closed rn fracture - T12, 20% Followup: rn - With: Private Physician - When: As needed - Reason: Recheck today's complaints, Re-evaluation by your physician Discharge Instructions: - Discharge Summary Sheet rn - Thoracic Spine Fracture rn Forms: - Medication Reconciliation Form rn - Thank You Letter rn - Antibiotic social media intern - Prescription Opioid Use rn Signatures: Dispatcher [employer] EDHouston Junior MD MD rn Wood, Tiffany tw5 Li Barbosa RN RN [facility] Corrections: (The following items were deleted from the chart) 21:52 20:56 Head C Spine CAP W [id number] ordered. EDMS EDMS
[2021-10-29] MEDS ORDERED: ACETAMINOPHEN 325 MG TABLET ONE (23:16)
[2021-10-30 00:28] VITALS: BP 176/77; O2SAT 93
== END 2021-10-29 23:23 | disposition home or self-care (01) ==
LOC: ER 20:43
DX: S22.089A Unspecified fracture of T11-T12 vertebra, initial encounter for closed fracture (principal); I12.9 Hypertensive chronic kidney disease with stage 1 through stage 4 chronic kidney disease, or unspecified chronic kidney disease; N18.30 Chronic kidney disease, stage 3 unspecified; Z95.0 Presence of cardiac pacemaker; Z88.2 Allergy status to sulfonamides; Z88.5 Allergy status to narcotic agent; Z88.7 Allergy status to serum and vaccine
CPT/HCPCS: 36415; 70450; 71250; 72125; 80048; 85025; 85610; 85730; 99284

== ENCOUNTER 2022-05-31 09:59 | Inpatient (IN) | payer OTHER, BC ==
[2022-05-31 11:27] LABS: SARS-CoV-2 Antigen Rapid Res Negative (Negative)
--- OUTSIDE RECORDS SUMMARY | 2022-05-31 12:37 | XMS REPORT | Clinical Summary ---
:1945 Author Organization [facility] MD [facility] Address [address] [place] [address] Care Team Providers Name Role Phone John Raza MD Unavailable Annabella Hickey MD Primary Care Provider Jerry Raygoza MD Unavailable [phone] Pasquale Hamilton MD Unavailable Ajay Mcconnell MD Unavailable Yamil Bowling MD Unavailable Allergies Active Allergy Reactions Severity Noted [...] capsule mouth 2 (two) times a week [facility]. citalopram (CeleXA) 10 0 07/19/2019 Active mg [...] Tobacco Use Types Packs/Day Years Used Date Smoking Tobacco: Never Smokeless Tobacco: Never Alcohol Use Standard Drinks/Week Comments Never 0 [...] drinks on one occasion? No t asked Sex Assigned at Date Recorded Female [...] Due Date Last Done Comments COVID-19 Vaccination (#1) 1945 Results Not on fileafter 05/31/2021 Insurance Payer Benefit Plan Subscriber ID Effective Phone Address Typ e / Group Dates MEDICARE MEDICARE PART [id number] 2012-Prese [phone] [facility] Medicare A AND B nt 82 SOLUTIONS [address] [place] [address] BLUE CROSS BCBS [place] PPO [id number] 2012-Prese [address] PPO BLUE [place]IELD POS nt 6[address] [place] [address] Care Teams Industrial Gas Production Operator Relationship Specialty Start Date End Date John Raza MD PCP - External Referring Internal Medicine 07/12/19 [facility] [place] [phone] Annabella Hickey MD PCP - General Breast Surgery 07/22/19 Jerry Raygoza Cardiology 07/25/19 MD Buddy [address] [place], [place] [id number] Pasquale Hamilton, Pulmonary Medicine 07/25/[address] [place] [address] [place], [place] [id number] Ajay Mcconnell, Ophthalmology 07/25/[address] [place] [address] Yamil Bowling MD Consulting Physician Cardiology 07/25/[address] [id number]
--- OUTSIDE RECORDS SUMMARY | 2022-05-31 12:37 | XMS REPORT | Continuity of Care Document ---
:[address] [facility] t Address [address] [place] [address] Care Team Providers Name Role Phone Annabella Hickey MD Primary Care Physician Problems Condition Condition Condition Status Onset Resolution Last Treating Co mments Source Name Details Category Date Date Treatment Clinician Date Mammograph Mammograph Disease Active U nivers y abnormal y abnormal 3-12 it y of 00:00: [place] 00 MD [facility] SOB SOB Disease Active Last Methodi (shortness (shortness 6-[address] of breath) of breath) 00:00: t & Plan: Hospita 00 Formattin l g of this note might be different from the original. Uses oxygen 2 LPM and doing well Sleep Sleep Disease Active Methodi apnea, apnea, 6-04 st obstructiv obstructiv 00:00: Ho spita e e 00 l GERD GERD Disease Active Last Methodi (gastroeso (gastroeso 6-[address] phageal phageal 00:00: t & Plan: Hospi ta reflux reflux 00 Formattin l disease) disease) g of this note might be different from the original. Re-start reflux medsPatie nt advised to Follow Aspiratio n precautio ns Elevate head of the bed by 4-5 inchesWai t at least 3 hours between meals and laying down SSS (sick SSS (sick Disease Active Met hodi sinus sinus 5-02 st syndrome) syndrome) 00:00: Hosp deanna 00 l Stage 3 Stage 3 Disease Active Methodi chronic chronic 09-06 st kidney kidney 00:00: Hospita disease disease 00 l Urinary Urinary Disease Active Methodi tract tract 09-06 st infection infection 00:00: Hosp deanna 00 l Essential Essential Disease Active Last Met hodi hypertensi hypertensi 09-[address] on on 00:00: t & Plan: Hospita 00 Formattin l g of this note might be different from the original. 160/60 mmhgBharathi carter checked right arm f/u with her pcp Bradycardi Bradycardi Disease Active M ethodi a a 08-17 st 00:00: Hospita 00 l medical terminologist medical terminologist Disease Active Last Met hodi current current 08-[address] use of use of 00:00: t & Plan: Hospita anticoagul anticoagul 00 Formattin l ant ant g of this therapy therapy note might be different from the original. Warfarin 2 mg daily No IVC filterHx PE Chronic Chronic Disease Active Methodi kidney kidney 08-17 st disease disease 00:00: Hospita 00 l Chronic Chronic Disease Active Last Methodi obstructiv obstructiv 08-[address] e e 00:00: t & Plan: Hospita pulmonary pulmonary 00 Formattin l disease disease g of this note might [...] use History of History of Disease Active M ethodi deep deep 08-17 st venous venous 00:00: Hospita thrombosis thrombosis 00 l Hyperkalem Hyperkalem Disease Active M ethodi ia ia 08-17 00:00: Hospita 00 l Hypothyroi Hypothyroi Disease Active M ethodi dism dism 08-17 00:00: Hospita 00 l Pulmonary Pulmonary Disease Active Met hodi edema edema 08-17 00:00: Hospita 00 l Pulmonary Pulmonary Disease Active Last Met hodi hypertensi hypertensi Assessmen st on on 00:00: t & Plan: Hospita 00 Formattin l g of this note might be different from the original. No gradient across pulmonary vasculatu reGood cardiac outputs/p pacemaker placement No need for PH - pulmonary vasodilat or therapy Syncope Syncope Disease Active Methodi 08-17 st 00:00: Hospita 00 l Elevated Elevated Disease Active Metho di internatio internatio 10-12 st nal nal 00:00: Hospita normalized normalized 00 l ratio ratio (INR) (INR) Bradycardi Bradycardi Disease Active Overview : Univers a a 05-15 Formattin ity of 00:00: g of this [place] note might be Anderso different n from the Cancer original. Center s/p pacemaker Ventricula Ventricula Disease Active Overview : Univers r septal r septal 05-15 Formattin ity of defect defect 00:00: g of this [place] note might be Anderso different n from the Cancer original. Center s/p VSD repair Anemia of Anemia of Disease Active Uni vers chronic chronic ity of disease disease [place] MD [facility] Stenosis Stenosis Disease Active Overview: Un savi of of Formattin ity of pulmonary pulmonary g of this [place] artery artery note might be Anderso different n from the Cancer original. Center Requires 2L 02 at night time only. Dependence Dependence Disease Active U nivers [place] oxygen oxygen therapy [facility] Hyperlipid Hyperlipid Disease Active U nivers emia emia ity of [place] MD [facility] Hypertensi Hypertensi Disease Active U nivers on on ity of [place] MD [facility] Depressive Depressive Disease Active U nivers disorder disorder ity of [place] MD [facility] Pulmonary Pulmonary Disease Active Overview: Univers embolism embolism Formattin ity of g of this [place] note might be Anderso different n from the Cancer original. Center on chronic coumadin Pulmonary Pulmonary Disease Active Uni vers embolism embolism ity of on on [place] long-term long-term anticoagul anticoagul An derso ation ation n therapy therapy Cancer Center Allergies, Adverse Reactions, Alerts Allergy Allergy Status Severity Reaction(s) Onset Inactive Treating Comm ents Source Name Type Date Date Clinician Tetanus Propensi Active Other (See Uni vers Immune ty to Comments) 09-13 ity of Globulin adverse 00:00: [place] reaction 00 MD arturo hernandez [facility] Tetanus Propensi Active Other (See Met hodi Immune ty to Comments) 09-13 st Globulin adverse 00:00: Hospita reaction 00 l s to drug Codeine Propensi Active Methodi ty to 25 st adverse 00:00: Hospita reaction 00 l s to drug Meperidi Propensi Active Method i ne ty to [address] st adverse 00:00: Hospita reaction 00 l s to drug Sulfa Propensi Active Methodi (Sulfona ty to 25 st mide adverse 00:00: Hospita Antibiot reaction 00 l ics) s to drug Codeine Propensi Active Nausea And Uni vers ty to Vomiting 4-25 ity of adverse 00:00: [place] reaction 00 MD arturo hernandez [facility] Meperidi Propensi Active Nausea And Un savi ne ty to Vomiting 4-25 ity of adverse 00:00: [place] reaction 00 MD arturo hernandez [facility] Sulfa Propensi Active Swelling Univer s (Sulfona ty to 4-25 ity of mide adverse 00:00: [place] Antibiot reaction 00 ics) [facility] Family Member Diagnosis Comments Start Date Stop Date Source Natural [facility] Natural father Mesothelioma [facility] [place] Natural mother Hy[facility] Other Pancreatic cancer [facility] [place] Family member Breast cancer [facility] [place] Family member Ovarian cancer [facility] [place] Social History Social Habit Start Date Stop Date Quantity Comments Source History SDOH University o f Alcohol Comment [place] [facility] [place] History SDOH University o f Alcohol Std [facility] History [facility] University o f Alcohol Binge Jeniffer phelps [facility] Tobacco use and 2019-07-25 2019-07-25 Smokeless tobacco Un iversity of exposure 00:00:00 00:00:00 non-user [facility] History SDOH 2019-07-25 2019-07-25 1 University o f Alcohol Frequency 00:00:00 00:00:00 [facility] Alcohol intake 2017-10-16 2017-10-16 Current Rastafari 00:00:00 00:00:00 non-drinker of Hospital alcohol (finding) Sex Ass[birth year] At [birth year] Rast[facility] 00:00:00 00:00:00 Hospital Smoking Status Start Date Stop Date Source Never smoked tobacco [facility] Medications Ordered Filled Start Stop Current Ordering Indication Dosage Frequency Signature Comments Components Source Medication Medication Date Date Medication? Clinician (SIG) Name Name doxazosin 2020-0 Yes 4mg Take 4 mg Uni vers (CARDURA) 4 3-12 by mouth ity of mg tablet 14:13: twice [place] daily. MD Viviana hernandez [facility] fluticasone 2020-0 Yes 2{puff} Inhale 2 Univers propionate- 3-12 puffs by ity of salmeterol 14:13: mouth. (ADVAIR) 250 mcg-50 Anderso mcg/inhalat n ion diskus Cancer inhaler Center furosemide 2020-0 Yes 40mg Take 40 mg U nivers (LASIX) 40 3-12 by mouth. ity of mg tablet 14:13: [place] MD Viviana hernandez [facility] levothyroxi 2020-0 Yes 88ug Take 88 Uni vers ne 3-12 mcg by ity of (SYNTHROID, 14:13: [place] LEVOT[place]) 88 mcg Anderso kendra [facility] doxazosin 2020-0 Yes 4mg Take 4 mg Uni vers (CARDURA) 4 3-12 by mouth ity of mg tablet 14:13: twice [place] daily. MD Viviana hernandez [facility] fluticasone 2020-0 Yes 2{puff} Inhale 2 Univers propionate- 3-12 puffs by ity of salmeterol 14:13: mouth. (ADVAIR) 09 250 mcg-50 [place] mcg/inhalat n ion diskus Cancer inhaler Center furosemide 2020-0 Yes 40mg Take 40 mg U nivers (LASIX) 40 3-12 by mouth. ity of mg tablet 14:13: [place] MD Viviana hernandez [facility] levothyroxi 2020-0 Yes 88ug Take 88 Uni vers ne 3-12 mcg by ity of (SYNTHROID, 14:13: mouth. Braulio morris LEVOTHROID) 09 88 mcg [place] tablet n Cancer Center TART FERNANDEZ 2020-0 Yes 1200mg Take 1,200 Univers EXTRACT 3-12 mg by ity of ORAL 14:13: mouth. 08 MD [facility] cholecalcif 2020-0 Yes [id number][i Take Uni vers johana, 3-12 U] 15,000 ity of vitamin D3, 14:13: Int'l [place] (VITAMIN D3 08 Units by ORAL) mouth Anderso every 30 n (thirty) Cancer days. Center vit A/vit 2020-0 Yes 1{tbl} Take 1 Univ ers C/vit 3-12 tablet by ity of E/zinc/tiffanie 14:13: mouth. Braulio Greco MD (ERVCLAIRE Michelle ON AREDS n ORAL) Cancer Center amLODIPine 2020-0 Yes 5mg Take 5 mg Un savi (NORVASC) 5 3-12 by mouth. ity of mg tablet 14:13: MD [facility] calcitriol 2020-0 Yes .25ug Take 0.25 U nivers (ROCALTROL) 3-12 mcg by ity of 0.25 mcg 14:13: mouth 2 capsule 08 (two) times a Anderso week MTH. n Cancer Center TART FERNANDEZ 2020-0 Yes 1200mg Take 1,200 Univers EXTRACT 3-12 mg by ity of ORAL 14:13: mouth. 08 MD [facility] cholecalcif 2020-0 Yes [id number][i Take Uni vers johana, 3-12 U] 15,000 ity of vitamin D3, 14:13: Int'l [place] (VITAMIN D3 08 Units by ORAL) mouth Anderso every 30 n (thirty) Cancer days. Center vit A/vit 2020-0 Yes 1{tbl} Take 1 Univ ers C/vit 3-12 tablet by ity of E/zinc/tiffanie 14:13: mouth. Braulio Greco MD (FIDELIA Michelle ON AREDS n ORAL) Cancer Center amLODIPine 2020-0 Yes 5mg Take 5 mg Un savi (NORVASC) 5 3-12 by mouth. ity of mg tablet 14:13: 08 MD [facility] calcitriol 2019-0 Yes .25ug Take 0.25 U nivers (ROCALTROL) 3-12 mcg by ity of 0.25 mcg 14:13: mouth 2 [place] capsule 08 (two) times a [facility] citalopram 2019-0 Yes Univers (CeleXA) 10 3-06 ity of mg tablet 00:00: 00 [facility] famotidine 2019-0 Yes Univers (PEPCID) 20 3-06 ity of mg tablet 00:00: 00 [facility] citalopram 2019-0 Yes Univers (CeleXA) 10 3-06 ity of mg tablet 00:00: 00 [facility] famotidine 2019-0 Yes Univers (PEPCID) 20 3-06 ity of mg tablet 00:00: 00 [facility] warfarin 2019-0 Yes 2{tbl} Take 2 Unive rs (COUMADIN) 2-12 tablets by ity of 1 mg tablet 00:00: mouth [place] 00 daily. [facility] warfarin 2020-0 Yes 2{tbl} Take 2 Unive rs (COUMADIN) 2-12 tablets by ity of 1 mg tablet 00:00: mouth [place] 00 daily. [facility] hydrALAZINE 2019-0 Yes 1{tbl} Take 1 Un savi (APRESOLINE 2-03 tablet by ity of ) 50 mg 00:00: mouth [place] tablet 00 twice MD daily. [facility] hydrALAZINE 2019-0 Yes 1{tbl} Take 1 Un savi (APRESOLINE 2-03 tablet by ity of ) 50 mg 00:00: mouth [place] tablet 00 twice MD daily. [facility] citalopram 0 Yes 10mg QD Take 10 mg M ethodi (CeleXA) 20 6-[address] MG tablet 14:38: daily. Hospit a 58 l calcitriol 2017-0 Yes .25ug QD Take 0.25 M ethodi (ROCALTROL) 6-[address] 0.25 MCG 14:38: mouth Hospita capsule 58 daily. l cholecalcif 0 Yes [id number] Q30D Take Meth jason johana, 6-[address] vitamin D3, 14:38: Units by Ho spita (VITAMIN 58 mouth l D3) 1,000 every 30 unit tablet (thirty) days. hydrALAZINE 2017-0 Yes 25mg Q.[id number] Take 25 mg Methodi (APRESOLINE 6-04 [id number] [address] mouth [address] st ) 25 MG 14:38: 3D (three) Hospita tablet 58 times a l day. amLODIPine 2018-0 Yes 5mg Q.5D Take 5 mg Me thodi (NORVASC) 5 6-[address] mg tablet 14:38: (two) Hospita 58 times a l day. furosemide 2017-0 Yes 40mg Take 40 mg M ethodi (LASIX) 40 6-[address] mg tablet 14:38: as needed. Ho spita 58 For l swelling levothyroxi 2017- Yes 88ug QD Take 88 Met hodi ne 6-[address] (SYNTHROID, 14:38: mouth Hospi ta LEVOXYL) 88 58 every l mcg tablet morning. albuterol 0 Yes 2{puff} Q.[id number] Inhale 2 Methodi (PROAIR 6-[id number] HFA,PROVENT 14:38: 3D (three) Hos [place] 58 times a l HFA,VENTOLI day. N HFA) 90 mcg/actuati on inhaler warfarin Yes 2mg QD Take 2 mg Meth jason (COUMADIN) 6-[address] 2 MG tablet 14:38: daily. Hosp deanna 58 l fluticasone 2017-0 Yes 2{puff} QD Inhale 2 Methodi -salmeterol 6-[address] (ADVAIR) 14:38: daily. Hospita 250-50 58 l mcg/dose DISKUS pantoprazol 2017-0 Yes BEFORE Meth jason e 4-[address] (PROTONIX) 00:00: Hospita 40 MG EC 00 l tablet warfarin 2015-0 Yes DAILY AT Metho di (COUMADIN) 5-[address] 2 MG tablet 00:00: Hospit a 00 l Procedures This patient has no known procedures. Plan of Care Planned Activity Planned Date Details Comments Source Future Scheduled 2022-05-31 COVID-19 VACCINE (#1) [facility] [place] Test 12:37:02 [code = COVID-19 VACCINE (#1)] Future Scheduled 2022-05-[address] [facility] Test 12:37:02 SCREENING [code = BREAST CANCER SCREENING] Future Scheduled 2022-05-31 COLONOSCOPY SCREENING [facility] [place] Test 12:37:02 [code = COLONOSCOPY SCREENING] Future Scheduled 2022-05-31 SHINGLES VACCINES (1 Met [facility] Test 12:37:02 of 2) [code = SHINGLES VACCINES (1 of 2)] Future Scheduled 2022-05-31 65+ [facility] [facility] Test 12:37:02 VACCINE (1 - PCV) [code = 65+ PNEUMOCOCCAL VACCINE (1 - PCV)] Future Scheduled 2022-05-31 INFLUENZA VACCINE Method [facility] Test 12:37:02 [code = INFLUENZA VACCINE] Future Scheduled 2021-11-17 COVID-19 Vaccination [facility] [place] Test 06:46:29 (#1) [code = KEVINID-Neema [facility] Vaccination (#1)] Center Future Scheduled 2021-06-02 COVID-19 Vaccination [facility] [place] Test 06:16:12 (1) [code = COVID-19 [facility] Vaccination (1)] Center Results This patient has no known results.
[2022-05-31] MEDS ORDERED: INFLUENZA VACCINE (for 6+ mo) 0.5 ML DOSE IMVAC ONE (14:00)
[2022-05-31] MEDS ORDERED: FUROSEMIDE 20 MG/ 2ML VIAL IV ONE (14:21)
[2022-05-31 14:52] LABS: Protime INR 2.22
[2022-05-31 14:53] LABS: Absolute Lymphocytes (CBC) 0.6 K/uL (0.7-4.9); Hematocrit 27.5 % (36.0-45.0); Lymphocytes % 14.9 % (15.3-44.8); MCV 81.2 fL (80-100); MPV 9.5 fL (7.6-11.3); RBC Red Blood Cell Count 3.39 M/uL (3.86-4.86)
[2022-05-31 15:13] LABS: Albumin 3.4 g/dL (3.4-5.0); Bilirubin Total 0.6 mg/dL (0.2-1.0); Magnesium 2.2 mg/dL (1.6-2.4); Potassium 5.2 mmol/L (3.5-5.1); Protein, Total 7.3 g/dL (6.4-8.2); Thyroid Stimulating Hormone 2.67 uIU/mL (0.358-3.740); Troponin High Sensitivity 20.4 pg/mL (<58.9)
--- NOTE | 2022-05-31 15:33 | RAD REPORT ---
EXAM DESCRIPTION: RAD - Chest Single View - 05/31/2022 3:24 pm CLINICAL HISTORY: CHF COMPARISON: Chest Pa And Lat (2 Views) dated 09/07/2021; Chest Pa And Lat (2 Views) dated 10/20/2020; C hest Pa And Lat (2 Views) dated 08/27/2020; Chest Pa And Lat (2 Views) dated 08/26/2020 FINDINGS: Lines: Pacemaker Lungs: Coarsened interstitium. Pleural: Small pleural effusions. Cardiac: Cardiomegaly. Mediastinum: Within normal limits. Bones: No acute fractures. Other: Sternotomy. IMPRESSION: Coarsened interstitium and small pleural effusion likely reflects mild interstitial anthony a.
[2022-05-31] MEDS: WARFARIN SODIUM 3 MG TAB PO SCH (16:47)
[2022-05-31] MEDS ORDERED: AMLODIPINE 2.5 MG TAB PO SCH (21:00)
[2022-05-31] MEDS ORDERED: HYDRALAZINE HCL 25 MG TABLET PO SCH (21:00)
[2022-06-01] MEDS: LEVOTHYROXINE SOD 0.1 MG TAB PO SCH (06:34)
--- NOTE | 2022-06-01 06:54 | HP ---
Date of Admission: 05/31/2022 Chief Complaint: Shortness of breath. History Of Present Illness: Ms. Dill is a very pleasant 77-year-old female patient, who came in to our office with her with 1-month history of increasing shortness of breath and feeling tir ed. The patient is getting short of breath with any daily activities including just walking in the r oom. Today, she was brought into office in a wheelchair. She is on continuous home oxygen. Denies any chest pain, fever, chills, nausea, or vomiting. No expectoration. No diarrhea. No chest pain. No blood in urine or stool. After she was evaluated, decision was made to admit her to the hospital for further evaluation and management. Allergies: TO CODEINE, CAUSING NAUSEA; DEMEROL, CAUSING NAUSEA; SULFA, CAUSING NAUSEA. Medications: Warfarin 1 mg, she takes 2 tablets daily from Monday through Monday and 1-1/2 tablet on Monday and Monday. Levothyroxine 100 mcg daily; hydralazine 50 mg, she takes 2 tablets 2 times a day; Advair, 1 puff 2 times a day; Angelika 110 mg daily as needed for allergies; famotidine 20 mg kiana ly at bedtime; citalopram 10 mg daily with breakfast; carvedilol 6.25 mg 2 times a day; calcitriol 0. 25 mcg p.o. daily; and amlodipine 5 mg 2 times a day. Review of Systems: Cardiovascular: As mentioned above. Respiratory: As mentioned above. All other systems reviewed and negative. Past Medical History: Significant for hypothyroidism, COPD, hypertension, hyperlipidemia, ventricula r septal defect, chronic kidney disease, anemia due to chronic kidney disease, depression, chronic di astolic heart failure, chronic anticoagulation use, pulmonary hypertension due to left heart disease, compression fracture of thoracic spine. Past Surgical History: Pacemaker placement; VSD repair, which is ventricular septal defect repair; c holecystectomy. Family History: Father had hypertension and Parkinson disease. Mother has COPD and dementia. Broth er pancreatic cancer and COPD. Social History: Negative for smoking and alcohol use. Physical Examination: Vital Signs: When she came into office today, blood pressure was 142/55, pulse 62, respiratory rate 15, temperature 97.2, weight 105.4 pounds, height 63 inches. Oxygen saturation at rest at office wit h using her oxygen was 99%. General: Awake, alert, oriented, not in distress. HEENT: Head atraumatic, normocephalic. Conjunctivae nonerythematous. Sclerae white. Mouth, no thr ush or edema noted. Ears/Nose, no mass, lesion, discharge noted. Neck: Supple. No JVD, lymph nodes, bruit, thyromegaly noted. Lungs: Presence of rales noted in lower half of both lung region. Not using accessory muscles of re spiration at rest. Heart: Presence of systolic murmur. No gallop. Abdomen: Soft, bowel sounds normal. No guarding, rigidity, tenderness, mass, hepatosplenomegaly, dis tention, or bruit noted. Extremities: No leg edema. No calf tenderness. Skin: No rash, ulcer, cellulitis. Lymphatics: No lymph node enlargement in neck, supraclavicular, infraclavicular region. Neuro: No focal neurological deficit. Chest: Unremarkable. External Genitalia: Deferred. Rectal: Deferred. Laboratory Data: WBC 4.1, hemoglobin 8.5, platelets 129. INR 2.32. Sodium 142, potassium 5.2, chlo ride 107, bicarb 27, BUN 52, creatinine 2.01, glucose 110. Liver function tests unremarkable. Tropo saba 20.4. ProBNP 5050. Chest x-ray, increased lung markings in both lungs. Impression: 1.Chronic diastolic heart failure with acute exacerbation. 2.Anemia due to chronic kidney disease. 3.Chronic kidney disease, stage 3A. 4.Hypertension. 5.Hyperlipidemia. 6.Hypothyroidism. 7.Chronic anticoagulation. 8.Pulmonary hypertension due to left heart disease. Plan: We will admit the patient to hospital for further evaluation and management of this problem. The patient is appropriate for inpatient and is expected to spend 2 midnights in hospital. For conge stive heart failure, we will go ahead and get echo with Doppler to evaluate left ventricular ejection fraction and we will start her on IV Lasix per order. We will go ahead and monitor electrolyte and renal function. The patient should be on 2 g sodium diet. For hypertension, we will continue antihy pertensive medications per order and if necessary make adjustment on blood pressure medications. For anemia problem, we will go ahead and monitor hemoglobin. If necessary consider blood transfusion, b ut it is not necessary at this level. We will monitor with blood work while in the hospital. Matheus bahena kidney disease will be monitored while she is on IV diuretic therapy and she sees stick inserter on o utpatient basis. If necessary, we will consider consultation if there is any significant deteriorati on of the renal function. Otherwise, it will not be necessary to do so. For her chronic anticoagula tion use, we will continue her warfarin. Monitor her PT/INR periodically. For chronic respiratory f ailure with hypoxia, she remains on oxygen at 2 L/minute, which we will continue that. Details of pl an of treatment discussed with the patient and her . MARY/MODL Voice ID: [id number]
--- NOTE | 2022-06-01 07:31 | EKG ---
Test Date: 2022-05-31 Test Time: 14:25:55 Retail Department Supervisor: STEVEN MEASUREMENT RESULTS: Intervals: Rate: 62 MO: 184 QRSD: 146 QT: 466 QTc: 472 Dale: P: 93 MO: 184 QRS: 131 T: 36 INTERPRETIVE STATEMENTS: Suspect arm lead reversal, interpretation assumes no reversal Electronic atrial pacemaker Right bundle branch block Abnormal ECG Compared to ECG 03/11/2020 18:46:42 Sinus rhythm no longer present Ventricular premature complex(es) no longer present Electronically Signed On 06-01-22 07:31:24 OFFICE MACHINES SALES REPRESENTATIVE by Jerry Raygoza
[2022-06-01] MEDS: HYDRALAZINE HCL 25 MG TABLET PO SCH ×2 (08:51→20:50)
[2022-06-01] MEDS: FUROSEMIDE 20 MG/ 2ML VIAL IV SCH ×2 (08:51→15:53)
[2022-06-01] MEDS: AMLODIPINE 5 MG TAB PO SCH ×2 (08:51→20:51)
[2022-06-01] MEDS: CITALOPRAM 10 MG TABLET PO SCH (08:51)
[2022-06-01] MEDS ORDERED: HOME MED 1 EA UNK (Levothyroxine Sodium [Levothyroxine] 100 MCG Capsule) PO SCH (09:00)
[2022-06-01] MEDS: WARFARIN SODIUM 2 MG TAB PO SCH (15:52)
--- NOTE | 2022-06-01 20:21 | PN ---
Subjective: The patient was seen this morning for followup. No new complaints or problems reported by her. She was lying in bed, not in distress. Objective: Vital Signs: Reviewed. HEENT: Unremarkable. Lungs: Bilateral good equal air entry, presence of rales noted in lower lung dominguez, overall slightl y better today than yesterday. Heart: Sounds normal. Abdomen: Soft. Bowel sounds normal. No guarding, rigidity, tenderness, or distention. Extremities: No leg edema. Impression: 1.Congestive heart failure. 2.Hypertension. 3.Chronic kidney disease. 4.Chronic anticoagulation therapy. Plan: We will continue current diuretic therapy, Lasix per order. Continue current antihypertensive medications. We will continue warfarin per order. Repeat blood work tomorrow morning including PT/ INR and I will see her tomorrow for followup. Physical Therapy to help ambulate the patient. Echo w ill be done today. We will follow up on results. MARY/MODL Voice ID: [id number] Report ID: [id number]
[2022-06-02 04:13] LABS: Absolute Lymphocytes (CBC) 1.1 K/uL (0.7-4.9); Hematocrit 25.1 % (36.0-45.0); Lymphocytes % 24.3 % (15.3-44.8); MCV 80.7 fL (80-100); MPV 10.1 fL (7.6-11.3); RBC Red Blood Cell Count 3.11 M/uL (3.86-4.86)
[2022-06-02 04:14] LABS: Protime INR 2.64
[2022-06-02 04:41] LABS: Magnesium 2.1 mg/dL (1.6-2.4); Potassium 5.2 mmol/L (3.5-5.1)
[2022-06-02] MEDS: LEVOTHYROXINE SOD 0.1 MG TAB PO SCH (06:22)
--- NOTE | 2022-06-02 07:21 | ECHO ---
HEIGHT: 5 ft 3 in WEIGHT: 104 lb 9.6 oz DATE OF STUDY: 06/01/[address]: John Raza MD 2-DIMENSIONAL: YES M.MODE: YES DOPPLER: YES COLOR FLOW: YES TDS: NO PORTABLE: YES DEFINITY: NO BUBBLE STUDY: NO DIAGNOSIS: CONGESTIVE HEART FAILURE CARDIAC HISTORY: CATHERIZATION: NO SURGERY: YES PROSTHETIC VALVE: NO PACEMAKER: YES MEASUREMENTS (cm) DIASTOLIC (NORMALS) SYSTOLIC (NORMALS) IVSd 1.0 (0.6-1.2) LA Diam 2.7 (1.9-4.0) LVEF 77% LVIDd 3.9 (3.5-5.7) LVIDs 2.2 (2.0-3.5) %FS 45% LVPWd 1.0 (0.6-1.2) Ao Diam 1.8 (2.0-3.7) 2 DIMENSIONAL ASSESSMENT: RIGHT ATRIUM: ENLARGED LEFT ATRIUM: NORMAL RIGHT VENTRICLE: DILATED RIGHT VENTRICLE LEFT VENTRICLE: NORMAL TRICUSPID VALVE: SEVERE TRICUSPID REGURGITATION MITRAL VALVE: MILD MITRAL REGURGITATION PULMONIC VALVE: PULMONIC STENOSIS AORTIC VALVE: NORMAL PERICARDIAL EFFUSION: TRACE AORTIC ROOT: NORMAL LEFT VENTRICULAR WALL MOTION: NORMAL. DOPPLER/COLOR FLOW: SEE BELOW. COMMENTS: 1. NORMAL LEFT VENTRICULAR EJECTION FRACTION 60-65% WITH NORMAL WALL MOTION. 2. SEVERELY DILATED RIGHT VENTRICLE WITH MILD DYSFUNCTION. 3. SEVERE PULMONARY HYPERTENSION WITH RIGHT VENTRICULAR SYSTOLIC PRESSURE GREATER THAN 150mmHg. 4. MILD MITRAL REGURGITATION 5. SEVERE TRICUSPID REGURGITATION 6. QUESTIONABLE PULMONIC VALVE STENOSIS. TECHNOLOGIST: CHRISTIANO GARY
[2022-06-02] MEDS: FUROSEMIDE 20 MG/ 2ML VIAL IV SCH ×2 (08:43→16:51)
[2022-06-02] MEDS: CITALOPRAM 10 MG TABLET PO SCH (08:43)
[2022-06-02] MEDS: AMLODIPINE 5 MG TAB PO SCH ×2 (08:43→20:41)
[2022-06-02] MEDS: HYDRALAZINE HCL 25 MG TABLET PO SCH ×2 (08:44→20:42)
[2022-06-02] MEDS: FAMOTIDINE 20 MG TAB PO SCH (08:44)
[2022-06-02] MEDS ORDERED: NA CHLORIDE 0.9% 250 ML ONE (12:05)
[2022-06-02] MEDS: WARFARIN SODIUM 3 MG TAB PO SCH (16:50)
[2022-06-02 18:19] LABS: Hematocrit 34.4 % (36.0-45.0)
--- NOTE | 2022-06-02 22:01 | PN ---
Date of Progress Note: 06/02/2022 Subjective: Patient was seen this morning for followup. No new complaints or problems reported by h er. Lying in bed, not in any distress. Objective: Vital Signs: Reviewed. HEENT: Unremarkable. Lungs: Clear to auscultation except basal rales noted. Heart: Sounds normal. Abdomen: Soft. Bowel sounds normal. No guarding, rigidity, tenderness, or distention. Extremities: No leg edema. Laboratory Data: Echocardiogram result pending. White count 4.7, hemoglobin 7.8, platelets 127. So dium 140, potassium 5.2, chloride 106, bicarb 31, BUN 51, creatinine 2.13, glucose 92. ProBNP 6558. Impression: 1.Congestive heart failure. 2.Chronic kidney disease. 3.Hypertension. 4.Anemia due to chronic kidney disease. Plan: Different causes of anemia explained to patient including anemia due to chronic kidney disease and even though she does not have any signs and symptoms of GI blood loss, one has to keep that in b ack of mind also. Patient's risk procedure is more than the benefit and I did discuss all these details which patient and her both understands and recommended blood transfusion using 1 unit of PRBC and they agree. We will continue current medications including Lasix. Follow up on echocardiogram results and I will see her tomorrow for followup. MARY/MODL Voice ID: [id number] Report ID: [id number]
[2022-06-03] MEDS: LEVOTHYROXINE SOD 0.1 MG TAB PO SCH (06:20)
[2022-06-03] MEDS: FUROSEMIDE 20 MG/ 2ML VIAL IV SCH ×2 (08:22→17:39)
[2022-06-03] MEDS: CITALOPRAM 10 MG TABLET PO SCH (09:18)
[2022-06-03] MEDS: HYDRALAZINE HCL 25 MG TABLET PO SCH ×2 (09:18→21:02)
[2022-06-03] MEDS: FAMOTIDINE 20 MG TAB PO SCH (09:19)
[2022-06-03] MEDS: AMLODIPINE 5 MG TAB PO SCH ×2 (09:19→21:01)
[2022-06-03 13:54] VITALS: BMI 16.0
[2022-06-03] MEDS: WARFARIN SODIUM 2 MG TAB PO SCH (17:40)
--- NOTE | 2022-06-03 20:02 | RAD REPORT ---
EXAM DESCRIPTION: RAD - Chest Pa And Lat (2 Views) - 06/03/2022 7:49 pm CLINICAL HISTORY: CHF COMPARISON: Portable chest 05/31/2022, two view chest 09/07/2021 TECHNIQUE: Frontal and lateral views of the chest were obtained. FINDINGS: The lungs are fibrotic as a baseline. Interstitial markings remain prominent. Left subcla vian pacemaker is in place. Small to moderate-sized right pleural effusion is present. No pneumothora x. Heart size is upper normal. Vasculature is within range of normal. No acute bony finding noted. No aortic abnormality. IMPRESSION: Heart, vasculature and lung markings are prominent, similar to May 31 imaging. Right -sided pleural effusion is present and has probably enlarged slightly since the . Findings would be consistent with the provided clinical history of CHF.
[2022-06-03] MEDS: DOXAZOSIN 2 MG TAB PO SCH (21:00)
--- NOTE | 2022-06-03 22:54 | DS ---
Date of Discharge: 06/03/2022 Disposition: Discharged to go home. Physical Examination: HEENT: Unremarkable. Lungs: Bilateral good equal air entry, not in respiratory distress. Clear to auscultation. Heart: Presence of murmur noted, unchanged from before. Abdomen: Soft. Bowel sounds normal. No guarding, rigidity, tenderness, distention. Extremities: No leg edema. Laboratory Data: Upon admission; sodium 142, potassium 5.2, chloride 107, bicarb 27, BUN 52, creatin ine 2.01, glucose 110. Liver function tests unremarkable. TSH 2.67. Yesterday, sodium 140, potassi um 5.2, chloride 106, bicarb 31, BUN 51, creatinine 2.13, estimated GFR 24, glucose 92, magnesium 2.1 . Upon admission; white count 4.1, hemoglobin 8.5, platelets 129. Yesterday morning; white count 4. 7, hemoglobin 7.8, platelets 127 and after 1 unit of PRBC blood transfusion hemoglobin came up to 11. Echocardiogram shows normal ejection fraction of 77%, severe pulmonary hypertension with right vent ricular systolic pressure greater than 150, severely dilated right ventricle with mild mitral regurgi tation, severe tricuspid regurgitation, questionable pulmonic valve via LV stenosis. Hospital Course: This is a very pleasant 77-year-old female patient admitted to the hospital with co mplaints of shortness of breath. Please see dictated H and P for more information. The patient was evaluated at office and was admitted to the hospital directly for further management of this problem. After she came into the hospital, we started her on IV diuretic therapy, which was Lasix 20 mg IV 2 times a day. Her home medications were continued for blood pressure control. The patient is on chr onic anticoagulation therapy with warfarin and this was continued as well. During this hospitalizati on, her condition improved. Yesterday, she had anemia problem requiring 1 unit of PRBC transfusion a nd after blood transfusion, her hemoglobin came up. She does not have any obvious signs or symptoms of any GI bleeding. Different causes of anemia discussed with her and her in view of her ove rall comorbidities. Risk of any endoscopic procedure is more than the benefit. So at this point, it is not recommended to pursue any further endoscopy procedures for investigation purpose. Patient an d her both understand that, as I have discussed this with them yesterday. Today, she looks a lot better. She feels a lot better and feels like she is almost back to her baseline. Our plan is to discharge her to go home. Her blood pressure has remained elevated and we will discharge with benjie e additional antihypertensive medications. Discharge Medications And Instructions: 1.Continue all prior home medications. 2.Doxazosin 1 mg take 1 tablet by mouth 2 times a day. 3.Furosemide 20 mg take 1 tablet by mouth daily. 4.Follow up at my office next week. Discharge Diagnoses: 1.Chronic diastolic heart failure, with acute exacerbation. 2.Anemia due to chronic kidney disease. 3.Chronic kidney disease, stage IV. 4.Hypertension. 5.Hyperlipidemia. 6.Hypothyroidism. 7.Chronic anticoagulation. 8.Pulmonary hypertension due to left heart disease. 9.Thrombocytopenia. 10.Hyperkalemia. MARY/MODL Voice ID: [id number] Report ID: [id number]
[2022-06-04] MEDS: LEVOTHYROXINE SOD 0.1 MG TAB PO SCH (06:05)
[2022-06-04 06:31] LABS: Absolute Lymphocytes (CBC) 0.9 K/uL (0.7-4.9); Hematocrit 29.5 % (36.0-45.0); Lymphocytes % 21.7 % (15.3-44.8); MCV 80.1 fL (80-100); MPV 9.6 fL (7.6-11.3); RBC Red Blood Cell Count 3.68 M/uL (3.86-4.86)
[2022-06-04 06:49] LABS: Magnesium 1.9 mg/dL (1.6-2.4); Potassium 4.6 mmol/L (3.5-5.1)
[2022-06-04] MEDS: FAMOTIDINE 20 MG TAB PO SCH (09:18)
[2022-06-04] MEDS: HYDRALAZINE HCL 25 MG TABLET PO SCH ×2 (09:18→20:52)
[2022-06-04] MEDS: AMLODIPINE 5 MG TAB PO SCH ×2 (09:20→20:53)
[2022-06-04] MEDS: DOXAZOSIN 2 MG TAB PO SCH ×2 (09:20→20:53)
[2022-06-04] MEDS: CITALOPRAM 10 MG TABLET PO SCH (09:21)
[2022-06-04] MEDS: FUROSEMIDE 20 MG/ 2ML VIAL IV SCH ×2 (09:21→17:31)
[2022-06-04] MEDS ORDERED: FUROSEMIDE 20 MG/ 2ML VIAL IV ONE (10:06)
[2022-06-04] MEDS: acetaZOLAMIDE 250 MG TAB PO SCH ×2 (11:14→20:52)
[2022-06-04 12:46] LABS: Arterial Blood Carboxyhemoglob 1.5 % (0-1.5); Blood Gas Oxyhemoglobin 61.6 % (94-97); Blood O2 Saturation 63.4 % (92-98.5)
--- NOTE | 2022-06-04 12:53 | PN ---
Date of Progress Note: 06/04/2022 Subjective: The patient was seen this morning for followup. No new complaints or problems reported by the patient. She was sitting in the bed with her oxygen. She is on oxygen per nasal cannula out this morning 8 L/minute. Yesterday, she was 6 L/minute. Her was present with her at bedside . She gets short of breath when she walks around, but no shortness of breath while she is sitting in the bed. Physical Examination: Vital Signs: This morning; temperature 98, pulse 62, respiratory rate 16, blood pressure 192/78. He r oxygen saturation was 90% on 8 L nasal cannula oxygen. General: Awake, alert, oriented, not in distress. HEENT: Head atraumatic, normocephalic. Conjunctivae nonerythematous. Sclerae white. Mouth, no thr ush or edema noted. Ears/Nose, no mass, lesion, discharge noted. Neck: Supple. No JVD, lymph nodes, bruit, thyromegaly noted. Lungs: Presence of rales noted in lower half of both lung dominguez. Heart: Sounds normal. Presence of systolic murmur unchanged. Abdomen: Soft. Bowel sounds normal. No guarding, rigidity, tenderness, distention. Extremities: No leg edema. Laboratory Data: White count 4.4, hemoglobin 9.6, platelets 116. Sodium 140, potassium 4.6, chlorid e 102, bicarb 35, BUN 56, creatinine 2.02, glucose 88, magnesium 1.9. ProBNP 7487. Impression: 1.Congestive heart failure, chronic, diastolic, with acute exacerbation. 2.Severe pulmonary hypertension due to left heart disease. 3.Hypertension. 4.Chronic kidney disease, stage 4. 5.Anemia due to chronic kidney disease. Plan: We will go ahead and increase dose of doxazosin from 1 mg 2 times a day to 2 mg 2 times a day. We will go ahead and increase dose of Lasix from 20 mg twice a day to 40 mg twice a day. We will g et arterial blood gas, add acetazolamide considering her bicarb has gone up to 35 and it is expected to go up more with higher dose of Lasix, so we will see how acetazolamide will help there and we will follow up on arterial blood gas results. will check to see if her home oxygen concentrator can deliver more than 5 L of nasal cannula oxygen and if it cannot, then we will have to make arrange ments for a different type of oxygen concentrator and that goes up to 10 L/minute nasal cannula oxyge n. Meanwhile, our goal is to try to improve her respiratory status to the extent where she does not require more than 3-4 L/minute at home. Overall prognosis is guarded. I have talked to her regardin g code status and she has not made any decision. She will communicate with her , so meanwhile she remains full code. MARY/MODL Voice ID: [id number] Report ID: [id number]
[2022-06-04 17:51] LABS: Protime INR 2.67
[2022-06-04] MEDS: WARFARIN SODIUM 3 MG TAB PO SCH (17:52)
[2022-06-04 18:03] LABS: Magnesium 1.9 mg/dL (1.6-2.4); Potassium 4.3 mmol/L (3.5-5.1)
--- NOTE | 2022-06-04 18:41 | PN ---
Subjective: The patient was seen this morning for followup. She was lying in bed, not in distress. Overall, she looks better and feels better. Objective: Vital Signs: Reviewed. HEENT: Unremarkable. Lungs: Bilateral good equal air entry. Presence of rales noted in the lung bases. Not using any ac cessory muscles of respiration. Heart: Sounds normal. Abdomen: Soft. Bowel sounds normal. No guarding, rigidity, tenderness, distention. Extremities: No leg edema. Laboratory Data: Reviewed. Impression: 1.Congestive heart failure, chronic, diastolic, with acute exacerbation. 2.Severe pulmonary hypertension due to left heart disease. 3.Pulmonary stenosis. 4.Hypertension. 5.Chronic anticoagulation therapy. Plan: We will go ahead and continue current Lasix. Repeat chest x-ray will be done today. Her oxyg en requirement has gone up, so we will not be able to discharge her to go home today considering she is requiring more oxygen. We will continue current diuretic therapy, continue current antihypertensi ve medication, monitor blood pressure and as it becomes necessary, make adjustment on antihypertensive medications. MARY/MODL Voice ID: [id number] Report ID: [id number]
[2022-06-05 06:42] LABS: Protime INR 2.79
[2022-06-05 06:51] LABS: Magnesium 1.9 mg/dL (1.6-2.4); Potassium 4.4 mmol/L (3.5-5.1)
[2022-06-05] MEDS: LEVOTHYROXINE SOD 0.1 MG TAB PO SCH (06:51)
[2022-06-05] MEDS: HYDRALAZINE HCL 25 MG TABLET PO SCH ×2 (08:53→21:07)
[2022-06-05] MEDS: acetaZOLAMIDE 250 MG TAB PO SCH ×2 (08:54→21:07)
[2022-06-05] MEDS: AMLODIPINE 5 MG TAB PO SCH ×2 (08:55→21:08)
[2022-06-05] MEDS: CITALOPRAM 10 MG TABLET PO SCH (08:55)
[2022-06-05] MEDS: FUROSEMIDE 20 MG/ 2ML VIAL IV SCH (08:56)
[2022-06-05] MEDS: DOXAZOSIN 2 MG TAB PO SCH ×2 (08:56→21:07)
[2022-06-05] MEDS: FAMOTIDINE 20 MG TAB PO SCH (08:56)
--- NOTE | 2022-06-05 13:54 | PN ---
Date of Progress Note: 06/05/2022 Subjective: The patient was seen this morning for followup. No new complaints or problems reported by her. Overall, she is feeling better than yesterday. After her arterial blood gas which was done yesterday, we noted that she was retaining carbon dioxide along with hypoxia, so we ordered BiPAP for nighttime use. This morning, she tells me that she was able to keep the BiPAP on for about 3 hours between 10:30 p.m. to 1:30 p.m. Overall, she feels better. This morning when I saw her, she was on nasal cannula oxygen about . Objective: Vital Signs: Reviewed. HEENT: Unremarkable. Lungs: Bilateral good equal air entry. Clear to auscultation except presence of rales noted in both lung lower 1/4 and this is better today than yesterday. Heart: Sounds normal. Abdomen: Soft. Bowel sounds normal. No guarding, rigidity, tenderness, distention. Extremity: No leg edema. Laboratory Data: INR 2.79 today. Sodium 140, potassium 4.4, chloride 98, bicarb 37, BUN 61, creatin ine 2.47, glucose 95, magnesium 1.9. Impression: 1.Congestive heart failure, chronic, diastolic, with acute exacerbation. 2.Chronic kidney disease, stage 4. 3.Anemia due to chronic kidney disease. 4.Chronic respiratory failure with hypercapnia. 5.Chronic respiratory failure with hypoxia. Plan: We will go ahead and continue acetazolamide 125 mg 2 times a day, which was started yesterday. We will continue current antihypertensive medications. We will stop IV Lasix considering worsening renal function. We will continue current oxygen replacement therapy and continue BiPAP at nighttime . We will have Social Service help make arrangements for BiPAP for home use and possible discharge to go home in the next 1 or 2 da ys. MARY/MODL Voice ID: [id number] Report ID: [id number]
[2022-06-05] MEDS ORDERED: ACETAMINOPHEN 500 MG TAB PO PRN (21:15)
[2022-06-06] MEDS: LEVOTHYROXINE SOD 0.1 MG TAB PO SCH (06:48)
[2022-06-06] MEDS: CITALOPRAM 10 MG TABLET PO SCH (08:43)
[2022-06-06] MEDS: FAMOTIDINE 20 MG TAB PO SCH (08:43)
[2022-06-06] MEDS: HYDRALAZINE HCL 25 MG TABLET PO SCH ×2 (08:44→21:31)
[2022-06-06] MEDS: AMLODIPINE 5 MG TAB PO SCH ×2 (08:44→21:31)
[2022-06-06] MEDS: DOXAZOSIN 2 MG TAB PO SCH ×2 (08:44→21:31)
[2022-06-06] MEDS: acetaZOLAMIDE 250 MG TAB PO SCH ×2 (08:45→21:29)
[2022-06-06] MEDS: WARFARIN SODIUM 2 MG TAB PO SCH (16:27)
--- NOTE | 2022-06-06 22:46 | PN ---
Date of Progress Note: 06/06/2022 Subjective: Patient was seen this morning for followup. No new complaints or problems reported by pacheco martin. She was lying in bed, not in distress. She did use her BiPAP machine all night and did not have any complaints this morning. She was on oxygen 4.5 L/minute nasal cannula this morning when I s aw her for about an hour or so, and I did reduce it to 4 L/minute. Her goal is to get it down to 3 L /minute if she tolerates it. Objective: Vital Signs: Reviewed. HEENT: Unremarkable. Lungs: Clear to auscultation. No wheezing. No rales. Heart: Sounds normal. Abdomen: Soft. Bowel sounds normal. No guarding, rigidity, tenderness, distention. Extremities: No leg edema. Impression: 1.Chronic respiratory failure with hypoxia and hypercapnia. 2.Congestive heart failure, chronic, diastolic, with acute exacerbation. 3.Acute kidney injury. 4.Chronic kidney disease stage 4. 5.Hypertension. 6.Anemia due to chronic kidney disease. Plan: We will go ahead and continue current medications. Diuretic medication was discontinued yeste rday and at this point, there is no need to restart diuretic medication. We will continue oxygen rep lacement therapy per order. Continue her BiPAP and I did communicate with the hospital staff and arr angements will be made for patient to use noninvasive ventilator at nighttime and that is what she is using instead of BiPAP here in the hospital and we will continue that, as that particular kind of de vice will be approved by insurance company without diagnosis of COPD. Possible discharge to go home tomorrow. MARY/MODL Voice ID: [id number] Report ID: [id number]
[2022-06-07] MEDS: LEVOTHYROXINE SOD 0.1 MG TAB PO SCH (06:09)
[2022-06-07] MEDS: CITALOPRAM 10 MG TABLET PO SCH (08:21)
[2022-06-07] MEDS: HYDRALAZINE HCL 25 MG TABLET PO SCH ×2 (08:21→21:17)
[2022-06-07] MEDS: AMLODIPINE 5 MG TAB PO SCH ×2 (08:21→21:17)
[2022-06-07] MEDS: acetaZOLAMIDE 250 MG TAB PO SCH ×2 (08:21→21:17)
[2022-06-07] MEDS: FAMOTIDINE 20 MG TAB PO SCH (08:22)
[2022-06-07] MEDS: DOXAZOSIN 2 MG TAB PO SCH ×2 (08:22→21:16)
--- NOTE | 2022-06-07 16:39 | PN ---
Date of Progress Note: 06/07/2022 Subjective: The patient was seen this morning for followup. No new complaints or problems reported by her. She was lying in bed, on nasal cannula oxygen. She did use her noninvasive ventilator for a bout 3 hours last night and did not keep it on for entire night. Her was present with her at bedside. Objective: Vital Signs: Reviewed. HEENT: Unremarkable. Lungs: Clear to auscultation. Heart: Sounds normal. Abdomen: Soft. Bowel sounds normal. No guarding, rigidity, tenderness, distention. Extremities: No leg edema. Impression: 1.Chronic respiratory failure with hypoxia and hypercapnia. 2.Congestive heart failure, chronic, diastolic. 3.Hypertension. 4.Chronic anticoagulation therapy. 5.Pulmonary hypertension due to left heart disease. Plan: We will go ahead and continue warfarin. We are waiting on Social Service to finish arrangemen ts for the patient to get noninvasive ventilator as well as oxygen concentrator at home and once this arrangement gets completed, our plan is to discharge her to go home. Continue current antihypertens hyacinth medications. The patient was advised to use noninvasive ventilator at least 5-6 hours every nigh t. When I saw her this morning, she was on oxygen 3 L/minute nasal cannula. MARY/MODL Voice ID: [id number] Report ID: [id number]
[2022-06-07] MEDS: WARFARIN SODIUM 3 MG TAB PO SCH (17:00)
[2022-06-08] MEDS: LEVOTHYROXINE SOD 0.1 MG TAB PO SCH (05:59)
[2022-06-08 08:04] LABS: Absolute Lymphocytes (CBC) 0.9 K/uL (0.7-4.9); Hematocrit 29.6 % (36.0-45.0); Lymphocytes % 22.8 % (15.3-44.8); MCV 81.9 fL (80-100); MPV 9.3 fL (7.6-11.3); RBC Red Blood Cell Count 3.62 M/uL (3.86-4.86)
[2022-06-08 08:05] LABS: Protime INR 2.08
[2022-06-08 08:16] LABS: Potassium 5.1 mmol/L (3.5-5.1)
[2022-06-08] MEDS: acetaZOLAMIDE 250 MG TAB PO SCH ×2 (08:25→20:50)
[2022-06-08] MEDS: FAMOTIDINE 20 MG TAB PO SCH (08:26)
[2022-06-08] MEDS: DOXAZOSIN 2 MG TAB PO SCH ×2 (08:26→20:50)
[2022-06-08] MEDS: HYDRALAZINE HCL 25 MG TABLET PO SCH ×2 (08:26→20:50)
[2022-06-08] MEDS: CITALOPRAM 10 MG TABLET PO SCH (08:27)
[2022-06-08] MEDS: AMLODIPINE 5 MG TAB PO SCH ×2 (08:27→20:49)
[2022-06-08] MEDS: WARFARIN SODIUM 2 MG TAB PO SCH (16:14)
[2022-06-09] MEDS: LEVOTHYROXINE SOD 0.1 MG TAB PO SCH (05:43)
--- NOTE | 2022-06-09 08:01 | PN ---
Date of Progress Note: 06/08/2022 Subjective: The patient was seen this morning for followup. No new complaints or problems reported by the patient. She was lying in bed, not in distress. Her was with her at bedside. She di d keep her noninvasive ventilator on all night at least 6-7 hours last night. Feels good this emily gloria Denies any new complaints. Objective: Vital Signs: Reviewed. HEENT: Unremarkable. Lungs: Clear to auscultation. Heart: Sounds normal. Abdomen: Soft. Bowel sounds normal. No guarding, rigidity, tenderness, distention. Extremities: No leg edema. Impression: 1.Chronic respiratory failure with hypoxia and hypercapnia. 2.Hypertension. 3.Chronic anticoagulation therapy. 4.Chronic diastolic heart failure, stable. Plan: At this point, there is no evidence of any congestive heart failure requiring any diuretic med ication. We will continue her oxygen replacement therapy as well as her noninvasive ventilator thera py per order. Portable [facility] trying to arrange for noninvasive ventilator for home use and also to replace her current oxygen concentrator with a different concentrator that allows her to get oxygen u p to 10 L/minute as we did notice that her oxygen requirement had gone up when she first came into [facility], now she is down to 3-4 L/minute nasal cannula oxygen, which is like her baseline again. Possible discharge today or tomorrow soon as all the arrangements get completed. MARY/MODL Voice ID: [id number] Report ID: [id number]
[2022-06-09] MEDS: FAMOTIDINE 20 MG TAB PO SCH (08:24)
[2022-06-09] MEDS: DOXAZOSIN 2 MG TAB PO SCH ×2 (08:24→21:01)
[2022-06-09] MEDS: AMLODIPINE 5 MG TAB PO SCH ×2 (08:25→21:01)
[2022-06-09] MEDS: HYDRALAZINE HCL 25 MG TABLET PO SCH ×2 (08:25→21:01)
[2022-06-09] MEDS: CITALOPRAM 10 MG TABLET PO SCH (08:25)
[2022-06-09] MEDS: WARFARIN SODIUM 3 MG TAB PO SCH (17:14)
[2022-06-10] MEDS: LEVOTHYROXINE SOD 0.1 MG TAB PO SCH (06:21)
--- NOTE | 2022-06-10 08:11 | PN ---
Date of Progress Note: 06/09/2022 Subjective: The patient was seen this morning for followup. No new complaints problems reported by her. She did not use her noninvasive ventilator last night as nurse and respiratory therapist decide d on their own not to put it on considering her oxygen saturation with oxygen replacement therapy was normal, so without communicating with me, nurse and respiratory therapist made their own decision in spite of order in the patient's chart to use this machine every night. She denies any new complaint s. Objective: Vital Signs: Reviewed. HEENT: Unremarkable. Lungs: Clear to auscultation. Heart: Sounds normal. Abdomen: Soft. Bowel sounds normal. No guarding, rigidity, tenderness, distention. Extremities: No leg edema. Impression: 1.Chronic respiratory failure with hypoxia and hypercapnia. 2.Hypertension. 3.Acute kidney injury. Plan: We will go ahead and continue to provide her oxygen replacement therapy as well as continue to provide her to use her noninvasive ventilator at nighttime. We are still waiting on all the arrange ments for her to be completed for her to use such device at home and once the arrangement is complete d, she will be able to go home. Continue current antihypertensive medication. Her acute kidney inju ry is due to diuretic use. Her furosemide was stopped a few days ago and she was on acetazolamide, which will be discontinued as well. She was encouraged to drink about 40 ounce s of water daily. MARY/MODL Voice ID: [id number] Report ID: [id number]
[2022-06-10] MEDS: AMLODIPINE 5 MG TAB PO SCH (08:33)
[2022-06-10] MEDS: HYDRALAZINE HCL 25 MG TABLET PO SCH (08:33)
[2022-06-10] MEDS: CITALOPRAM 10 MG TABLET PO SCH (08:33)
[2022-06-10] MEDS: DOXAZOSIN 2 MG TAB PO SCH (08:34)
[2022-06-10] MEDS: FAMOTIDINE 20 MG TAB PO SCH (08:34)
[2022-06-10 09:28] VITALS: O2SAT 94
[2022-06-10 09:39] VITALS: TEMP 98.6
[2022-06-10 11:21] VITALS: BP 163/66
--- NOTE | 2022-06-10 14:11 | DS ---
Date of Discharge: 06/10/2022 Disposition: Discharged to go home. Physical Examination: HEENT: Unremarkable. Lungs: Clear to auscultation. Heart: Sounds normal. Abdomen: Soft. Bowel sounds normal. No guarding, rigidity, tenderness, distention. Extremities: No leg edema. Laboratory Data: Upon admission; white count 4.1, hemoglobin 8.5, platelets 129. Day after admissio n; hemoglobin dropped down to 7.8 and the patient received 1 unit of PRBC blood transfusion and post transfusion hemoglobin came up to 11, which she was falsely higher than expected and on 06/04/2022; w aylin count 4.4, hemoglobin 9.6, platelets 116 and on 06/08/2022; white count 4, hemoglobin 9.3, plate lets 115. Last chemistry from 06/08/2022; sodium 141, potassium 5.1, chloride 104, bicarb 32, BUN 84 , creatinine 2.49, glucose 115. Initial chemistry; sodium 142, potassium 5.2, chloride 107, bicarb 2 7, BUN 52, creatinine 2.01, glucose 110. Initial proBNP 5050. TSH 2.670. Arterial blood gas on ; pH 7.37, pCO2 61.2, pO2 of 43.6, and oxygen saturation 63.4% on 50% FiO2. Discharge Medications And Instructions: 1.Continue all prior home medications. 2.Take doxazosin 2 mg, take 1 tablet 2 times a day. 3.Follow up at my office next week. 4.Use noninvasive ventilator every night. 5.Continue oxygen 3-4 L/minute nasal cannula. Hospital Course: This is a 77-year-old pleasant female patient, admitted to the hospital with shortn ess of breath. Please see dictated H and P. After the patient was evaluated in the office, decision was made to admit her to the hospital. Our initial impression was that the patient had acute exacer bation of diastolic congestive heart failure and after admission, she started IV Lasix and her condit ion did improve, but subsequently we noted that she required more and more oxygen during this hospita lization all the way up to 8 L/minute and arterial blood gas showed evidence of CO2 retention with si gnificant hypoxia and at that time, we started her on noninvasive ventilator at nighttime and during daytime, we continued nasal cannula oxygen. With the treatment using noninvasive ventilator, her con dition improved, shortness of breath problem significantly improved where her oxygen requirement went down between 3-4 L/minute and she remained stable on that. We also discontinued her furosemide amy ral days ago when her BUN and creatinine started to go up and after we started her on noninvasive mauricio tilator, she was only receiving acetazolamide, which we discontinued also because that also increased her BUN and creatinine from where it was before. I have encouraged her to drink about 40 ounces of water a day as she is drinking only about 10-20 ounces a day. Social Service was consulted to make a rrangements for noninvasive ventilator and finally today, all the arrangements have been completed. Respiratory therapist, Brad HomeRachel, was in the room with the patient to provide necessary ed ucation and to set up her noninvasive vent for home use and the patient will be discharged to go home today in stable condition with above-mentioned medication and instructions. Final Diagnoses: 1.Chronic diastolic heart failure, with acute exacerbation. 2.Chronic respiratory failure with hypoxia. 3.Chronic respiratory failure with hypercapnia. 4.Hypertension. 5.Chronic kidney disease, stage 4. 6.Acute kidney injury. 7.Hypertension. 8.Anemia due to chronic kidney disease. 9.Hyperkalemia. MARY/MODL Voice ID: [id number] Report ID: [id number]
== END 2022-06-10 10:55 | disposition home or self-care (01) | DRG 291 ==
LOC: 4TH 12:33
PROVIDERS: ADMIT Internal Medicine; ATTEND Internal Medicine
PROC: 30233N1 Transfusion of Nonautologous Red Blood Cells into Peripheral Vein, Percutaneous Approach (ICD-10-PCS; 2022-06-02)
PROC: 5A09557 Assistance with Respiratory Ventilation, Greater than 96 Consecutive Hours, Continuous Positive Airway Pressure (ICD-10-PCS; principal; 2022-06-04)
DX: I13.0 Hypertensive heart and chronic kidney disease with heart failure and stage 1 through stage 4 chronic kidney disease, or unspecified chronic kidney disease (principal); I50.33 Acute on chronic diastolic (congestive) heart failure; Q25.6 Stenosis of pulmonary artery; J96.12 Chronic respiratory failure with hypercapnia; J96.11 Chronic respiratory failure with hypoxia; N18.4 Chronic kidney disease, stage 4 (severe); N17.9 Acute kidney failure, unspecified; E78.5 Hyperlipidemia, unspecified; D63.1 Anemia in chronic kidney disease; D69.6 Thrombocytopenia, unspecified; E03.9 Hypothyroidism, unspecified; E87.5 Hyperkalemia; I27.22 Pulmonary hypertension due to left heart disease; J44.9 Chronic obstructive pulmonary disease, unspecified; Z23 Encounter for immunization; Z88.1 Allergy status to other antibiotic agents; Z88.5 Allergy status to narcotic agent; Z90.49 Acquired absence of other specified parts of digestive tract; Z99.81 Dependence on supplemental oxygen; Z79.01 Long term (current) use of anticoagulants; Z20.822 Contact with and (suspected) exposure to COVID-19
CPT/HCPCS: 36415; 36430; 71045; 71046; 80048; 80053; 82805; 82947; 83735; 83880; 84443; 84484; 85014; 85018; 85025; 85610; 86850; 86900; 86901; 87811; 90471; 93005; 93306; 94660; 94760; 97110; 97116; 97161; 97530; J1940; J7050; P9016; Q2035